=== PATIENT | female | born 1970 | race Two or more races ===

== ENCOUNTER 2020-05-11 10:28 | Outpatient (REF) | payer BC, SELFPAY | END 2020-05-11 10:29 | disposition home or self-care (01) | LOC: HO.LAB 10:28 | PROVIDERS: PCP Internal Medicine; Visit Provider Internal Medicine | DX: Z20.822 Contact with and (suspected) exposure to COVID-19 (principal) | CPT/HCPCS: 36415; C9803; U0003 ==

== ENCOUNTER 2020-05-17 14:38 | Outpatient (REF) | payer BC, SELFPAY ==
[2020-05-21 15:47] LABS: HPV mRNA E6/E7 rflx Not Detected (Not Detected)
== END 2020-05-17 14:39 | disposition home or self-care (01) ==
LOC: HO.LAB 14:38
PROVIDERS: PCP Internal Medicine; Referring Provider Internal Medicine; Visit Provider Advanced Practice Midwife
DX: Z12.4 Encounter for screening for malignant neoplasm of cervix (principal); N95.1 Menopausal and female climacteric states
CPT/HCPCS: 36415; 87624; 88141; 88142

== ENCOUNTER 2020-06-26 09:38 | Outpatient (REF) | payer BC, SELFPAY | END 2020-06-26 09:39 | disposition home or self-care (01) | LOC: HO.LAB 09:38 | PROVIDERS: PCP Internal Medicine; Visit Provider Internal Medicine | DX: Z20.822 Contact with and (suspected) exposure to COVID-19 (principal) | CPT/HCPCS: 36415; C9803; U0003; U0005 ==

== ENCOUNTER 2020-06-26 10:34 | Outpatient (REF) | payer BC, SELFPAY ==
--- NOTE | ~2020-06-26 | XR_ITS ---
EXAMINATION: XR ANKLE, RIGHT CLINICAL INFORMATION: Pain COMPARISON: Right lower leg x-ray December 2013 TECHNIQUE: AP, lateral, and mortise views of the right ankle. FINDINGS: Bone alignment is normal. No fracture or dislocation is seen. Ankle mortise is normal. There are calcaneal spurs. Soft tissues are otherwise unremarkable. XR/XR ankle RT min 3V IMPRESSION: Calcaneal spurs otherwise unremarkable exam.
== END 2020-06-26 10:35 | disposition home or self-care (01) ==
LOC: HO.XRAY 10:34
PROVIDERS: PCP Internal Medicine; Visit Provider Internal Medicine
DX: M25.579 Pain in unspecified ankle and joints of unspecified foot (principal)
CPT/HCPCS: 73610

== ENCOUNTER 2020-08-02 14:47 | Outpatient (REF) | payer BC, SELFPAY ==
--- NOTE | ~2020-08-02 | MM_ITS ---
EXAMINATION: MM SCREENING DIGITAL BREAST TOMOSYNTHESIS, BILATERAL CLINICAL INFORMATION: Screening. Asymptomatic. The lifetime risk of breast cancer based on the Tyrer-Cuzick Model is 7.7%. COMPARISON: Mammography: March 14, 2019 and studies dating back to August 23, 2010. TECHNIQUE: Digital breast tomosynthesis is performed in both the craniocaudal and mediolateral oblique views along with computer-aided detection (CAD). Synthesized 2D images are generated from the tomosynthesis. FINDINGS: The breasts are heterogeneously dense, which may obscure small masses (ACR BI-RADS breast composition Category c). There are no significant masses, abnormal calcifications, or other abnormalities. MM/MM tomosynthesis screening BI IMPRESSION: No mammographic evidence of malignancy. ASSESSMENT: BI-RADS 1: Negative RECOMMENDATION: Routine annual mammography screening. This patient's information was entered into a reminder system with a target due date for their next mammogram.
== END 2020-08-02 14:48 | disposition home or self-care (01) ==
LOC: HO.MAMMO 14:47
PROVIDERS: Visit Provider Advanced Practice Midwife
DX: Z12.31 Encounter for screening mammogram for malignant neoplasm of breast (principal)
CPT/HCPCS: 77063; 77067

== ENCOUNTER → 2020-10-16 14:31 | Outpatient (BNVA) | payer BC, SELFPAY | PROVIDERS: PCP Internal Medicine; Referring Provider Internal Medicine; Visit Provider Physician Assistant ==

== ENCOUNTER 2020-10-18 07:48 | Outpatient (REF) | payer BC, SELFPAY ==
[2020-10-18 09:21] LABS: MANUAL DIFF FLAG NO
[2020-10-18 09:26] LABS: Basophils Percent Auto 0.4 % (0-2); Eosinophils Percent Auto 0.9 % (0-4); Hematocrit 28.2 % (37-47); Hemoglobin 8.7 g/dl (12.0-16.0); Lymphocytes Absolute Auto 1.6 X10*3/uL (1.2-4.9); Mean Corpuscular HGB Conc 30.9 g/dl (31.0-35.0); Mean Corpuscular Hemoglobin 23.3 pg (27.0-33.0); Mean Corpuscular Volume 75.6 fL (80-98); Mean Platelet Volume 10.1 fL (9.4-12.3); Monocytes Absolute Auto 0.4 X10*3/uL (0.1-1.2); Monocytes Percent Auto 9.9 % (2-11); Neutrophils Absolute Auto 2.4 X10*3/uL (2.0-8.3); Neutrophils Percent Auto 52.8 % (45-73); Platelet Count 274 X10*3/uL (160-400); Red Blood Count 3.73 X10*6/uL (4.20-5.50); Red Cell Distribution Width 17.1 % (11.0-16.0); White Blood Count 4.5 X10*3/uL (4.8-10.8)
[2020-10-18 09:41] LABS: Estimated Average Glucose 105 mg/dL; Hemoglobin A1c % 5.3 %
[2020-10-18 09:57] LABS: Alanine Aminotransferase 31 U/L (0-31); Albumin Level 3.8 g/dL (3.5-5.0); Alkaline Phosphatase 70 U/L (39-117); Anion Gap 11 (12-20); Aspartate Amino Transferase 25 U/L (5-31); Bilirubin Total 0.2 mg/dL (0.0-1.0); Blood Urea Nitrogen 14 mg/dL (9-16); C Reactive Protein 0.08 mg/dL (< or = 0.50); Calcium 8.7 mg/dL (8.4-10.2); Carbon Dioxide 27 mmol/L (22-29); Chloride 108 mmol/L (96-108); Cholesterol 162 mg/dL; Estimated Glomerular Filt Rate > 60; Glucose Random 85 mg/dL (60-115); HDL Cholesterol 64 mg/dL; Iron 18 mcg/dL (30-160); LDL Cholesterol Calculated 92 mg/dl; Percent Iron Saturation 4 % (15-50); Potassium 4.6 mmol/L (3.3-5.1); Sodium 141 mmol/L (135-145); Total Iron Binding Capacity 429 mcg/dL (228-428); Total Protein 6.5 g/dL (6.5-8.0); Triglycerides 34 mg/dL; Unsaturated Iron Binding 411 ug/dL
[2020-10-18 10:00] LABS: Ferritin 2 ng/mL (10-250); TSH reflex Free T4 1.85 uIU/mL (0.32-4.0); Vitamin D 25-OH Total 82.8 ng/mL (>30)
[2020-10-18 10:16] LABS: Folate 13.9 ng/mL (> or = 4.0); Vitamin B12 1049 pg/mL (200-900)
[2020-10-19 14:11] LABS: Calcium (PTHI) 8.9 mg/dL (8.6-10.4); PTHI 52 pg/mL (14-64)
[2020-10-19 22:18] LABS: Insulin Level Total 3.3 uIU/mL
[2020-10-22 03:02] LABS: Zinc 79 mcg/dL (60-130)
[2020-10-24 01:51] LABS: Vitamin A 30 mcg/dL (38-98)
[2020-10-24 10:47] LABS: Vitamin B1 19 nmol/L (8-30)
== END 2020-10-18 07:49 | disposition home or self-care (01) ==
LOC: HO.LAB 07:48
PROVIDERS: Absent Provider Internal Medicine; PCP Internal Medicine; Visit Provider Physician Assistant
DX: Z20.822 Contact with and (suspected) exposure to COVID-19 (principal); E65 Localized adiposity; Z98.84 Bariatric surgery status
CPT/HCPCS: 36415; 80053; 80061; 82306; 82607; 82728; 82746; 83036; 83525; 83540; 83970; 84425; 84443; 84590; 84630; 85025; 86140; C9803; U0003; U0005

== ENCOUNTER 2020-12-24 10:36 | Outpatient (REF) | payer BC, SELFPAY ==
[2020-12-24 11:27] LABS: COVID-19 Test Negative (Negative)
== END 2020-12-24 10:37 | disposition home or self-care (01) ==
LOC: HO.LAB 10:36
PROVIDERS: PCP Internal Medicine; Visit Provider Internal Medicine
DX: Z20.822 Contact with and (suspected) exposure to COVID-19 (principal)
CPT/HCPCS: 36415; 87635; C9803

== ENCOUNTER 2021-01-31 09:48 | Outpatient (REF) | payer BC, SELFPAY | END 2021-01-31 09:49 | disposition home or self-care (01) | LOC: HO.LAB 09:48 | PROVIDERS: PCP Internal Medicine; Visit Provider Internal Medicine | DX: Z20.822 Contact with and (suspected) exposure to COVID-19 (principal) | CPT/HCPCS: C9803; U0003; U0005 ==

== ENCOUNTER 2021-04-30 14:47 | Outpatient (REF) | payer BC, SELFPAY ==
[2021-04-30 15:02] LABS: MANUAL DIFF FLAG NO
[2021-04-30 15:29] LABS: Appearance Urine CLEAR; Color Urine YELLOW; Glucose Urine UA NEG (NEG); Leukocyte Esterase Urine NEG (NEG); Nitrite Urine NEG (NEG); Urine Blood NEG (NEG); Urine Ketones NEG (NEG); Urine Protein NEG (NEG-TRACE)
[2021-04-30 15:30] LABS: Basophils Percent Auto 0.5 % (0-2); Eosinophils Absolute Auto 0.1 X10*3/uL (0.0-0.4); Eosinophils Percent Auto 1.1 % (0-4); Hematocrit 34.9 % (37.0-47.0); Hemoglobin 11.4 g/dl (12.0-16.0); Imm Gran Abs Auto 0.01 X10*3/uL (0.00-0.03); Imm Gran Pct Auto 0.2 % (0.0-0.4); Lymphocytes Absolute Auto 2.5 X10*3/uL (1.2-4.9); Mean Corpuscular HGB Conc 32.7 g/dl (31.0-35.0); Mean Corpuscular Hemoglobin 29.7 pg (27.0-33.0); Mean Corpuscular Volume 90.9 fL (80.0-98.0); Mean Platelet Volume 9.8 fL (9.4-12.3); Monocytes Absolute Auto 0.6 X10*3/uL (0.1-1.2); Monocytes Percent Auto 9.4 % (2-11); Neutrophils Absolute Auto 3.1 x10*3/uL (2.0-8.3); Neutrophils Percent Auto 49.8 % (45-73); Platelet Count 242 X10*3/uL (160-400); Red Blood Count 3.84 X10*6/uL (4.20-5.50); Red Cell Distribution Width 12.8 % (11.0-16.0); White Blood Count 6.3 X10*3/uL (4.8-10.8)
[2021-04-30 15:54] LABS: Alanine Aminotransferase 40 U/L (0-31); Albumin Level 3.8 g/dL (3.5-5.0); Alkaline Phosphatase 73 U/L (39-117); Anion Gap 9 (12-20); Aspartate Amino Transferase 30 U/L (5-31); Bilirubin Total 0.5 mg/dL (0.0-1.0); Blood Urea Nitrogen 11 mg/dL (9-16); Calcium 9.4 mg/dL (8.4-10.2); Carbon Dioxide 29 mmol/L (22-29); Chloride 107 mmol/L (96-108); Estimated Glomerular Filt Rate > 60; Glucose Random 88 mg/dL (60-115); Sodium 141 mmol/L (135-145); Total Protein 6.8 g/dL (6.5-8.0)
[2021-04-30 16:14] LABS: TSH reflex Free T4 3.23 uIU/mL (0.32-4.0)
[2021-05-01 17:57] LABS: Follicle Stimulating Hormone 11.4 mIU/mL
[2021-05-06 10:56] LABS: Vitamin A 31 mcg/dL (38-98)
== END 2021-04-30 14:48 | disposition home or self-care (01) ==
LOC: HO.LAB 14:47
PROVIDERS: PCP Internal Medicine; Visit Provider Internal Medicine
DX: Z00.00 Encounter for general adult medical examination without abnormal findings (principal); N95.1 Menopausal and female climacteric states; Z98.84 Bariatric surgery status
CPT/HCPCS: 36415; 80053; 81003; 83001; 83002; 84443; 84590; 85025

== ENCOUNTER 2021-08-05 08:22 | Outpatient (REF) | payer BC, SELFPAY ==
--- NOTE | ~2021-08-05 | MM_ITS ---
EXAMINATION: MM SCREENING DIGITAL BREAST TOMOSYNTHESIS, BILATERAL CLINICAL INFORMATION: Screening. Asymptomatic. The lifetime risk of breast cancer based on the Tyrer-Cuzick Model is 9%. COMPARISON: Mammography: 08/02/2020, 03/14/2019, 03/03/2018 TECHNIQUE: Digital breast tomosynthesis is performed in both the craniocaudal and mediolateral oblique views along with computer-aided detection (CAD). Synthesized 2D images are generated from the tomosynthesis. FINDINGS: The breasts are heterogeneously dense, which may obscure small masses (ACR BI-RADS breast composition Category c). There are no significant masses, abnormal calcifications, or other abnormalities. There are scattered shifting fibroglandular parenchymal densities overall similar to prior studies. Parenchymal pattern is similar to prior studies. The axilla and skin contours are unremarkable. MM/MM tomosynthesis screening BI IMPRESSION: No mammographic evidence of malignancy. ASSESSMENT: BI-RADS 1: Negative RECOMMENDATION: Routine annual mammography screening. This patient's information was entered into a reminder system with a target due date for their next mammogram.
== END 2021-08-05 08:23 | disposition home or self-care (01) ==
LOC: HO.MAMMO 08:22
PROVIDERS: Visit Provider Internal Medicine
DX: Z12.31 Encounter for screening mammogram for malignant neoplasm of breast (principal)
CPT/HCPCS: 77063; 77067

== ENCOUNTER → 2021-09-10 15:20 | Outpatient (BNVA) | payer BC, SELFPAY | PROVIDERS: PCP Internal Medicine; Visit Provider Advanced Practice Midwife | DX: Z01.419 Encounter for gynecological examination (general) (routine) without abnormal findings (principal) ==

== ENCOUNTER → 2021-09-26 13:56 | Outpatient (BNVA) | payer BC, SELFPAY | PROVIDERS: PCP Internal Medicine; Referring Provider Surgery; Visit Provider Dietitian, Registered | DX: E66.9 Obesity, unspecified (principal) | CPT/HCPCS: 97803 ==

== ENCOUNTER 2021-12-02 12:00 | Outpatient (REF) | payer BC, SELFPAY ==
[2021-12-02 12:18] LABS: MANUAL DIFF FLAG NO
[2021-12-02 12:32] LABS: Basophils Absolute Auto 0.1 X10*3/uL (0.0-0.2); Basophils Percent Auto 0.7 % (0-2); Eosinophils Absolute Auto 0.1 X10*3/uL (0.0-0.4); Eosinophils Percent Auto 0.9 % (0-4); Hemoglobin 9.4 g/dl (12.0-16.0); Imm Gran Abs Auto 0.01 X10*3/uL (0.00-0.03); Imm Gran Pct Auto 0.1 % (0.0-0.4); Lymphocytes Absolute Auto 2.7 X10*3/uL (1.2-4.9); Mean Corpuscular HGB Conc 31.3 g/dl (31.0-35.0); Mean Corpuscular Hemoglobin 23.9 pg (27.0-33.0); Mean Corpuscular Volume 76.3 fL (80.0-98.0); Monocytes Absolute Auto 0.5 X10*3/uL (0.1-1.2); Monocytes Percent Auto 7.7 % (2-11); Neutrophils Absolute Auto 3.6 x10*3/uL (2.0-8.3); Neutrophils Percent Auto 51.6 % (45-73); Platelet Count 266 X10*3/uL (160-400); Red Blood Count 3.93 X10*6/uL (4.20-5.50); Red Cell Distribution Width 15.2 % (11.0-16.0); White Blood Count 6.9 X10*3/uL (4.8-10.8)
[2021-12-02 12:55] LABS: Estimated Average Glucose 105 mg/dL; Hemoglobin A1c % 5.3 %
[2021-12-02 13:05] LABS: Alanine Aminotransferase 35 U/L (0-31); Albumin Level 3.9 g/dL (3.5-5.0); Alkaline Phosphatase 67 U/L (39-117); Anion Gap 12 (12-20); Aspartate Amino Transferase 30 U/L (5-31); Bilirubin Total 0.4 mg/dL (0.0-1.0); Blood Urea Nitrogen 12 mg/dL (9-16); C Reactive Protein 0.05 mg/dL (< or = 0.50); Calcium 8.8 mg/dL (8.4-10.2); Carbon Dioxide 25 mmol/L (22-29); Chloride 106 mmol/L (96-108); Cholesterol 167 mg/dL; Estimated Glomerular Filt Rate > 60; Glucose Random 86 mg/dL (60-115); HDL Cholesterol 62 mg/dL; Iron 31 mcg/dL (30-160); LDL Cholesterol Calculated 98 mg/dl; Percent Iron Saturation 7 % (15-50); Potassium 4.1 mmol/L (3.3-5.1); Sodium 139 mmol/L (135-145); Total Iron Binding Capacity 446 mcg/dL (228-428); Total Protein 6.9 g/dL (6.5-8.0); Triglycerides 36 mg/dL; Unsaturated Iron Binding 415 ug/dL
[2021-12-02 13:17] LABS: Free T4 (Free Thyroxine) 1.11 ng/dL (0.71-1.85); Thyroid Stimulating Hormone 4.07 uIU/mL (0.32-4.0)
[2021-12-02 13:26] LABS: Ferritin 7 ng/mL (10-250); Insulin 5 uU/mL (2-29); TSH reflex Free T4 4.57 uIU/mL (0.32-4.0); Vitamin D 25-OH Total 76.2 ng/mL (>30)
[2021-12-02 13:28] LABS: Folate 15.6 ng/mL (> or = 4.0); Vitamin B12 1535 pg/mL (200-900)
[2021-12-03 11:12] LABS: Calcium (PTHI) 8.9 mg/dL (8.6-10.4); PTHI 84 pg/mL (16-77)
[2021-12-04 05:15] LABS: Triiodothyronine T3 Free 2.8 pg/mL (2.3-4.2)
[2021-12-04 06:37] LABS: Thyroid Peroxidase Antibodies 76 IU/mL (<9)
[2021-12-06 14:36] LABS: Zinc 145 mcg/dL (60-130)
[2021-12-06 17:23] LABS: Vitamin A 31 mcg/dL (38-98)
[2021-12-09 11:42] LABS: Vitamin B1 23 nmol/L (8-30)
== END 2021-12-02 12:01 | disposition home or self-care (01) ==
LOC: HO.LAB 12:00
PROVIDERS: Absent Provider Physician Assistant; Visit Provider Nurse Practitioner Family
DX: E50.9 Vitamin A deficiency, unspecified (principal); E55.9 Vitamin D deficiency, unspecified; R63.5 Abnormal weight gain; L65.9 Nonscarring hair loss, unspecified; Z98.84 Bariatric surgery status
CPT/HCPCS: 36415; 80053; 80061; 82306; 82607; 82728; 82746; 83036; 83525; 83540; 83970; 84425; 84439; 84443; 84481; 84590; 84630; 85025; 86140; 86376

== ENCOUNTER → 2021-12-20 11:14 | Outpatient (BNV) | payer BC, SELFPAY | PROVIDERS: PCP Nurse Practitioner Family; Referring Provider Nurse Practitioner Family; Visit Provider Internal Medicine | DX: D50.9 Iron deficiency anemia, unspecified (principal) | CPT/HCPCS: 99204; 99213; 99214 ==

== ENCOUNTER 2022-01-22 11:27 | Outpatient (REF) | payer BC, SELFPAY | END 2022-01-22 11:28 | disposition home or self-care (01) | LOC: HO.MDS 11:27 | PROVIDERS: Visit Provider Internal Medicine | DX: D50.9 Iron deficiency anemia, unspecified (principal) | CPT/HCPCS: 96365; J1756 ==

== ENCOUNTER 2022-01-30 09:07 | Outpatient (REF) | payer BC, SELFPAY | END 2022-01-30 09:08 | disposition home or self-care (01) | LOC: HO.MDS 09:07 | PROVIDERS: Visit Provider Internal Medicine | DX: D50.9 Iron deficiency anemia, unspecified (principal) | CPT/HCPCS: 96365; J1756 ==

== ENCOUNTER 2022-02-06 09:01 | Outpatient (REF) | payer BC, SELFPAY | END 2022-02-06 09:02 | disposition home or self-care (01) | LOC: HO.MDS 09:01 | PROVIDERS: Visit Provider Internal Medicine | DX: D50.9 Iron deficiency anemia, unspecified (principal) | CPT/HCPCS: 96365; J1756 ==

== ENCOUNTER 2022-02-13 07:56 | Outpatient (REF) | payer BC, SELFPAY | END 2022-02-13 07:57 | disposition home or self-care (01) | LOC: HO.MDS 07:56 | PROVIDERS: Visit Provider Internal Medicine | DX: D50.9 Iron deficiency anemia, unspecified (principal) | CPT/HCPCS: 96365; J1756 ==

== ENCOUNTER 2022-02-17 16:15 | Outpatient (REF) | payer BC, SELFPAY ==
[2022-02-18 14:03] LABS: H Pylori Breath Test Negative (Negative)
== END 2022-02-17 16:16 | disposition home or self-care (01) ==
LOC: HO.LNP 16:15
PROVIDERS: Visit Provider Physician Assistant
DX: A04.8 Other specified bacterial intestinal infections (principal)
CPT/HCPCS: 83013

== ENCOUNTER 2022-02-20 07:58 | Outpatient (REF) | payer BC, SELFPAY | END 2022-02-20 07:59 | disposition home or self-care (01) | LOC: HO.MDS 07:58 | PROVIDERS: Visit Provider Internal Medicine | DX: D50.9 Iron deficiency anemia, unspecified (principal) | CPT/HCPCS: 96365; J1756 ==

== ENCOUNTER 2022-03-04 07:04 | Outpatient (REF) | payer BC, SELFPAY ==
[2022-03-04 07:27] LABS: Hematocrit 37.3 % (37.0-47.0); Hemoglobin 12.6 g/dl (12.0-16.0); Mean Corpuscular HGB Conc 33.8 g/dl (31.0-35.0); Mean Corpuscular Volume 85.7 fL (80.0-98.0); Mean Platelet Volume 9.8 fL (9.4-12.3); Platelet Count 206 X10*3/uL (160-400); Red Blood Count 4.35 X10*6/uL (4.20-5.50); Red Cell Distribution Width 18.3 % (11.0-16.0); White Blood Count 7.3 X10*3/uL (4.8-10.8)
[2022-03-04 08:07] LABS: Free T4 (Free Thyroxine) 1.24 ng/dL (0.71-1.85); TSH reflex Free T4 0.78 uIU/mL (0.32-4.0)
[2022-03-05 12:12] LABS: Transglutaminase IgA <1.0 U/mL
[2022-03-05 12:22] LABS: Thyroid Peroxidase Antibodies 90 IU/mL (<9)
[2022-03-08 13:06] LABS: Endomysial IgA Antibody Negative (Negative)
== END 2022-03-04 07:05 | disposition home or self-care (01) ==
LOC: HO.LAB 07:04
PROVIDERS: Physician Assistant; Absent Provider Internal Medicine Endocrinology, Diabetes & Metabolism; PCP Nurse Practitioner Family; Visit Provider Nurse Practitioner Family
DX: E03.9 Hypothyroidism, unspecified (principal); D64.9 Anemia, unspecified
CPT/HCPCS: 36415; 84439; 84443; 85027; 86231; 86364; 86376

== ENCOUNTER → 2022-05-30 08:04 | Outpatient (BNVA) | payer BC, SELFPAY | PROVIDERS: PCP Nurse Practitioner Family; Visit Provider Internal Medicine Endocrinology, Diabetes & Metabolism | DX: E03.9 Hypothyroidism, unspecified (principal) ==

== ENCOUNTER 2022-08-11 07:51 | Outpatient (REF) | payer BC, SELFPAY ==
--- NOTE | ~2022-08-11 | MM_ITS ---
EXAMINATION: MM SCREENING DIGITAL BREAST TOMOSYNTHESIS, BILATERAL CLINICAL INFORMATION: Screening. Asymptomatic. The lifetime risk of breast cancer based on the Tyrer-Cuzick Model is 10%. COMPARISON: Mammography: 08/05/2021, 08/02/2020, 03/14/2019, 03/03/2018 TECHNIQUE: Digital breast tomosynthesis is performed in both the craniocaudal and mediolateral oblique views along with computer-aided detection (CAD). Synthesized 2D images are generated from the tomosynthesis. FINDINGS: The breasts are heterogeneously dense, which may obscure small masses (ACR BI-RADS breast composition Category c). Parenchymal pattern is similar to prior studies. There is no developing density or architectural abnormality. There are scattered bilateral minor stable asymmetries. The axilla and skin contours are unremarkable. There are no significant masses, abnormal calcifications, or other abnormalities. No significant changes from prior exams. MM/MM tomosynthesis screening BI IMPRESSION: No mammographic evidence of malignancy. ASSESSMENT: BI-RADS 2: Benign RECOMMENDATION: Routine annual mammography screening. This patient's information was entered into a reminder system with a target due date for their next mammogram.
== END 2022-08-11 07:52 | disposition home or self-care (01) ==
LOC: HO.MAMMO 07:51
PROVIDERS: PCP Internal Medicine; Visit Provider Internal Medicine
DX: Z12.31 Encounter for screening mammogram for malignant neoplasm of breast (principal)
CPT/HCPCS: 77063; 77067

== ENCOUNTER 2022-08-20 09:26 | Outpatient (REF) | payer BC, SELFPAY ==
[2022-08-20 10:33] LABS: Hematocrit 37.3 % (37.0-47.0); Hemoglobin 12.6 g/dl (12.0-16.0); Mean Corpuscular HGB Conc 33.8 g/dl (31.0-35.0); Mean Corpuscular Hemoglobin 30.1 pg (27.0-33.0); Mean Platelet Volume 9.9 fL (9.4-12.3); Platelet Count 228 X10*3/uL (160-400); Red Blood Count 4.19 X10*6/uL (4.20-5.50); Red Cell Distribution Width 12.9 % (11.0-16.0); White Blood Count 7.1 X10*3/uL (4.8-10.8)
[2022-08-20 11:12] LABS: Anion Gap 9 (12-20); Blood Urea Nitrogen 20 mg/dL (9-16); Carbon Dioxide 29 mmol/L (22-29); Chloride 108 mmol/L (96-108); Estimated Glomerular Filt Rate > 60; Glucose Random 84 mg/dL (60-115); Potassium 4.4 mmol/L (3.3-5.1); Sodium 142 mmol/L (135-145)
[2022-08-20 11:44] LABS: Folate 5.9 ng/mL (> or = 4.0); TSH reflex Free T4 2.32 uIU/mL (0.32-4.0); Vitamin B12 877 pg/mL (200-900); Vitamin D 25-OH Total 88.8 ng/mL (>30)
== END 2022-08-20 09:27 | disposition home or self-care (01) ==
LOC: HO.LAB 09:26
PROVIDERS: PCP Nurse Practitioner Family; Visit Provider Nurse Practitioner Family
DX: R63.5 Abnormal weight gain (principal); M79.604 Pain in right leg; R22.0 Localized swelling, mass and lump, head; R12 Heartburn; E03.9 Hypothyroidism, unspecified; D64.9 Anemia, unspecified; J45.909 Unspecified asthma, uncomplicated; L65.9 Nonscarring hair loss, unspecified; Z98.84 Bariatric surgery status
CPT/HCPCS: 36415; 80048; 82306; 82607; 82746; 84443; 85027

== ENCOUNTER 2022-09-04 01:35 | Emergency (ER) | payer BC, SELFPAY ==
[2022-09-04 01:36] VITALS: BP 127/85; PULSE 78; RESP 18; TEMP 36.8; O2SAT 98; BMI 29.9
--- NOTE | 2022-09-04 03:19 | PC.NURSE ---
hand off to yoseph archuleta
[2022-09-04 05:41] VITALS: BP 124/66; PULSE 69; RESP 15; TEMP 36.7; O2SAT 98
== END 2022-09-04 06:19 | disposition left against medical advice (07) ==
PROVIDERS: Emergency Provider Emergency Medicine; PCP Nurse Practitioner Family
DX: S89.91XA Unspecified injury of right lower leg, initial encounter (principal); X50.1XXA Overexertion from prolonged static or awkward postures, initial encounter; Y93.9 Activity, unspecified; Y92.89 Other specified places as the place of occurrence of the external cause; Y99.0 Civilian activity done for income or pay
CPT/HCPCS: 99281; 99284

== ENCOUNTER → 2022-10-02 09:52 | Outpatient (BNVA) | payer BC, SELFPAY | PROVIDERS: PCP Internal Medicine; Visit Provider Orthopaedic Surgery ==

== ENCOUNTER 2022-10-22 11:42 | Day surgery (SDC) | payer BC, SELFPAY ==
--- NOTE | 2022-10-21 11:49 | HO.ANESPROP2 ---
Documented by User: Annette Demarco NP 10/21/22 11:51 HPI - Anesthesia Eval Consult details Narrative: 52yo F for Upper Endoscopy and Colonoscopy PMF Active Problems Active Problems: All Active Problems (Updated 10/17/22 @ 13:34 by Angela Winslow RN) Well woman exam with routine gynecological exam (Acute) Perimenopause (Acute) Ankle pain (Acute) Obese abdomen (Acute) Annual physical exam (Acute) Iron deficiency anemia (Acute) S/P gastric bypass (Acute) Encounter for annual routine gynecological examination (Acute) Weight gain (Acute) Hair loss (Acute) Anemia (Chronic) Elevated parathyroid hormone (Acute) Hypothyroidism (Acute) Heartburn (Acute) Allergic reaction to food (Acute) Swelling of face (Acute) Right leg pain (Acute) Strain of distal biceps femoris tendon (Acute) Tear of right hamstring (Acute) Asthma (Acute) Vitamin D deficiency (Acute) Vitamin A deficiency (Acute) Obesity (BMI 30-39.9) (Acute) Past Medical History Medical History Anemia Asthma Hypothyroid Obesity (BMI 30-39.9) PCOS (polycystic ovarian syndrome) Vitamin A deficiency Vitamin D deficiency Family History Family History Father CAD (coronary artery disease) Mother Thyroid cancer TIA (transient ischemic attack) Alcoholism Sister Thyroid cancer Maternal Aunt History of breast cancer Other Substance abuse Surgical History Surgical History Hx of gastric bypass Hx of tubal ligation LAP-BAND surgery status Social History Social History (Updated 10/02/22 @ 10:06 by Lore Redman CMA) Household Members: Spouse Housing: House Alcohol intake: never Patient Tobacco Use Status: Never used Tobacco Second Hand Smoke Exposure: Yes Use of substances other than those prescribed or required for medical reasons: No Are you DNR?: No Advance Directives: No Advance Directives Information Provided: Yes Patient : No (Tubal ligation) service: No Current occupational status: employed 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 Sexual orientation: Straight/Heterosexual Cognitive needs: No Hearing needs: No Vision needs: Yes Meds Allergies Allergy/AdvReac Type Severity Reaction Status Date / Time adhesive tape [ADHESIVE TAPE] Allergy Intermediate BLISTERS Verified 09/18/22 11:42 shellfish derived Allergy Intermediate HIVES Verified 09/18/22 11:42 [SHELLFISH DERIVED] silver Allergy Intermediate BLISTERS Verified 09/18/22 11:42 [From TEGADERM AG MESH] procaine [From Novocain] Allergy Unknown Unknown Verified 09/18/22 11:42 Home Medications Medication Instructions Recorded Confirmed Last Taken Type ascorbic acid (vitamin C) 500 mg 500 mg PO DAILY 10/16/20 10/17/22 Unknown History capsule calcium carbonate 500 mg calcium 500 mg PO DAILY 10/16/20 10/17/22 Unknown History (1,250 mg) chewable tablet (Calcium 500) cholecalciferol (vitamin D3) 50 50 mcg PO DAILY 10/16/20 10/17/22 Unknown History mcg (2,000 unit) capsule Exam Exam Date and Time: October 21, 2022 114 Pertinent Lab Results Pertinent Lab Results: Laboratory Tests 08/20/22 08/20/22 09:37 09:37 WBC 7.1 Hgb 12.6 Hct 37.3 Plt Count 228 Sodium 142 Potassium 4.4 Chloride 108 Carbon Dioxide 29 BUN 20 H Creatinine 0.84 Assessment and Plan Assessment Anesthesia Assessment: Chart Reviewed Documented by User: Emiliana Petersen MD 10/22/22 12:52 [facility] Past Medical History Medical History Anemia Asthma Hypothyroid Obesity (BMI 30-39.9) PCOS (polycystic ovarian syndrome) Vitamin A deficiency Vitamin D deficiency Family History Family History Father CAD (coronary artery disease) Mother Thyroid cancer TIA (transient ischemic attack) Alcoholism Sister Thyroid cancer Maternal Aunt History of breast cancer Other Substance abuse Family history of problems with anesthesia: No Surgical History Surgical History Hx of gastric bypass Hx of tubal ligation LAP-BAND surgery status History of Problems with Anesthesia: No Social History Social History (Updated 10/02/22 @ 10:06 by Lore Redman CMA) Household Members: Spouse Housing: House Alcohol intake: never Patient Tobacco Use Status: Never used Tobacco Second Hand Smoke Exposure: Yes Use of substances other than those prescribed or required for medical reasons: No Are you DNR?: No Advance Directives: No Advance Directives Information Provided: Yes Patient : No (Tubal ligation) service: No Current occupational status: employed 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 Sexual orientation: Straight/Heterosexual Cognitive needs: No Hearing needs: No Vision needs: Yes Meds Allergies Allergy/AdvReac Type Severity Reaction Status Date / Time adhesive tape [ADHESIVE TAPE] Allergy Intermediate BLISTERS Verified 09/18/22 11:42 shellfish derived Allergy Intermediate HIVES Verified 09/18/22 11:42 [SHELLFISH DERIVED] silver Allergy Intermediate BLISTERS Verified 09/18/22 11:42 [From TEGADERM AG MESH] procaine [From Novocain] Allergy Unknown Unknown Verified 09/18/22 11:42 Home Medications Medication Instructions Recorded Confirmed Last Taken Type ascorbic acid (vitamin C) 500 mg 500 mg PO DAILY 10/16/20 10/17/22 Unknown History capsule calcium carbonate 500 mg calcium 500 mg PO DAILY 10/16/20 10/17/22 Unknown History (1,250 mg) chewable tablet (Calcium 500) cholecalciferol (vitamin D3) 50 50 mcg PO DAILY 10/16/20 10/17/22 Unknown History mcg (2,000 unit) capsule Exam Airway Mallampati Class: II (top 3 front teeth caps) TM Dist: >3cm Neck ROM: Full Heart: rrr Lungs: cta Assessment and Plan Assessment Anesthesia Assessment: Anesthesia Plan Discussed Final Anesthetic Review Family History of Problems with Anesthesia: No History of Problems with Anesthesia: No NPO: Yes ASA Class: II Final Preanesthetic Review: No Changes in Pt Med Stat, Meds/Allgs Chart Reviewed and Consent Obtained/Reviewed Patient Risk: Intermediate Procedure Risk: Intermediate Anesthetic Plan Anesthetic Plan: MAC: Disposition: Standard PACU
[2022-10-22 12:21] VITALS: BMI 39.1
[2022-10-22 12:27] VITALS: BP 133/80; PULSE 58; RESP 16; TEMP 36.1; O2SAT 98
[2022-10-22 12:30] VITALS: BMI 39.1
--- NOTE | 2022-10-22 12:43 | P.HPSUR_ITS ---
Pre-Procedural Eval Section A Date of Service: 10/22/22 Section B Chief Complaint: anemia Relevant Family History (Specify if Yes): Yes Relevant Social History: None Present Medications: see Short Stay Collaborative assessment Medical History: Significant History (Anemia Asthma Hypothyroid Obesity (BMI 30- 39.9) PCOS (polycystic ovarian syndrome) Vitamin A deficiency Vitamin D deficiency) History of Previous Operations: Relevant previous surgery/procedure and date(s) (Hx of gastric bypass Hx of tubal ligation LAP-BAND surgery status) Allergies: Allergies Allergy/AdvReac Type Severity Reaction Status Date / Time adhesive tape [ADHESIVE TAPE] Allergy Intermediate BLISTERS Verified 09/18/22 11:42 shellfish derived Allergy Intermediate HIVES Verified 09/18/22 11:42 [SHELLFISH DERIVED] silver Allergy Intermediate BLISTERS Verified 09/18/22 11:42 [From TEGADERM AG MESH] procaine [From Novocain] Allergy Unknown Unknown Verified 09/18/22 11:42 Review of Systems Sugical H&P ROS: Negative: Constitution, Cardiovascular, Respiratory, Neurol ogical, Psychiatric, Hem-Onc, Allergic/Immunologic, Gastrointestinal, Genitourinary, Musculoskeletal, Integumentary, Endocrine and Eyes/Ears/Nose/Throat Exam Surgical H&P Exam: Normal: HEENT, Normal: Heart, Normal: Lungs, Normal: Extremities, Normal: Abdomen, Normal: Skin and Normal: Neurological Plan Diagnosis/Plan: Unchanged I have reviewed the history and physical and performed a pertinent physical examination on my patient. No changes have occurred unless specified. Time Spent With Patient Time: Total time managing care of this patient today ____ minutes.
[2022-10-22] MEDS: Lactated Ringers 1,000 ML 100 ML IVCONT (12:45)
--- NOTE | 2022-10-22 12:50 | W.PM.OPN ---
Operative Note Operative Note Date of Service: 10/22/22 Narrative: Operative Information Procedure Description: EGD, Colonoscopy Indication: anemia Anesthesia: MAC FLEXIBLE TRANSORAL UPPER GASTROINTESTINAL ENDOSCOPY AND COLONOSCOPY PROCEDURE NOTE UPPER ENDOSCOPY Consent: Indications for the procedure and potential complications of bleeding, perforation, reaction to medications and missed diagnosis were discussed with the patient and informed consent was obtained. Instrument: Olympus GIF H 190 J mid size upper endoscope Monitoring: Vital signs and clinical assessment, continuous EKG monitoring, Pulse oximetry, Carbon Dioxide monitoring and blood pressure monitoring were done throughout the procedure. Procedure: The patient was placed in the left lateral decubitis position and pre-procedure medications were administered and a bite block was placed. The endoscope was inserted into the mouth and advanced under direct vision to the third part of duodenum. A careful inspection was made as the upper endoscope was withdrawn including a retroflexed examination of the proximal stomach; Findings and interventions are described below. History of gastric bypass Findings: Larynx:normal Esophagus: GE junction at 36 cm, diaphragm hiatus at 36 cm, bogginess and erythema at GEJ, bx taken Stomach pouch: Patchy erythema around the anastomosis. Biopsies were obtained. Grade 2 flap valve on retroflexed examination of the cardia. Retained staple with suture noted and removed with cold forceps Jejunum: Normal , bx taken Intervention: Biopsies as noted above, removal of retained suture and staple COLONOSCOPY Instrument: Olympus variable stiffness pediatric scope 190L Colonoscopy Monitoring: Vital signs and clinical assessment, continuous EKG monitoring, Pulse oximetry, Carbon Dioxide monitoring and blood pressure monitoring were done throughout the procedure. Colon withdrawal time was 6 minutes. Procedure: The patient was placed in the left lateral decubitis position and pre-procedure medications were administered. After a digital rectal examination of the ano-rectum, the video colonoscope was inserted into the rectum and advanced through the colon to the cecum/TI. The colonoscope was slowly withdrawn in a retrograde panoramic fashion and the colon mucosa was carefully examined including a retroflexed view of the rectum. Findings and interventions are described below. Procedure Difficulty: moderate due to tortuous colon Findings: Terminal Ileum-normal Cecum:normal Ascending Colon: normal Transverse Colon -normal Descending Colon:normal Sigmoid Colon: normal Rectum: Retroflexion with medium sized internal hemorrhoids, grade II Anorectum - normal Colon preparation: Winslow Bowel Preparation Scale Right colon; 2 Transverse colon: 3 Left colon; 3 (0 = Unprepared colon segment with mucosa not seen due to solid stool that cannot be cleared. 1 = Portion of mucosa of the colon segment seen, but other areas of the colon segment not well seen due to staining, residual stool and/or opaque liquid. 2 = Minor amount of residual staining, small fragments of stool and/or opaque liquid, but mucosa of colon segment seen well. 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
[2022-10-22 13:35] VITALS: BP 109/63; PULSE 84; RESP 16; TEMP 36.4; O2SAT 96
[2022-10-22 13:53] VITALS: BP 130/80; PULSE 65; RESP 17; TEMP 36.8; O2SAT 99
== END 2022-10-22 14:39 | disposition home or self-care (01) ==
PROVIDERS: PCP Nurse Practitioner Family; Visit Provider Internal Medicine Gastroenterology
PROC: (CPT 45378; principal; 2022-10-22 13:20)
DX: D64.9 Anemia, unspecified (principal); K64.1 Second degree hemorrhoids; Q43.8 Other specified congenital malformations of intestine; Z98.84 Bariatric surgery status; K29.50 Unspecified chronic gastritis without bleeding; K20.80 Other esophagitis without bleeding; K44.9 Diaphragmatic hernia without obstruction or gangrene; Z18.9 Retained foreign body fragments, unspecified material; R12 Heartburn; E03.9 Hypothyroidism, unspecified; E50.9 Vitamin A deficiency, unspecified; E55.9 Vitamin D deficiency, unspecified; E66.9 Obesity, unspecified; Z68.36 Body mass index [BMI] 36.0-36.9, adult; J45.909 Unspecified asthma, uncomplicated; E28.2 Polycystic ovarian syndrome; Z79.899 Other long term (current) drug therapy; L23.1 Allergic contact dermatitis due to adhesives; Z88.8 Allergy status to other drugs, medicaments and biological substances; Z98.51 Tubal ligation status
CPT/HCPCS: 45378; 43239; 43247; 88305; 88342

== ENCOUNTER 2022-10-31 13:00 | Outpatient (RCR) | payer OTHER, BC, SELFPAY ==
--- NOTE | 2022-09-18 11:57 | MHC.PT.EP ---
[facility] [place] [facility] Office [place] Office [address] [phone] F: [phone] F: [phone] F: [phone] F: [phone] Physical Therapy Plan of Care Date of Evaluation: Date of Surgery: n/a Diagnosis: pain in R leg Assessment: Patient is a 52 year old female presenting to PT with complaints of pain in her R thigh. Pt reports onset of pain began 09/04/2022 due to restraining a client at work. She presents today with impairments in pain, knee ROM, hip strength, swelling, bruising. 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 Pt expresses intermediate manager goal of returning to [employer], and is motivated to work towards this in PT. Clinical presentation today is most consistent with signs and sx associated with possible hs injury with possible tear due to severe bruising and pt will benefit from skilled PT 2 week x 4 weeks to address the following problems and impairments noted upon evaluation: pain, knee ROM, hip strength, swelling, bruising. These problems limit the patient with the following functional activities: ambulating, stair negotiation, ADLs, sitting, standing. The prescribed treatment plan of care is medically necessary. Co-morbidities of none were identified and taken into considerations of plan of care. Pt was educated on HEP, role of PT, prognosis, POC. Advised pt to get referral to ortho due to severity of bruising and concern for possible hs tear to be sure the injury is managed properly. Frequency and Duration: The patient will be seen 2 x week x 4 weeks Short Term Goals: Pt will demonstrate improved bruising to distal hs in 2 weeks. Pt will demonstrate hip MMT strength at least 4/5 in 2 weeks for improved lumbopelvic stability. Pt will demonstrate knee MMT strength improved by 1/3 grade in 2 weeks. Pt will demonstrate ability to sit with equal weight distribution in 2 weeks and minimal pain. Senior Living Goals: Pt will demonstrate improved LEFI score by 9 points in 4 weeks for improved functional mobility. Pt will demonstrate ability to ambulate with normal mechanics in 4 weeks for improved ability to work and complete ADLs. Pt will demonstrate ability to negotiate stairs with min to no pain in 4 weeks for return to PLOF. Treatment Plan: Modalities to reduce pain, spasms and effusion. Manual therapy to restore motion and function. Therapeutic exercise to improve strength and flexibility. Neuromuscular re-education for posture and balance. Therapeutic activities to return to functional activities of daily living. Electronically signed by: Denice Doyle, PT, DPT, ATC Please sign and return to therapist. Thank you for your referral.
--- NOTE | 2022-10-31 14:02 | MHC.PT.DC ---
[facility] [place] Office [place] Office [place] Office [address] [phone] F: [phone] F: [phone] F: [phone] F: [phone] Physical Therapy Discharge Report Diagnosis: pain in R leg Date of Surgery: n/a Date of Evaluation: 09/18/22 Date of Discharge: 10/31/22 Treatments to Date: 5 Cancellations to Date: 2 No Shows to Date: 2 Discharge Status: Improved Function Independent with HEP Discharge Summary: 10/31/2022: Pt has made progress since start of care. Her strength, ROM, and bruising is improved however she is still having some difficulty descending stairs. She is independent and compliant with her HEP and understands importance of custodial continuation. At this time max benefits of PT have been provided and skilled PT is no longer indicated. We reviewed amount of time until full recovery as well as following up with the doctor if issues continue longer term. She is in agreement with d/c and plan. Electronically signed by: Denice Doyle, PT, DPT, ATC Please sign and return to therapist. Thank you for your referral.
== END 2022-10-31 14:02 | disposition home or self-care (01) ==
LOC: HO.PTCHIC 13:00
PROVIDERS: PCP Internal Medicine; Visit Provider Internal Medicine
DX: S86.811A Strain of other muscle(s) and tendon(s) at lower leg level, right leg, initial encounter (principal)
CPT/HCPCS: 97110; 97140; 97161

== ENCOUNTER → 2022-11-05 07:53 | Outpatient (BNVA) | payer BC, SELFPAY | PROVIDERS: Visit Provider Physician Assistant | DX: D64.9 Anemia, unspecified (principal); K21.9 Gastro-esophageal reflux disease without esophagitis; Z98.84 Bariatric surgery status; Z98.890 Other specified postprocedural states | CPT/HCPCS: 99212 ==

== ENCOUNTER 2023-01-21 11:56 | Outpatient (AMB) | payer BC, SELFPAY ==
--- NOTE | 2023-01-21 12:58 | MHC.OFFWIV ---
Intake Vital Signs 01/21/23 13:01 Height 25 in Weight 213 lb BMI 239.6 BP 122/74 Blood Pressure Location Rt brachial Position Sitting Pulse 65 Pulse Source Pulse Oximeter Temp 97.3 F Temp Source Temporal Artery Scan Pulse Oximetry (%) 98 Oxygen Delivery Method Room Air Intake Visit Reasons: EP ?Strep (masked) Intake Note: Pt is here requesting to get tested for strep as multiple people tested ositive and she now has a sore throat. Patient Tobacco Use Status: Never used Tobacco Allergies adhesive tape [ADHESIVE TAPE] Allergy (Intermediate, Verified 01/21/23 13:29) BLISTERS shellfish derived [SHELLFISH DERIVED] Allergy (Intermediate, Verified 01/21/23 13:29) HIVES silver [From TEGADERM AG MESH] Allergy (Intermediate, Verified 01/21/23 13:29) BLISTERS procaine [From Novocain] Allergy (Unknown, Verified 01/21/23 13:29) Unknown Medication List - Last Reconciled 01/21/23 by Ki Stout MD albuterol sulfate 90 mcg/actuation (ProAir HFA) 2 puffs inhalation Q6H PRN 30 days ascorbic acid (vitamin C) 500 mg PO DAILY azithromycin take 500 mg today (day 1), then 250 mg for 4 days (days 2-5) PO calcium carbonate (Calcium 500) 500 mg PO DAILY cholecalciferol (vitamin D3) 50 mcg PO DAILY epinephrine (EpiPen 2-Constantine) 0.3 mg (0.3 mL) IM Q4H PRN levothyroxine (Synthroid) 75 mcg PO DAILY loratadine 10 mg PO DAILY magnesium 250 mg PO BID omeprazole 20 mg PO DAILY 30 days tizanidine (Zanaflex) 4 mg PO BID PRN 10 days vitamin A 20,000 units PO DAILY 90 days zinc acetate (Galzin) 50 mg PO DAILY Do you need a note to return to daycare/school/sports/work: Yes HPI EP ?Strep (masked) HPI Details Patient presents for a sick visit. Reporting symptoms of sinus congestion, sore throat and difficulty swallowing. Low-grade fever. No family member is sick. No recent travel. Patient reports symptoms of malaise and fatigue. [facility] Medical History Anemia Asthma Hypothyroid Obesity (BMI 30-39.9) PCOS (polycystic ovarian syndrome) Vitamin A deficiency Vitamin D deficiency Surgical History History of esophagogastroduodenoscopy (EGD) Hx of colonoscopy Hx of gastric bypass Hx of tubal ligation LAP-BAND surgery status Family History Father CAD (coronary artery disease) Mother Thyroid cancer TIA (transient ischemic attack) Alcoholism Sister Thyroid cancer Maternal Aunt History of breast cancer Other Substance abuse Social History Household Members: Spouse Housing: House Alcohol intake: never Patient Tobacco Use Status: Never used Tobacco Second Hand Smoke Exposure: Yes service: No Current occupational status: employed 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 Sexual orientation: Straight/Heterosexual Cognitive needs: No Hearing needs: No Vision needs: Yes Female Reproductive History Menstrual Age of Menarche: 9 Physical Exam Vital Signs: Last Vital Signs Temp 97.3 F 01/21/23 13:01 Pulse 65 01/21/23 13:01 BP 122/74 01/21/23 13:01 Pulse Ox 98 01/21/23 13:01 Oxygen Delivery Method Room Air 01/21/23 13:01 BMI result Body Mass Index 239.6 Const General: cooperative and healthy appearing Nutritional Appearance: well nourished Orientation/consciousness: patient oriented x3 Limitations: no limitations HEENT Head: Yes normal to inspection Eyes General: appearance normal, both eyes and all related structures Neck Neck: Yes normal visual inspection Chest Chest palpation & inspection: normal palpation of entire chest wall Resp Effort & Inspection: normal respiratory effort Neuro General: patient oriented x3 Results AMB Rapid Strep AMB Rapid Strep Negative Last Edit by Luciana Mills CMA on 01/21/23 13:13 Results Reviewed Results Reviewed: Laboratory Last Values Strep Scn Rapid Clinic Negative 01/21/23 13:12 Assessment & Plan Assessment & Plan (1) Upper respiratory tract infection: Code(s): J06.9 - Acute upper respiratory infection, unspecified Qualifiers: URI type: acute pharyngitis Pharyngitis/tonsillitis etiology: unspecified etiology Qualified Code(s): J02.9 - Acute pharyngitis, unspecified Plan: Strep test was negative. Antibiotics ordered. Increase fluid intake. Tylenol for aches and pains. If symptoms worsen, follow-up here for a recheck. Orders: Orders SARS-CoV2/FLU/RSV Today R43.9 - Unspecified disturbances of smell and taste AMB Rapid Strep Screen Today Z13.9 - Encounter for screening, unspecified Medications: New azithromycin take 500 mg today (day 1), then 250 mg for 4 days (days 2-5) PO 6 tabs 0RF Coding Level of Care Code Est Pt Level 3 (31876) Diagnoses Acute pharyngitis, unspecified etiology J02.9 URI type: acute pharyngitis Pharyngitis/tonsillitis etiology: unspecified etiology
[2023-01-21 13:01] VITALS: BP 122/74; PULSE 65; TEMP 36.3; O2SAT 98; BMI 239.6
== END 2023-01-21 14:07 | disposition home or self-care (01) ==
PROVIDERS: PCP Nurse Practitioner Family; Visit Provider Internal Medicine
DX: J02.9 Acute pharyngitis, unspecified (principal)
CPT/HCPCS: 87880; 99213

== ENCOUNTER 2023-01-21 16:26 | Outpatient (REF) | payer BC, SELFPAY ==
[2023-01-21 18:01] LABS: Influenza A PCR NEGATIVE (Negative); Influenza B PCR NEGATIVE (Negative); Resp Syncy Virus RNA Qual PCR NEGATIVE (Negative); SARS COV2 PCR INHOUSE NEGATIVE (Negative)
== END 2023-01-21 16:27 | disposition home or self-care (01) ==
LOC: HO.LNP 16:26
PROVIDERS: Visit Provider Internal Medicine
DX: Z20.822 Contact with and (suspected) exposure to COVID-19 (principal); R43.9 Unspecified disturbances of smell and taste
CPT/HCPCS: 0241U

== ENCOUNTER 2023-01-23 06:27 | Outpatient (REF) | payer BC, SELFPAY ==
[2023-01-23 08:03] LABS: Estimated Average Glucose 108 mg/dL; Hemoglobin A1c % 5.4 % (<6.0)
[2023-01-23 08:33] LABS: Cholesterol 160 mg/dL (<200); HDL Cholesterol 67 mg/dL (>40); LDL Cholesterol Calculated 84 mg/dL (<100); Triglycerides 48 mg/dL (<150)
[2023-01-23 08:50] LABS: Insulin 6 uU/mL (2-29)
== END 2023-01-23 06:28 | disposition home or self-care (01) ==
LOC: HO.LAB 06:27
PROVIDERS: PCP Nurse Practitioner Family; Visit Provider Registered Nurse Emergency
DX: Z13.220 Encounter for screening for lipoid disorders (principal); Z13.1 Encounter for screening for diabetes mellitus; E66.09 Other obesity due to excess calories; E03.9 Hypothyroidism, unspecified
CPT/HCPCS: 36415; 80061; 83036; 83525

== ENCOUNTER 2023-02-19 13:33 | Outpatient (AMB) | payer BC, SELFPAY ==
[2023-02-19 13:35] VITALS: BP 110/72; PULSE 69; O2SAT 97; BMI 40.3
--- NOTE | 2023-02-19 13:35 | A.OFFPC_ITS ---
Vital Signs 02/19/23 13:35 Height 5 ft 1 in Weight 213 lb 0.8 oz BMI 40.3 BP 110/72 Blood Pressure Location Lt brachial Position Sitting Pulse 69 Pulse Source Pulse Oximeter Temp Source Skin Pulse Oximetry (%) 97 Oxygen Delivery Method Room Air Intake Visit Reasons: Annual Exam [place] Operator Required: No Allergies adhesive tape [ADHESIVE TAPE] Allergy (Intermediate, Verified 02/19/23 14:05) BLISTERS shellfish derived [SHELLFISH DERIVED] Allergy (Intermediate, Verified 02/19/23 14:05) HIVES silver [From TEGADERM AG MESH] Allergy (Intermediate, Verified 02/19/23 14:05) BLISTERS procaine [From Novocain] Allergy (Unknown, Verified 02/19/23 14:05) Unknown Medication List - Last Reconciled 02/19/23 by CHANTELLE Gonzalez albuterol sulfate 90 mcg/actuation (ProAir HFA) 2 puffs inhalation Q6H PRN 30 days ascorbic acid (vitamin C) 500 mg PO DAILY calcium carbonate (Calcium 500) 500 mg PO DAILY cholecalciferol (vitamin D3) 50 mcg PO DAILY epinephrine (EpiPen 2-Constantine) 0.3 mg (0.3 mL) IM Q4H PRN levothyroxine (Synthroid) 75 mcg PO DAILY loratadine 10 mg PO DAILY magnesium 250 mg PO BID omeprazole 20 mg PO DAILY 30 days phentermine 15 mg PO DAILY tizanidine (Zanaflex) 4 mg PO BID PRN 10 days vitamin A 20,000 units PO DAILY 90 days zinc acetate (Galzin) 50 mg PO DAILY Tobacco use date assessed: 02/19/23 Dental Screening Dental Screen Date: 02/19/23 Did you have a dental visit in the last 12 months?: No Did you have a dental problem in the last 6 months where you did not have access to dental care?: No HPI Annual Exam HPI Details Patient is a 52-year-old female presents today for physical exam. Patient of Dr. Florence. Medical history significant for obesity-on phentermine which is prescribed by weight management dietitian in [facility], asthma, hypothyroidism, anemia-followed by Dr. Wilkinson, history of gastric bypass, perimenopause, acid reflux. Patient has declined pneumonia vaccine. Pap smear normal 05/2020 with [facility]. Mammogram normal 08/2022. Colonoscopy negative 10/[address] Handley and repeat in 10 years. Up-to-date with eye exam. Denies shortness of breath or chest pain. [facility] Medical History Upper respiratory tract infection Hypothyroid Anemia Vitamin D deficiency Vitamin A deficiency Obesity (BMI 30-39.9) Asthma PCOS (polycystic ovarian syndrome) Surgical History History of esophagogastroduodenoscopy (EGD) Hx of colonoscopy Hx of gastric bypass Hx of tubal ligation LAP-BAND surgery status Family History Father CAD (coronary artery disease) Mother Thyroid cancer TIA (transient ischemic attack) Alcoholism Sister Thyroid cancer Maternal Aunt History of breast cancer Other Substance abuse Social History Household Members: Spouse Housing: House Alcohol intake: never Patient Tobacco Use Status: Never used Tobacco Second Hand Smoke Exposure: Yes service: No Current occupational status: employed 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 1. Little interest or pleasure in doing things: not at all 2. Feeling down, depressed, or hopeless: several days (sowmya-menopause ) 3. Trouble falling or staying asleep, or sleeping too much: not at all 4. Feeling tired or having little energy: not at all 5. Poor appetite or overeating: not at all 6. Feeling bad about yourself - or that you are a failure or have let yourself or your family down: not at all 7. Trouble concentrating on things, such as reading the newspaper or watching television: not at all 8. Moving or speaking so slowly that other people could have noticed. Or the opposite - being so fidgety or restless that you have been moving around a lot more than usual: not at all 9. Thoughts that you would be better off or of hurting yourself in some wa y: not at all Total score: 1 Depression Screening Interpretation: Negative Depression Screening Done: Yes 06559 - PHQ-9 Billing: Yes Source: Developed by Drs. Ramírez Zurita, Zaida Kapoor, Avila Sheikh and colleagues, with an educational luis from [employer]. Thrive Questionnaire Date Thrive assessed: 02/19/23 I am a: Patient What is your living situation today?: I have a steady place to live Within the past 12 months, did the food you bought not last and you didn't have the money to get more?: Never true Within the past 12 months, did you worry whether your food would run out before you got money to buy more?: Never true Do you have trouble paying for medicines?: No Do you have trouble getting transportation to medical appointments?: No Do you have trouble paying your heating and electricity bill?: No Do you have trouble taking care of your child, family member or friend?: No Do you have trouble with day-to-day activities such as bathing, preparing meals, shopping, managing finances, etc.?: No Are you currently unemployed and looking for a job?: No Are you interested in more education?: No Currently or been in a relationship where the following occur: no concerns reported AUDIT C Alcohol Use Questionnaire (AUDIT-C) 1. How often do you have a drink containing alcohol?: Never 3. How often do you have six or more drinks on one occasion?: Never Total Score: 0 Score Reviewed/Action Taken: No ELLE-7 AMB Questionnaire ELLE-7 Date ELLE - 7 assessed: 02/19/23 Feeling nervous, anxious, or on edge: 1 = Several days (sowmya-menopause ) Not being able to stop or control worryin = Not at all Worrying too much about different things: 0 = Not at all Trouble relaxin = Not at all Being so restless that it is hard to sit still: 0 = Not at all Becoming easily annoyed or irritable: 0 = Not at all Feeling afraid as if something awful might happen: 0 = Not at all Total ELLE-7 score (0-4 normal; 5-9 mild; 10-14 moderate; 15-21 severe): 1 Source: Developed by Zaida Durham Kurt Kroenke and colleagues, with an educational luis from [employer]. ELLE-7 Assessment Billing ELLE-7 Assessment Tool: ELLE-7 Assessment 18089 Review of Systems Const Denies body aches, Denies chills, Denies fever(s) and Denies headache(s) Eyes Denies change in vision ENT Denies dizziness, Denies otalgia, Denies headache(s), Denies nasal discharge, Denies sinus pain and Denies sore throat Card Denies chest pain, Denies edema, Denies lightheadedness and Denies dyspnea Resp Denies cough, Denies dyspnea and Denies wheezing GI Denies abdominal pain, Denies constipation, Denies diarrhea, Denies nausea and Denies vomiting Denies dysuria Musc Denies myalgias Skin/Breast Denies rash Neuro Denies dizziness and Denies headache(s) Aller/Immun Denies wheezing Physical exam (Primary Care) Vital Signs: Last Vital Signs Pulse 69 02/19/23 13:35 BP 110/72 02/19/23 13:35 Pulse Ox 97 02/19/23 13:35 Oxygen Delivery Method Room Air 02/19/23 13:35 BMI result Body Mass Index 40.3 Tobacco/Smoking Status: Tobacco use Status Tobacco use date assessed 02/19/23 02/19/23 13:36 Patient Tobacco Use Status Never used Tobacco 02/19/23 13:36 PHQ-9: PHQ-9 Score PHQ-9: Total score 1 02/19/23 14:08 Depression Screening Interpretation: Negative Thrive Assessment: Date of Thrive Assessment Date Thrive assessed 02/19/23 02/19/23 13:36 Currently or been in a relationship where the following occur: no concerns reported Const General: cooperative and no acute distress Orientation/consciousness: patient oriented x3 HENMT Head: Yes normocephalic and Yes atraumatic Ears: TM's normal bilaterally Face and sinus: Yes sinuses nontender Mouth: oropharynx normal and moist mucous membranes Throat: Yes posterior oropharynx normal Eyes General: appearance normal, both eyes and all related structures Pupils: Equal, round and reactive pupils present EOM: EOMs intact bilaterally Neck Neck: Yes normal visual inspection, Yes full ROM and Yes no lymphadenopathy Thyroid: Thyroid normal Resp Effort & Inspection: normal respiratory effort and able to speak in complete sentences Auscultation: clear to auscultation bilaterally, no crackles, no rales, no rhonchi and no wheezes Cardio Rate: regular rate Rhythm: regular rhythm Heart sounds: S1 normal heart sound present, S2 normal heart sound present and no murmurs GI Palpation (GI): Soft to palpation, not firm, nontender, no guarding, not rigid and no hepatosplenomegaly Auscultation: normal bowel sounds General: No CVA tenderness Back/Spine/Pelvis Back: No CVA tenderness Skin General skin exam: no rashes or lesions noted Neuro General: patient oriented x3 Cranial nerves: Yes Equal, round and reactive pupils present Gait exam (Neuro): Normal gait present Extrem General: Yes full ROM and No edema Assessment and Plan Assessment & Plan (1) Acid reflux: Code(s): K21.9 - Gastro-esophageal reflux disease without esophagitis Plan: Continue omeprazole Avoid GERD trigger foods Do not lay down 2-3 hours after evening meal (2) Annual physical exam: Code(s): Z00.00 - Encounter for general adult medical examination without abnormal findings Plan: Declined pneumonia vaccine (3) Iron deficiency anemia: Code(s): D50.9 - Iron deficiency anemia, unspecified Qualifiers: Iron deficiency anemia type: inadequate dietary iron intake Qualified Code(s): D50.8 - Other iron deficiency anemias Plan: Cbc ordered Continue to follow-up with Dr. Wilkinson (4) Hypothyroidism: Code(s): E03.9 - Hypothyroidism, unspecified Plan: Continue levothyroxine Thyroid blood work ordered (5) Asthma: Code(s): J45.909 - Unspecified asthma, uncomplicated Qualifiers: Asthma severity: mild Asthma persistence: intermittent Asthma complication type: uncomplicated Qualified Code(s): J45.20 - Mild intermittent asthma, uncomplicated Plan: Stable Continue albuterol inhaler p.r.n. (6) Morbid obesity with BMI of 40.0-44.9, adult: Code(s): E66.01 - Morbid (severe) obesity due to excess calories; Z68.41 - Body mass index [BMI] 40.0-44.9, adult Plan: On phentermine which is prescribed by weight management dietitian in [facility] Continue healthy food choices and exercise as tolerated Orders: Orders Vitamin D 25-OH Total Today J45.909 - Unspecified asthma, uncomplicated Vitamin B12 and Folate Today E03.9 - Hypothyroidism, unspecified Comprehensive [place]. Panel Fast Today E03.9 - Hypothyroidism, unspecified Complete Blood Count Auto Diff Today E03.9 - Hypothyroidism, unspecified TSH reflex Free T4 Today E03.9 - Hypothyroidism, unspecified Coding Level of Care Code Est Pt Prev Care 40-64y(52435) Diagnoses Acid reflux K21.9 Annual physical exam Z00.00 Iron deficiency anemia secondary to inadequate dietary iron intake D50.8 Iron deficiency anemia type: inadequate dietary iron intake Hypothyroidism E03.9 Mild intermittent asthma without complication J45.20 Asthma severity: mild Asthma persistence: intermittent Asthma complication type: uncomplicated Morbid obesity with BMI of 40.0-44.9, adult E66.01; Z68.41 Additional Codes ELLE-7 Assessment Billing - ELLE-7 Assessment Tool: ELLE-7 Assessment [id number] ([id number])
== END 2023-02-19 14:22 | disposition home or self-care (01) ==
PROVIDERS: Visit Provider Nurse Practitioner Family
DX: Z00.00 Encounter for general adult medical examination without abnormal findings (principal); K21.9 Gastro-esophageal reflux disease without esophagitis; E66.01 Morbid (severe) obesity due to excess calories; Z68.41 Body mass index [BMI] 40.0-44.9, adult; D50.8 Other iron deficiency anemias; E03.9 Hypothyroidism, unspecified; J45.20 Mild intermittent asthma, uncomplicated
CPT/HCPCS: 99396

== ENCOUNTER 2023-02-27 08:20 | Outpatient (REF) | payer BC, SELFPAY ==
[2023-02-27 08:31] LABS: MANUAL DIFF FLAG NO
[2023-02-27 09:07] LABS: Basophils Absolute Auto 0.1 X10*3/uL (0.0-0.2); Basophils Percent Auto 0.7 % (0-2); Eosinophils Absolute Auto 0.1 X10*3/uL (0.0-0.4); Eosinophils Percent Auto 0.8 % (0-4); Hematocrit 35.8 % (37.0-47.0); Hemoglobin 11.5 g/dl (12.0-16.0); Imm Gran Abs Auto 0.02 X10*3/uL (0.00-0.03); Imm Gran Pct Auto 0.3 % (0.0-0.4); Lymphocytes Absolute Auto 2.8 X10*3/uL (1.2-4.9); Lymphocytes Percent Auto 39.1 % (20-40); Mean Corpuscular HGB Conc 32.1 g/dl (31.0-35.0); Mean Corpuscular Hemoglobin 26.1 pg (27.0-33.0); Mean Corpuscular Volume 81.4 fL (80.0-98.0); Mean Platelet Volume 9.6 fL (9.4-12.3); Monocytes Absolute Auto 0.7 X10*3/uL (0.1-1.2); Monocytes Percent Auto 9.3 % (2-11); Neutrophils Absolute Auto 3.6 x10*3/uL (2.0-8.3); Neutrophils Percent Auto 49.8 % (45-73); Platelet Count 270 X10*3/uL (160-400); Red Cell Distribution Width 14.7 % (11.0-16.0); White Blood Count 7.2 X10*3/uL (4.8-10.8)
[2023-02-27 10:01] LABS: Alanine Aminotransferase 14 U/L (0-31); Albumin Level 3.7 g/dL (3.5-5.0); Alkaline Phosphatase 65 U/L (39-117); Anion Gap 12 (12-20); Aspartate Amino Transferase 18 U/L (5-31); Bilirubin Total 0.4 mg/dL (0.0-1.0); Blood Urea Nitrogen 12 mg/dL (9-16); Calcium 9.3 mg/dL (8.4-10.2); Carbon Dioxide 26 mmol/L (22-29); Chloride 109 mmol/L (96-108); Estimated Glomerular Filt Rate > 60; Glucose Fasting 96 mg/dL (60-99); Potassium 4.3 mmol/L (3.3-5.1); Sodium 143 mmol/L (135-145)
[2023-02-27 10:07] LABS: TSH reflex Free T4 2.79 uIU/mL (0.32-4.0); Vitamin D 25-OH Total 65.5 ng/mL (>30)
[2023-02-27 10:15] LABS: Vitamin B12 915 pg/mL (200-900)
== END 2023-02-27 08:21 | disposition home or self-care (01) ==
LOC: HO.LAB 08:20
PROVIDERS: PCP Nurse Practitioner Family; Visit Provider Nurse Practitioner Family
DX: E03.9 Hypothyroidism, unspecified (principal); J45.909 Unspecified asthma, uncomplicated; E55.9 Vitamin D deficiency, unspecified
CPT/HCPCS: 36415; 80053; 82306; 82607; 82746; 84443; 85025

== ENCOUNTER → 2023-08-28 13:00 | Outpatient (BNV) | payer BC, SELFPAY | PROVIDERS: PCP Internal Medicine; Visit Provider Radiology Diagnostic Radiology | DX: Z12.31 Encounter for screening mammogram for malignant neoplasm of breast (principal) | CPT/HCPCS: 77063; 77067 ==

== ENCOUNTER 2023-08-28 13:07 | Outpatient (REF) | payer BC, SELFPAY | END 2023-08-28 13:08 | disposition home or self-care (01) | LOC: HO.MAMMO 13:07 | PROVIDERS: PCP Internal Medicine; Visit Provider Nurse Practitioner Adult Health | DX: Z12.31 Encounter for screening mammogram for malignant neoplasm of breast (principal) | CPT/HCPCS: 77063; 77067 ==

== ENCOUNTER 2024-02-26 06:05 | Outpatient (REF) | payer BC, SELFPAY ==
[2024-02-26 06:44] LABS: MANUAL DIFF FLAG NO
[2024-02-26 07:53] LABS: Basophils Percent Auto 0.7 % (0-2); Eosinophils Absolute Auto 0.1 X10*3/uL (0.0-0.4); Eosinophils Percent Auto 1.2 % (0-4); Hematocrit 31.4 % (37.0-47.0); Hemoglobin 9.8 g/dl (12.0-16.0); Imm Gran Abs Auto 0.01 X10*3/uL (0.00-0.03); Imm Gran Pct Auto 0.2 % (0.0-0.4); Lymphocytes Absolute Auto 2.5 X10*3/uL (1.2-4.9); Lymphocytes Percent Auto 41.9 % (20-40); Mean Corpuscular HGB Conc 31.2 g/dl (31.0-35.0); Mean Corpuscular Volume 73.7 fL (80.0-98.0); Mean Platelet Volume 9.6 fL (9.4-12.3); Monocytes Absolute Auto 0.5 X10*3/uL (0.1-1.2); Monocytes Percent Auto 8.3 % (2-11); Neutrophils Absolute Auto 2.9 x10*3/uL (2.0-8.3); Neutrophils Percent Auto 47.7 % (45-73); Platelet Count 284 X10*3/uL (160-400); Red Blood Count 4.26 X10*6/uL (4.20-5.50); Red Cell Distribution Width 16.4 % (11.0-16.0)
[2024-02-26 07:57] LABS: Estimated Average Glucose 114 mg/dL; Hemoglobin A1C 95.8784 umol/L; Hemoglobin A1c % 5.6 % (<6.0); Total Hemoglobin (HGBA1C) 2554.5973 umol/L
[2024-02-26 08:29] LABS: Alanine Aminotransferase 17 U/L (0-31); Albumin Level 3.8 g/dL (3.5-5.0); Alkaline Phosphatase 70 U/L (39-117); Anion Gap 11 (12-20); Aspartate Amino Transferase 26 U/L (5-31); Bilirubin Total 0.3 mg/dL (0.0-1.0); Blood Urea Nitrogen 17 mg/dL (9-16); Calcium 9.6 mg/dL (8.4-10.2); Carbon Dioxide 29 mmol/L (22-29); Chloride 106 mmol/L (96-108); Cholesterol 167 mg/dL (<200); Estimated Glomerular Filt Rate > 60; Glucose Random 91 mg/dL (60-115); HDL Cholesterol 59 mg/dL (>40); LDL Cholesterol Calculated 98 mg/dL (<100); Potassium 3.9 mmol/L (3.3-5.1); Sodium 142 mmol/L (135-145); Triglycerides 53 mg/dL (<150)
[2024-02-26 08:33] LABS: Insulin 6 uU/mL (2-29); Thyroid Stimulating Hormone 4.38 uIU/mL (0.32-4.0); Vitamin D 25-OH Total 103.9 ng/mL (>30)
[2024-02-26 08:44] LABS: Vitamin B12 735 pg/mL (200-900)
== END 2024-02-26 06:06 | disposition home or self-care (01) ==
LOC: HO.LAB 06:05
PROVIDERS: PCP Internal Medicine; Visit Provider Physician Assistant
DX: Z90.3 Acquired absence of stomach [part of] (principal); D64.9 Anemia, unspecified; E78.5 Hyperlipidemia, unspecified; Z13.1 Encounter for screening for diabetes mellitus; E55.9 Vitamin D deficiency, unspecified; E03.9 Hypothyroidism, unspecified
CPT/HCPCS: 36415; 80053; 80061; 82306; 82607; 83036; 83525; 84443; 85025

== ENCOUNTER 2024-03-04 10:40 | Outpatient (AMB) | payer BC, SELFPAY ==
--- NOTE | 2024-03-04 11:11 | MHC.OFFWIV ---
Intake Vital Signs 03/04/24 11:12 Weight 215 lb BP 122/80 Blood Pressure Location Lt brachial Position Sitting Pulse 66 Pulse Source Pulse Oximeter Temp 98.1 F Temp Source Oral Pulse Oximetry (%) 99 Oxygen Delivery Method Room Air Intake Visit Reasons: EP-sore throat, chest pain, sob Intake Note: Patient here for chest pain, SOB which started Thursday. She states she was recently around her niece that has pneumonia and whooping cough Patient Tobacco Use Status: Never used Tobacco Allergies adhesive tape [ADHESIVE TAPE] Allergy (Intermediate, Verified 03/04/24 11:13) BLISTERS shellfish derived [SHELLFISH DERIVED] Allergy (Intermediate, Verified 03/04/24 11:13) HIVES silver [From TEGADERM AG MESH] Allergy (Intermediate, Verified 03/04/24 11:13) BLISTERS procaine [From Novocain] Allergy (Unknown, Verified 03/04/24 11:13) Unknown Do you need a note to return to daycare/school/sports/work: No HPI HPI Comments History of Present Illness Details This is a 53-year-old female who presented to the walk-in clinic complaining of URI symptoms including nasal/sinus congestion, rhinorrhea, sore throat, and a dry cough. Patient does report some chest pressure and shortness of breath that occurs only with the cough. She denies any sputum production or purulence. She reports subjective fevers with chills and myalgias/arthralgias; however, she has not had a measured fever. She also reports bilateral otalgia. She reports positive sick contact with her niece who was diagnosed with pneumonia and whooping cough. [facility] Medical History Upper respiratory tract infection Hypothyroid Anemia Vitamin D deficiency Vitamin A deficiency Obesity (BMI 30-39.9) Asthma PCOS (polycystic ovarian syndrome) Surgical History History of esophagogastroduodenoscopy (EGD) Hx of colonoscopy Hx of gastric bypass Hx of tubal ligation LAP-BAND surgery status Family History Father CAD (coronary artery disease) Mother Thyroid cancer TIA (transient ischemic attack) Alcoholism Sister Thyroid cancer Maternal Aunt History of breast cancer Other Substance abuse Social History Household Members: Spouse Housing: House Alcohol intake: never Patient Tobacco Use Status: Never used Tobacco Second Hand Smoke Exposure: Yes service: No Current occupational status: employed 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 Sexual orientation: Straight/Heterosexual Cognitive needs: No Hearing needs: No Vision needs: Yes Female Reproductive History Menstrual Age of Menarche: 9 Review of Systems Const All systems reviewed & are unremarkable except as noted in HPI and below Reports no additional complaints Eyes Reports no additional complaints ENT Reports no additional complaints Card Reports no additional complaints Resp Reports no additional complaints GI Reports no additional complaints Reports no additional complaints Musc Reports no additional complaints Skin/Breast Reports system reviewed and no additional complaints, except as documented Neuro Reports no additional complaints Psych Reports no additional complaints Endo Reports no additional complaints Tobi/Lymph Reports no additional complaints Aller/Immun Reports no additional complaints Physical Exam Vital Signs: Last Vital Signs Temp 98.1 F 03/04/24 11:12 Pulse 66 03/04/24 11:12 BP 122/80 03/04/24 11:12 Pulse Ox 99 03/04/24 11:12 Oxygen Delivery Method Room Air 03/04/24 11:12 Const Other: Vital signs reviewed. Constitutional: Non-toxic appearing. No acute distress. Well-developed and well-nourished. HEENT: Normocephalic and atraumatic. There is some fluid behind bilateral tympanic membranes but tympanic membranes without erythema, edema, or bulging bilaterally. External auditory canals without erythema or edema bilaterally. Moist mucous membranes. Mild posterior pharyngeal erythema without exudates or edema. Skin: Warm and dry. No rashes or lesions noted. Neck: Full and painless range of motion. No cervical lymphadenopathy. Cardio: Regular rate and rhythm. No murmurs, gallops, or rubs. No lower extremity edema. No JVD. Pulmonary: No respiratory distress. No accessory muscle usage. Clear to auscultation bilaterally without wheezing, crackles, or rhonchi. Gastrointestinal: Soft, nontender, and nondistended in all 4 quadrants. Normoactive bowel sounds in all 4 quadrants. Musculoskeletal: Normal range of motion in joints throughout the body. No deformity or other signs of injury. Neuro: Alert and oriented x4. Cranial nerves 2-12 grossly intact. No focal deficits appreciated. Psych: Normal mood and affect. Assessment & Plan Assessment & Plan (1) Acute upper respiratory infection, unspecified: Code(s): J06.9 - Acute upper respiratory infection, unspecified Plan: This is a 53-year-old female who presented to the walk-in clinic complaining of URI symptoms including nasal/sinus congestion, rhinorrhea, sore throat, and a dry cough. Patient has positive sick contact with her niece who was diagnosed with pneumonia and whooping cough. Patient underwent a chest x-ray at the walk-in clinic, which showed mild haziness and blunting of the left lower lobe concerning for pneumonia. Recommended symptomatic management including rest, increased fluids, advil/tylenol for pain/fever, and over the counter throat lozenges/decongestants. Patient given a prescription for p.o. azithromycin 500 mg today followed by 250 mg daily x4 days. Patient advised to follow up here or go to the emergency room for worsening/persistent symptoms. Patient verbalized understanding and is agreeable with the plan. Orders: Orders SARS-CoV2/FLU/RSV Today J06.9 - Acute upper respiratory infection, unspecified XR chest 2V Today R05.9 - Cough, unspecified Medications: New azithromycin For 250 mg dose pack: take 500 mg today (day 1), then 250 mg for 4 days (days 2-5) PO 6 tabs 0RF Coding Level of Care Code Est Pt Level 3 (98895) Diagnoses Acute upper respiratory infection, unspecified J06.9
[2024-03-04 11:12] VITALS: BP 122/80; PULSE 66; TEMP 36.7; O2SAT 99
== END 2024-03-04 13:25 | disposition home or self-care (01) ==
PROVIDERS: PCP Internal Medicine; Visit Provider Physician Assistant Medical
DX: J06.9 Acute upper respiratory infection, unspecified (principal)

== ENCOUNTER 2024-03-04 10:40 | Outpatient (REF) | payer BC, SELFPAY ==
[2024-03-04 14:39] LABS: Influenza A PCR NEGATIVE (Negative); Influenza B PCR NEGATIVE (Negative); Resp Syncy Virus RNA Qual PCR NEGATIVE (Negative); SARS COV2 PCR INHOUSE NEGATIVE (Negative)
== END 2024-03-04 10:41 | disposition home or self-care (01) ==
LOC: HO.HMGCX 10:40
PROVIDERS: PCP Internal Medicine; Visit Provider Physician Assistant Medical
DX: R05.9 Cough, unspecified (principal); J06.9 Acute upper respiratory infection, unspecified
CPT/HCPCS: 0241U; 71046

== ENCOUNTER 2024-03-29 06:02 | Outpatient (REF) | payer BC, SELFPAY ==
[2024-03-29 07:49] LABS: Iron 24 mcg/dL (30-160); Percent Iron Saturation 6 % (15-50); Total Iron Binding Capacity 385 mcg/dL (228-428); Unsaturated Iron Binding 361 ug/dL
[2024-03-29 08:09] LABS: Ferritin 7 ng/mL (10-250); Free T4 (Free Thyroxine) 1.33 ng/dL (0.71-1.85); Thyroid Stimulating Hormone 3.76 uIU/mL (0.32-4.0)
[2024-03-31 02:48] LABS: Triiodothyronine T3 Free 2.7 pg/mL (2.3-4.2)
== END 2024-03-29 06:03 | disposition home or self-care (01) ==
LOC: HO.LAB 06:02
PROVIDERS: PCP Physician Assistant; Visit Provider Physician Assistant
DX: E03.9 Hypothyroidism, unspecified (principal); D64.9 Anemia, unspecified
CPT/HCPCS: 36415; 82728; 83540; 84439; 84443; 84481

== ENCOUNTER 2024-05-10 06:03 | Outpatient (REF) | payer BC, SELFPAY ==
--- OUTSIDE RECORDS SUMMARY | 2024-05-10 06:06 | XMS_ITS ---
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 SECA done. Previous weight was 209. Today the patient weight is 216. Pt states she is doing well. MEDICATIONS Medication SIG (Take, Route, Frequency, Duration) Notes Start Date End Date Status Vitamin C 500 MG as directed Orally Active Probiotic 250 MG as directed Orally Active Calcium 500 MG 1 tablet with meals Orally Twice a day Active Vitamin A 2400 MCG (8000 UT) as directed Orally Active Contrave 8-90 MG 2 tablets Orally twi ce a day for 30 days 04/21/2024 Active Magnesium 200 MG 2 tablets with a filiberto l Orally Once a day Active Zinc 100 MG 1 tablet Orally Once a day Active VITAL SIGNS Heart Rate 68 /min 04/21/2024 Blood pressure systolic 138 mm Hg 04/21/20 24 Blood pressure diastolic 82 mm Hg 024 Weight 216.4 lbs 04/21/2024 BMI 39.9 kg/m2 04/21/2024 Height 61.75 in 04/21/2024 Oximetry 99 % 04/21/2024 Encounters Encounter Location Date Provider Diagnosis [id number] [id number] 04/21/2024 Marissa Bear Morbid obesity E66.0 1 ; BMI 40.0-44.9, adult Z68.41 ; Anemia, unspecified type D64.9 ; Hypothyroidism, unspecified type E03.9 ; S/P gastric sleeve procedure Z90.3 and Weight loss counseling, encounter for Z71.3 ASSESSMENTS Encounter Date Diagnosis Assessment Notes Treatment Notes Treatment Clinical Notes Section Notes 04/21/2024 Morbid obesity (ICD-10 - E66.01) #Morbid obesity. 04/21/24: 216.4 pounds, BMI 40.1. Unfortunately she has continued to gain weight. Her insurance does not cover Zepbound or Wegovy. She has tried phentermine in the past however did not tolerate it secondary to palpitations. Discussed weight management options in detail. Unfortunately compounded semaglutide is cost restrictive for her at this time. Will start Contrave. Reviewed risk benefits adverse effects of medication patient discussed proper use and tapering schedule given to her with handwritten instructions. Discussed importance of dietary modifications including increased protein intake of 80 to 100 g a day. Continue to work on hydration and regular exercise including resistance training. 03/24/24: 214.1 pounds, BMI 39.6. She is most interested in Zepbound. Reviewed risk benefits adverse effects of medication in detail with patient. Reviewed proper use and demonstrated pen autoinjector. Will submit to pharmacy discussed PA process. If Zepbound is denied would consider Wegovy. She has previously tried phentermine however had side effects of palpitations and did not tolerate. She is reluctant to take Contrave. She is struggling to manage her weight without medication at this time. Discussed importance of protein intake, hydration and regular exercise. Follow-up in 1 month sooner with any concerns. 02/25/24: 209 pounds, BMI 38.7. She is interested in considering weight management medications. She has tried phentermine in the past however had palpitations as a side effect and did not tolerate. She is reluctant to take Contrave. She is most interested in Zepbound or compounded tirzepatide. Reviewed with patient it is unclear as of today if compounded tirzepatide will continue to be available. She would like to hold off on starting medication today. She plans to contact her insurance company in regards to coverage for Wegovy or Zepbound. Will get updated labs and follow-up in 1 month. Discussed importance of protein intake, hydration and consistent exercise. Follow-up sooner with any concerns. #Anemia. History of iron deficiency anemia. Labs reviewed. Advised to restart her iron supplement. Recheck labs in 6-8 weeks. If no improvement, consider referral as she has previously done iron infusions in the past. #Hypothyroidism. She did not tolerate levothyroxine. TSH in range on repeat labs. Will monitor. #S/p Gastric sleeve procedure. She has had some weight regain since. She did recently have a panniculectomy. Start Contrave as above. The patient will continue exercise regimen with an emphasis on improving/increasing steps to at least 6,000-10,000 steps per day. Increasing cardio and strength training exercises as tolerated to improve weight loss and work on building muscle mass. Patient is committed to smarter eating with calorie counting and mindful eating. Limiting processed foods and carbohydrates and increasing leafy greens and lean proteins as well as fruits into their diet. Patient was counseled on the importance of eating local, organic food when possible. Patient has been counseled regarding effects of GLP/GIP-1 agonists and other FDA approved weight loss medications with regards to a multifactorial approach of weight loss as mentioned above and that the medication alone will not be sufficient to meet patients goals. We discussed holistic medication approach with emphasis on lifestyle modification. Discussed obesity as it increases risk of diabetes, cardiovascular disease, and/or organ damage. We spent a lot of time discussing the relationship between food, exercise, sleep, mental health, and obesity. We discussed the importance of having SECAs done every visit and having accountability done during these visits. That the scale is done to monitor not only weight loss but the body composition during medication management and healthy lifestyle changes. We discussed that if the patient is unable at times to financially afford this scale that we would rather waive the fee and have the scale done than have the patient not have the scale obtained. Will follow up with the patient in 4 weeks time to monitor weight loss. Total time was 30 min, greater than 50 % of time was spent on care coordination Case discussed with collaborating physician Rik Mayorga who reviewed the assessment and plan. Chart, medications, labs, vital signs reviewed. Dictation was accomplished with the use of [employer] voice recognition software, prone to medical misidentifications and grammatical errors. This is unintentional and the practitioner does try to identify and correct these, but some could still be present. Please do not hesitate to contact practitioner for clarification. All questions answered to patients satisfaction. Patient verbalized understanding of diagnosis and treatments explained. To call sooner prior to next visit it any questions/concerns arise. 04/21/2024 BMI 40.0-44.9, adult (ICD-10 - Z68.41) #Morbid obesity. 04/21/24: 216.4 pounds, BMI 40.1. Unfortunately she has continued to gain weight. Her insurance does not cover Zepbound or Wegovy. She has tried phentermine in the past however did not tolerate it secondary to palpitations. Discussed weight management options in detail. Unfortunately compounded semaglutide is cost restrictive for her at this time. Will start Contrave. Reviewed risk benefits adverse effects of medication patient discussed proper use and tapering schedule given to her with handwritten instructions. Discussed importance of dietary modifications including increased protein intake of 80 to 100 g a day. Continue to work on hydration and regular exercise including resistance training. 03/24/24: 214.1 pounds, BMI 39.6. She is most interested in Zepbound. Reviewed risk benefits adverse effects of medication in detail with patient. Reviewed proper use and demonstrated pen autoinjector. Will submit to pharmacy discussed PA process. If Zepbound is denied would consider Wegovy. She has previously tried phentermine however had side effects of palpitations and did not tolerate. She is reluctant to take Contrave. She is struggling to manage her weight without medication at this time. Discussed importance of protein intake, hydration and regular exercise. Follow-up in 1 month sooner with any concerns. 02/25/24: 209 pounds, BMI 38.7. She is interested in considering weight management medications. She has tried phentermine in the past however had palpitations as a side effect and did not tolerate. She is reluctant to take Contrave. She is most interested in Zepbound or compounded tirzepatide. Reviewed with patient it is unclear as of today if compounded tirzepatide will continue to be available. She would like to hold off on starting medication today. She plans to contact her insurance company in regards to coverage for Wegovy or Zepbound. Will get updated labs and follow-up in 1 month. Discussed importance of protein intake, hydration and consistent exercise. Follow-up sooner with any concerns. #Anemia. History of iron deficiency anemia. Labs reviewed. Advised to restart her iron supplement. Recheck labs in 6-8 weeks. If no improvement, consider referral as she has previously done iron infusions in the past. #Hypothyroidism. She did not tolerate levothyroxine. TSH in range on repeat labs. Will monitor. #S/p Gastric sleeve procedure. She has had some weight regain since. She did recently have a panniculectomy. Start Contrave as above. The patient will continue exercise regimen with an emphasis on improving/increasing steps to at least 6,000-10,000 steps per day. Increasing cardio and strength training exercises as tolerated to improve weight loss and work on building muscle mass. Patient is committed to smarter eating with calorie counting and mindful eating. Limiting processed foods and carbohydrates and increasing leafy greens and lean proteins as well as fruits into their diet. Patient was counseled on the importance of eating local, organic food when possible. Patient has been counseled regarding effects of GLP/GIP-1 agonists and other FDA approved weight loss medications with regards to a multifactorial approach of weight loss as mentioned above and that the medication alone will not be sufficient to meet patients goals. We discussed holistic medication approach with emphasis on lifestyle modification. Discussed obesity as it increases risk of diabetes, cardiovascular disease, and/or organ damage. We spent a lot of time discussing the relationship between food, exercise, sleep, mental health, and obesity. We discussed the importance of having SECAs done every visit and having accountability done during these visits. That the scale is done to monitor not only weight loss but the body composition during medication management and healthy lifestyle changes. We discussed that if the patient is unable at times to financially afford this scale that we would rather waive the fee and have the scale done than have the patient not have the scale obtained. Will follow up with the patient in 4 weeks time to monitor weight loss. Total time was 30 min, greater than 50 % of time was spent on care coordination Case discussed with collaborating physician Rik Mayorga who reviewed the assessment and plan. Chart, medications, labs, vital signs reviewed. Dictation was accomplished with the use of [employer] voice recognition software, prone to medical misidentifications and grammatical errors. This is unintentional and the practitioner does try to identify and correct these, but some could still be present. Please do not hesitate to contact practitioner for clarification. All questions answered to patients satisfaction. Patient verbalized understanding of diagnosis and treatments explained. To call sooner prior to next visit it any questions/concerns arise. 04/21/2024 Anemia, unspecified type (ICD-10 - D64.9) #Morbid obesity. 04/21/24: 216.4 pounds, BMI 40.1. Unfortunately she has continued to gain weight. Her insurance does not cover Zepbound or Wegovy. She has tried phentermine in the past however did not tolerate it secondary to palpitations. Discussed weight management options in detail. Unfortunately compounded semaglutide is cost restrictive for her at this time. Will start Contrave. Reviewed risk benefits adverse effects of medication patient discussed proper use and tapering schedule given to her with handwritten instructions. Discussed importance of dietary modifications including increased protein intake of 80 to 100 g a day. Continue to work on hydration and regular exercise including resistance training. 03/24/24: 214.1 pounds, BMI 39.6. She is most interested in Zepbound. Reviewed risk benefits adverse effects of medication in detail with patient. Reviewed proper use and demonstrated pen autoinjector. Will submit to pharmacy discussed PA process. If Zepbound is denied would consider Wegovy. She has previously tried phentermine however had side effects of palpitations and did not tolerate. She is reluctant to take Contrave. She is struggling to manage her weight without medication at this time. Discussed importance of protein intake, hydration and regular exercise. Follow-up in 1 month sooner with any concerns. 02/25/24: 209 pounds, BMI 38.7. She is interested in considering weight management medications. She has tried phentermine in the past however had palpitations as a side effect and did not tolerate. She is reluctant to take Contrave. She is most interested in Zepbound or compounded tirzepatide. Reviewed with patient it is unclear as of today if compounded tirzepatide will continue to be available. She would like to hold off on starting medication today. She plans to contact her insurance company in regards to coverage for Wegovy or Zepbound. Will get updated labs and follow-up in 1 month. Discussed importance of protein intake, hydration and consistent exercise. Follow-up sooner with any concerns. #Anemia. History of iron deficiency anemia. Labs reviewed. Advised to restart her iron supplement. Recheck labs in 6-8 weeks. If no improvement, consider referral as she has previously done iron infusions in the past. #Hypothyroidism. She did not tolerate levothyroxine. TSH in range on repeat labs. Will monitor. #S/p Gastric sleeve procedure. She has had some weight regain since. She did recently have a panniculectomy. Start Contrave as above. The patient will continue exercise regimen with an emphasis on improving/increasing steps to at least 6,000-10,000 steps per day. Increasing cardio and strength training exercises as tolerated to improve weight loss and work on building muscle mass. Patient is committed to smarter eating with calorie counting and mindful eating. Limiting processed foods and carbohydrates and increasing leafy greens and lean proteins as well as fruits into their diet. Patient was counseled on the importance of eating local, organic food when possible. Patient has been counseled regarding effects of GLP/GIP-1 agonists and other FDA approved weight loss medications with regards to a multifactorial approach of weight loss as mentioned above and that the medication alone will not be sufficient to meet patients goals. We discussed holistic medication approach with emphasis on lifestyle modification. Discussed obesity as it increases risk of diabetes, cardiovascular disease, and/or organ damage. We spent a lot of time discussing the relationship between food, exercise, sleep, mental health, and obesity. We discussed the importance of having SECAs done every visit and having accountability done during these visits. That the scale is done to monitor not only weight loss but the body composition during medication management and healthy lifestyle changes. We discussed that if the patient is unable at times to financially afford this scale that we would rather waive the fee and have the scale done than have the patient not have the scale obtained. Will follow up with the patient in 4 weeks time to monitor weight loss. Total time was 30 min, greater than 50 % of time was spent on care coordination Case discussed with collaborating physician Rik Mayorga who reviewed the assessment and plan. Chart, medications, labs, vital signs reviewed. Dictation was accomplished with the use of [employer] voice recognition software, prone to medical misidentifications and grammatical errors. This is unintentional and the practitioner does try to identify and correct these, but some could still be present. Please do not hesitate to contact practitioner for clarification. All questions answered to patients satisfaction. Patient verbalized understanding of diagnosis and treatments explained. To call sooner prior to next visit it any questions/concerns arise. 04/21/2024 Hypothyroidism , unspecified type (ICD-10 - E03.9) #Morbid obesity. 04/21/24: 216.4 pounds, BMI 40.1. Unfortunately she has continued to gain weight. Her insurance does not cover Zepbound or Wegovy. She has tried phentermine in the past however did not tolerate it secondary to palpitations. Discussed weight management options in detail. Unfortunately compounded semaglutide is cost restrictive for her at this time. Will start Contrave. Reviewed risk benefits adverse effects of medication patient discussed proper use and tapering schedule given to her with handwritten instructions. Discussed importance of dietary modifications including increased protein intake of 80 to 100 g a day. Continue to work on hydration and regular exercise including resistance training. 03/24/24: 214.1 pounds, BMI 39.6. She is most interested in Zepbound. Reviewed risk benefits adverse effects of medication in detail with patient. Reviewed proper use and demonstrated pen autoinjector. Will submit to pharmacy discussed PA process. If Zepbound is denied would consider Wegovy. She has previously tried phentermine however had side effects of palpitations and did not tolerate. She is reluctant to take Contrave. She is struggling to manage her weight without medication at this time. Discussed importance of protein intake, hydration and regular exercise. Follow-up in 1 month sooner with any concerns. 02/25/24: 209 pounds, BMI 38.7. She is interested in considering weight management medications. She has tried phentermine in the past however had palpitations as a side effect and did not tolerate. She is reluctant to take Contrave. She is most interested in Zepbound or compounded tirzepatide. Reviewed with patient it is unclear as of today if compounded tirzepatide will continue to be available. She would like to hold off on starting medication today. She plans to contact her insurance company in regards to coverage for Wegovy or Zepbound. Will get updated labs and follow-up in 1 month. Discussed importance of protein intake, hydration and consistent exercise. Follow-up sooner with any concerns. #Anemia. History of iron deficiency anemia. Labs reviewed. Advised to restart her iron supplement. Recheck labs in 6-8 weeks. If no improvement, consider referral as she has previously done iron infusions in the past. #Hypothyroidism. She did not tolerate levothyroxine. TSH in range on repeat labs. Will monitor. #S/p Gastric sleeve procedure. She has had some weight regain since. She did recently have a panniculectomy. Start Contrave as above. The patient will continue exercise regimen with an emphasis on improving/increasing steps to at least 6,000-10,000 steps per day. Increasing cardio and strength training exercises as tolerated to improve weight loss and work on building muscle mass. Patient is committed to smarter eating with calorie counting and mindful eating. Limiting processed foods and carbohydrates and increasing leafy greens and lean proteins as well as fruits into their diet. Patient was counseled on the importance of eating local, organic food when possible. Patient has been counseled regarding effects of GLP/GIP-1 agonists and other FDA approved weight loss medications with regards to a multifactorial approach of weight loss as mentioned above and that the medication alone will not be sufficient to meet patients goals. We discussed holistic medication approach with emphasis on lifestyle modification. Discussed obesity as it increases risk of diabetes, cardiovascular disease, and/or organ damage. We spent a lot of time discussing the relationship between food, exercise, sleep, mental health, and obesity. We discussed the importance of having SECAs done every visit and having accountability done during these visits. That the scale is done to monitor not only weight loss but the body composition during medication management and healthy lifestyle changes. We discussed that if the patient is unable at times to financially afford this scale that we would rather waive the fee and have the scale done than have the patient not have the scale obtained. Will follow up with the patient in 4 weeks time to monitor weight loss. Total time was 30 min, greater than 50 % of time was spent on care coordination Case discussed with collaborating physician Rik Mayorga who reviewed the assessment and plan. Chart, medications, labs, vital signs reviewed. Dictation was accomplished with the use of [employer] voice recognition software, prone to medical misidentifications and grammatical errors. This is unintentional and the practitioner does try to identify and correct these, but some could still be present. Please do not hesitate to contact practitioner for clarification. All questions answered to patients satisfaction. Patient verbalized understanding of diagnosis and treatments explained. To call sooner prior to next visit it any questions/concerns arise. 04/21/2024 S/P gastric sleeve procedure (ICD-10 - Z90.3) #Morbid obesity. 04/21/24: 216.4 pounds, BMI 40.1. Unfortunately she has continued to gain weight. Her insurance does not cover Zepbound or Wegovy. She has tried phentermine in the past however did not tolerate it secondary to palpitations. Discussed weight management options in detail. Unfortunately compounded semaglutide is cost restrictive for her at this time. Will start Contrave. Reviewed risk benefits adverse effects of medication patient discussed proper use and tapering schedule given to her with handwritten instructions. Discussed importance of dietary modifications including increased protein intake of 80 to 100 g a day. Continue to work on hydration and regular exercise including resistance training. 03/24/24: 214.1 pounds, BMI 39.6. She is most interested in Zepbound. Reviewed risk benefits adverse effects of medication in detail with patient. Reviewed proper use and demonstrated pen autoinjector. Will submit to pharmacy discussed PA process. If Zepbound is denied would consider Wegovy. She has previously tried phentermine however had side effects of palpitations and did not tolerate. She is reluctant to take Contrave. She is struggling to manage her weight without medication at this time. Discussed importance of protein intake, hydration and regular exercise. Follow-up in 1 month sooner with any concerns. 02/25/24: 209 pounds, BMI 38.7. She is interested in considering weight management medications. She has tried phentermine in the past however had palpitations as a side effect and did not tolerate. She is reluctant to take Contrave. She is most interested in Zepbound or compounded tirzepatide. Reviewed with patient it is unclear as of today if compounded tirzepatide will continue to be available. She would like to hold off on starting medication today. She plans to contact her insurance company in regards to coverage for Wegovy or Zepbound. Will get updated labs and follow-up in 1 month. Discussed importance of protein intake, hydration and consistent exercise. Follow-up sooner with any concerns. #Anemia. History of iron deficiency anemia. Labs reviewed. Advised to restart her iron supplement. Recheck labs in 6-8 weeks. If no improvement, consider referral as she has previously done iron infusions in the past. #Hypothyroidism. She did not tolerate levothyroxine. TSH in range on repeat labs. Will monitor. #S/p Gastric sleeve procedure. She has had some weight regain since. She did recently have a panniculectomy. Start Contrave as above. The patient will continue exercise regimen with an emphasis on improving/increasing steps to at least 6,000-10,000 steps per day. Increasing cardio and strength training exercises as tolerated to improve weight loss and work on building muscle mass. Patient is committed to smarter eating with calorie counting and mindful eating. Limiting processed foods and carbohydrates and increasing leafy greens and lean proteins as well as fruits into their diet. Patient was counseled on the importance of eating local, organic food when possible. Patient has been counseled regarding effects of GLP/GIP-1 agonists and other FDA approved weight loss medications with regards to a multifactorial approach of weight loss as mentioned above and that the medication alone will not be sufficient to meet patients goals. We discussed holistic medication approach with emphasis on lifestyle modification. Discussed obesity as it increases risk of diabetes, cardiovascular disease, and/or organ damage. We spent a lot of time discussing the relationship between food, exercise, sleep, mental health, and obesity. We discussed the importance of having SECAs done every visit and having accountability done during these visits. That the scale is done to monitor not only weight loss but the body composition during medication management and healthy lifestyle changes. We discussed that if the patient is unable at times to financially afford this scale that we would rather waive the fee and have the scale done than have the patient not have the scale obtained. Will follow up with the patient in 4 weeks time to monitor weight loss. Total time was 30 min, greater than 50 % of time was spent on care coordination Case discussed with collaborating physician Rik Mayorga who reviewed the assessment and plan. Chart, medications, labs, vital signs reviewed. Dictation was accomplished with the use of [employer] voice recognition software, prone to medical misidentifications and grammatical errors. This is unintentional and the practitioner does try to identify and correct these, but some could still be present. Please do not hesitate to contact practitioner for clarification. All questions answered to patients satisfaction. Patient verbalized understanding of diagnosis and treatments explained. To call sooner prior to next visit it any questions/concerns arise. 04/21/2024 Weight loss counseling, encounter for (ICD-10 - Z71.3) #Morbid obesity. 04/21/24: 216.4 pounds, BMI 40.1. Unfortunately she has continued to gain weight. Her insurance does not cover Zepbound or Wegovy. She has tried phentermine in the past however did not tolerate it secondary to palpitations. Discussed weight management options in detail. Unfortunately compounded semaglutide is cost restrictive for her at this time. Will start Contrave. Reviewed risk benefits adverse effects of medication patient discussed proper use and tapering schedule given to her with handwritten instructions. Discussed importance of dietary modifications including increased protein intake of 80 to 100 g a day. Continue to work on hydration and regular exercise including resistance training. 03/24/24: 214.1 pounds, BMI 39.6. She is most interested in Zepbound. Reviewed risk benefits adverse effects of medication in detail with patient. Reviewed proper use and demonstrated pen autoinjector. Will submit to pharmacy discussed PA process. If Zepbound is denied would consider Wegovy. She has previously tried phentermine however had side effects of palpitations and did not tolerate. She is reluctant to take Contrave. She is struggling to manage her weight without medication at this time. Discussed importance of protein intake, hydration and regular exercise. Follow-up in 1 month sooner with any concerns. 02/25/24: 209 pounds, BMI 38.7. She is interested in considering weight management medications. She has tried phentermine in the past however had palpitations as a side effect and did not tolerate. She is reluctant to take Contrave. She is most interested in Zepbound or compounded tirzepatide. Reviewed with patient it is unclear as of today if compounded tirzepatide will continue to be available. She would like to hold off on starting medication today. She plans to contact her insurance company in regards to coverage for Wegovy or Zepbound. Will get updated labs and follow-up in 1 month. Discussed importance of protein intake, hydration and consistent exercise. Follow-up sooner with any concerns. #Anemia. History of iron deficiency anemia. Labs reviewed. Advised to restart her iron supplement. Recheck labs in 6-8 weeks. If no improvement, consider referral as she has previously done iron infusions in the past. #Hypothyroidism. She did not tolerate levothyroxine. TSH in range on repeat labs. Will monitor. #S/p Gastric sleeve procedure. She has had some weight regain since. She did recently have a panniculectomy. Start Contrave as above. The patient will continue exercise regimen with an emphasis on improving/increasing steps to at least 6,000-10,000 steps per day. Increasing cardio and strength training exercises as tolerated to improve weight loss and work on building muscle mass. Patient is committed to smarter eating with calorie counting and mindful eating. Limiting processed foods and carbohydrates and increasing leafy greens and lean proteins as well as fruits into their diet. Patient was counseled on the importance of eating local, organic food when possible. Patient has been counseled regarding effects of GLP/GIP-1 agonists and other FDA approved weight loss medications with regards to a multifactorial approach of weight loss as mentioned above and that the medication alone will not be sufficient to meet patients goals. We discussed holistic medication approach with emphasis on lifestyle modification. Discussed obesity as it increases risk of diabetes, cardiovascular disease, and/or organ damage. We spent a lot of time discussing the relationship between food, exercise, sleep, mental health, and obesity. We discussed the importance of having SECAs done every visit and having accountability done during these visits. That the scale is done to monitor not only weight loss but the body composition during medication management and healthy lifestyle changes. We discussed that if the patient is unable at times to financially afford this scale that we would rather waive the fee and have the scale done than have the patient not have the scale obtained. Will follow up with the patient in 4 weeks time to monitor weight loss. Total time was 30 min, greater than 50 % of time was spent on care coordination Case discussed with collaborating physician Rik Mayorga who reviewed the assessment and plan. Chart, medications, labs, vital signs reviewed. Dictation was accomplished with the use of [employer] voice recognition software, prone to medical misidentifications and grammatical errors. This is unintentional and the practitioner does try to identify and correct these, but some could still be present. Please do not hesitate to contact practitioner for clarification. All questions answered to patients satisfaction. Patient verbalized understanding of diagnosis and treatments explained. To call sooner prior to next visit it any questions/concerns arise. PLAN OF TREATMENT Medication Medication Name Sig Start Date Stop Date Notes Contrave 8-90 MG 2 tablets Orally twice a day for 30 days 04/21/2024 Pending Test Test Name Order Date FERRITIN 04/21/2024 IRON & TIBC 04/21/2024 TSH 04/21/2024 CBC with Differential 04/21/2024 Next Appt Details Follow Up: 4 Weeks, Reason: contrave Provider Name:Marissa Bear, 0 05/11/2024 10:15:00 AM, [address] [place] [address], [address], [phone], Provider Name:Marissa Bear, 0 05/18/2024 08:15:00 AM, [address] [place] [address], [address], [phone], Provider Name:Marissa Bear, 0 06/15/2024 08:15:00 AM, [address] [place] [address], [address], [phone], Progress Notes * PENG ZulemaDOB: [birth year] (53 yo F)Acc No.[id number]:04/21/2024 Patient:??Zulema KHOURY Provider:??Marissa Bear PA-C :1970?Age:53 Y?Sex:Fe male Date:04/21/2024 Address:[address] [place], [place] [id number] Subjective: * Chief Complaints: * ?1. Patient is here for weight management follow up. SECA done. Previous weight was 209. Today the patient weight is 216. Pt states she is doing well.. * HPI: ?Constitutional:? Zulema is a 53-year-old female here today for weight management follow-up. She does have a past medical history significant for morbid obesity, status post gastric sleeve 7 years ago. She has a history of hypothyroidism however did not tolerate the levothyroxine. Unfortunately her insurance will not cover wegovy or zepbound. ?She has previously tried phentermine however failed this due to palpitations. She is willing to consider contrave at this time. Compounded semaglutide is cost restrictive for her. She did just recently start hormone replacement therapy with her gardener and has noticed improvement of her menopausal symptoms. ?Highest weight: 283 ?Lowest weight: 155 (post gastric surgery) ?Current weight: 216.4, BMI 40.1 ?Weight last visit: 214.1, 39.6 ?Walking 6 k steps/day ?Has been inconsistent with protein intake. ?Has been eating much. ?No regular exercise recently ?Consistent water intake. ?Updated SECA reviewed today. Weight Is up 2 pounds. Fat mass is up 1 pound muscle mass is up 1 pound. ?Updated labs done in the last 2 months reviewed with patient. She did bring copies to the visit today. She does have iron deficiency anemia. A1c was 5.6. TSH was in normal range. Liver function tests were normal. Vitamin D level was elevated. She has cut back on her vitamin D supplement. B12 level was normal. She has not yet restarted her iron supplements. * ROS:?All Other Systems:?Review of Systems (ROS)??All others negative except those mentioned in HPI.? * Medical History:??Seasonal a llergies, Weight change, Hemorrhoids, Thyroid disease, Anemia. * Surgical History:??gastric b ypass [place] Feb 2016, tubal ligation , panniculectomy 2023. * Family History:??Father: dec eased.??Mother: .??1 sister(s) . 1 son(s) , 1 daughter(s) . .?? mother mhx stroke sister mhx thyroid and asthma December 2022 5 grandchildren. * Social History:?2 PPD 8 years quit 1990. * Medications:??Taking Magnesi um 200 MG Tablet 2 tablets with a meal Orally Once a day , Taking Zinc 100 MG Tablet 1 tablet Orally Once a day , Taking Probiotic 250 MG Capsule as directed Orally , Taking Calcium 500 MG Tablet 1 tablet with meals Orally Twice a day , Taking Vitamin C 500 MG Capsule as directed Orally , Taking Vitamin A 2400 MCG (8000 UT) Tablet as directed Orally , Discontinued Zepbound 2.5 MG/0.5ML Solution Auto-injector 0.5 mL Subcutaneous once weekly , Medication List reviewed and reconciled with the patient * Allergies:??Shellfish-derive d Products. Objective: * Vitals:??HR:68/min, BP:138/8 2mm Hg, Wt:216.4lbs, BMI:39.9Index, Ht: 61.75 in, Oxygen sat %:99%. * Physical Examination:?General: Well appearing, well nourished, age appropriate in no acute distress. Speaking in full, clear sentences. ?SKIN: Warm, dry intact. No rashes/lesions. ?HEENT: Normocephalic atraumatic. EOM intact. No nystagmus noted. PERRLA. ?LUNGS: Clear to auscultation bilaterally, no wheezes, rales or rhonchi ?CARDIAC: Regular rate and rhythm, no murmurs, rubs or gallops. ?Extremities: Warm and well perfused. No edema noted. ?Neuro: CN II-XI grossly intact. Speaking in full sentences. Hearing intact. Assessment: * Assessment: 1.??Morbid obesity - E66.01 (Primary)??2.??BMI 40.0-44.9, adult - Z68.41??3.??Anemia, unspecified type - D64.9??4.??Hypothyroidism, unspecified type - E03.9??5.??S/P gastric sleeve procedure - Z90.3??6.??Weight loss counseling, encounter for - Z71.3?? #Morbid obesity. 04/21/24: 216.4 pounds, BMI 40.1. Unfortunately she has continued to gain weight. Her insurance does not cover Zepbound or Wegovy. She has tried phentermine in the past however did not tolerate it secondary to palpitations. Discussed weight management options in detail. Unfortunately compounded semaglutide is cost restrictive for her at this time. Will start Contrave. Reviewed risk benefits adverse effects of medication patient discussed proper use and tapering schedule given to her with handwritten instructions. Discussed importance of dietary modifications including increased protein intake of 80 to 100 g a day. Continue to work on hydration and regular exercise including resistance training. 03/24/24: 214.1 pounds, BMI 39.6. She is most interested in Zepbound. Reviewed risk benefits adverse effects of medication in detail with patient. Reviewed proper use and demonstrated pen autoinjector. Will submit to pharmacy discussed PA process. If Zepbound is denied would consider Wegovy. She has previously tried phentermine however had side effects of palpitations and did not tolerate. She is reluctant to take Contrave. She is struggling to manage her weight without medication at this time. Discussed importance of protein intake, hydration and regular exercise. Follow-up in 1 month sooner with any concerns. 02/25/24: 209 pounds, BMI 38.7. She is interested in considering weight management medications. She has tried phentermine in the past however had palpitations as a side effect and did not tolerate. She is reluctant to take Contrave. She is most interested in Zepbound or compounded tirzepatide. Reviewed with patient it is unclear as of today if compounded tirzepatide will continue to be available. She would like to hold off on starting medication today. She plans to contact her insurance company in regards to coverage for Wegovy or Zepbound. Will get updated labs and follow- up in 1 month. Discussed importance of protein intake, hydration and consistent exercise. Follow-up sooner with any concerns. #Anemia. History of iron deficiency anemia. Labs reviewed. Advised to restart her iron supplement. Recheck labs in 6-8 weeks. If no improvement, consider referral as she has previously done iron infusions in the past. #Hypothyroidism. She did not tolerate levothyroxine. TSH in range on repeat labs. Will monitor. #S/p Gastric sleeve procedure. She has had some weight regain since. She did recently have a panniculectomy. Start Contrave as above. The patient will continue exercise regimen with an emphasis on improving/increasing steps to at least 6,000-10,000 steps per day. Increasing cardio and strength training exercises as tolerated to improve weight loss and work on building muscle mass. Patient is committed to smarter eating with calorie counting and mindful eating. Limiting processed foods and carbohydrates and increasing leafy greens and lean proteins as well as fruits into their diet. Patient was counseled on the importance of eating local, organic food when possible. Patient has been counseled regarding effects of GLP/GIP-1 agonists and other FDA approved weight loss medications with regards to a multifactorial approach of weight loss as mentioned above and that the medication alone will not be sufficient to meet patients goals. We discussed holistic medication approach with emphasis on lifestyle modification. Discussed obesity as it increases risk of diabetes, cardiovascular disease, and/or organ damage. We spent a lot of time discussing the relationship between food, exercise, sleep, mental health, and obesity. We discussed the importance of having SECAs done every visit and having accountability done during these visits. That the scale is done to monitor not only weight loss but the body composition during medication management and healthy lifestyle changes. We discussed that if the patient is unable at times to financially afford this scale that we would rather waive the fee and have the scale done than have the patient not have the scale obtained. Will follow up with the patient in 4 weeks time to monitor weight loss. Total time was 30 min, greater than 50 % of time was spent on care coordination Case discussed with collaborating physician Rki Mayorga who reviewed the assessment and plan. Chart, medications, labs, vital signs reviewed. Dictation was accomplished with the use of [employer] voice recognition software, prone to medical misidentifications and grammatical errors. This is unintentional and the practitioner does try to identify and correct these, but some could still be present. Please do not hesitate to contact practitioner for clarification. All questions answered to patients satisfaction. Patient verbalized understanding of diagnosis and treatments explained. To call sooner prior to next visit it any questions/concerns arise. Plan: * Treatment: 2.??Anemia, unspecified type ?LAB: FERRITIN ?LAB: IRON & TIBC ?LAB: TSH ?LAB: CBC with Differential * Procedure Codes:??G0447 FCE- FCE BEHAVRL CNSL OBESITY 15 MIN, Modifiers: 59 * Follow Up:??4 Weeks (Reason: contrave) * Images: Billing Information: * Visit Code:?? 47284 Office Visit, Est Pt., Level 4. * Procedure Codes:?? G0447 FCE-FCE BEHAVRL CNSL OBESITY 15 MIN. Modifiers: 59 * Sign off status: Completed true * Provider:??Marissa Bear PA-C Date:??04/03 History and Physical Notes * HPI (History of Present Illness) Category Sub-Category Detail Notes Category Not es Constitutional Zulema is a 53-year-old female here today for weight management follow-up. She does have a past medical history significant for morbid obesity, status post gastric sleeve 7 years ago. She has a history of hypothyroidism however did not tolerate the levothyroxine. Unfortunately her insurance will not cover wegovy or zepbound. She has previously tried phentermine however failed this due to palpitations. She is willing to consider contrave at this time. Compounded semaglutide is cost restrictive for her. She did just recently start hormone replacement therapy with her gardener and has noticed improvement of her menopausal symptoms. Highest weight: 283 Lowest weight: 155 (post gastric surgery) Current weight: 216.4, BMI 40.1 Weight last visit: 214.1, 39.6 Walking 6 k steps/day Has been inconsistent with protein intake. Has been eating much. No regular exercise recently Consistent water intake. Updated SECA reviewed today. Weight Is up 2 pounds. Fat mass is up 1 pound muscle mass is up 1 pound. Updated labs done in the last 2 months reviewed with patient. She did bring copies to the visit today. She does have iron deficiency anemia. A1c was 5.6. TSH was in normal range. Liver function tests were normal. Vitamin D level was elevated. She has cut back on her vitamin D supplement. B12 level was normal. She has not yet restarted her iron supplements. Physical Examination Category Sub-Category Detail Notes Section Note s General: Well appearing, well nourished, age appropriate in no acute distress. Speaking in full, clear sentences. SKIN: Warm, dry intact. No rashes/lesions. HEENT: Normocephalic atraumatic. EOM intact. No nystagmus noted. PERRLA. LUNGS: Clear to auscultation bilaterally, no wheezes, rales or rhonchi CARDIAC: Regular rate and rhythm, no murmurs, rubs or gallops. Extremities: Warm and well perfused. No edema noted. Neuro: CN II-XI grossly intact. Speaking in full sentences. Hearing intact.
--- OUTSIDE RECORDS SUMMARY | 2024-05-10 06:06 | XMS_ITS ---
Author Organization [facility] Address [address] [place] [address] Care Team Providers Care Levi Maker Name Role Phone MOISÉS WALDROP Unavailable Marissa Bear Unavailable [phone] ALLERGIES Allergen (clinical drug ingredient) Drug/Non Drug Allergy documented on EMR Reaction Allergy Type Onset Date Status Shellfish (FN) Shellfish-derived Products Unknown Drug Allergy Active REASON FOR VISIT PT IS HERE FOR WT MGT F/U, NO NEW CONCERNS MEDICATIONS Medication SIG (Take, Route, Frequency, Duration) Notes Start Date End Date Status Probiotic 250 MG as directed Orally Active Vitamin C 500 MG as directed Orally Active Calcium 500 MG 1 tablet with meals Orally Twice a day Active Vitamin A 2400 MCG (8000 UT) as directed Orally Active Zepbound 2.5 MG/0.5ML 0.5 mL Subcutaneou s once weekly for 30 days 03/24/2024 Active Zinc 100 MG 1 tablet Orally Once a day Active Magnesium 200 MG 2 tablets with a filiberto l Orally Once a day Active PROBLEMS Problem Type ICD Code Onset Dates Problem Status W/U Status Risk SNOMED Code Notes Problem BMI 39.0-39.9,ad ult (Z68.39) Active confirmed [id number] VITAL SIGNS Heart Rate 81 /min 03/24/2024 Blood pressure systolic 148 mm Hg 03/24/20 24 Blood pressure diastolic 92 mm Hg 024 Weight 214 lbs 03/24/2024 BMI 37.9 kg/m2 03/24/2024 Height 63 in 03/24/2024 Oximetry 98 % 03/24/2024 Encounters Encounter Location Date Provider Diagnosis [address] [facility] [address] [place] [address] 03/24/2024 Marissa Bear Morbid obesity E66.0 1 ; BMI 39.0-39.9,adult Z68.39 ; Anemia, unspecified type D64.9 ; Hypothyroidism, unspecified type E03.9 ; S/P gastric sleeve procedure Z90.3 and Weight loss counseling, encounter for Z71.3 ASSESSMENTS Encounter Date Diagnosis Assessment Notes Treatment Notes Treatment Clinical Notes Section Notes 03/24/2024 Morbid obesity (ICD-10 - E66.01) #Morbid obesity. 03/24/24: 214.1 pounds, BMI 39.6. She is [...] any concerns. #Anemia. History of iron deficiency anemia previously on iron infusions. Will get updated iron studies. F/u pending results. #Hypothyroidism. She did not tolerate levothyroxine. recheck labs. #S/p Gastric sleeve procedure. He has had some weight regain since. She did recently have a panniculectomy. Will get updated labs follow-up pending results. The patient will continue exercise regimen with [...] Dictation was accomplished with the use of [employer] voice recognition software, prone to medical misidentifications and grammatical errors. This is unintentional and the practitioner does try to identify and correct these, but some could still be present. Please do not hesitate to contact practitioner for clarification. All questions answered to patients satisfaction. Patient verbalized understanding of diagnosis and treatments explained. To call sooner prior to next visit it any questions/concerns arise. 03/24/2024 BMI 39.0-39.9,adul t (ICD-10 - Z68.39) #Morbid obesity. 03/24/24: 214.1 pounds, BMI 39.6. She is [...] any concerns. #Anemia. History of iron deficiency anemia previously on iron infusions. Will get updated iron studies. F/u pending results. #Hypothyroidism. She did not tolerate levothyroxine. recheck labs. #S/p Gastric sleeve procedure. He has had some weight regain since. She did recently have a panniculectomy. Will get updated labs follow-up pending results. The patient will continue exercise regimen with [...] Dictation was accomplished with the use of [employer] voice recognition software, prone to medical misidentifications and grammatical errors. This is unintentional and the practitioner does try to identify and correct these, but some could still be present. Please do not hesitate to contact practitioner for clarification. All questions answered to patients satisfaction. Patient verbalized understanding of diagnosis and treatments explained. To call sooner prior to next visit it any questions/concerns arise. 03/24/2024 Anemia, unspecified type (ICD-10 - D64.9) #Morbid obesity. 03/24/24: 214.1 pounds, BMI 39.6. She is [...] any concerns. #Anemia. History of iron deficiency anemia previously on iron infusions. Will get updated iron studies. F/u pending results. #Hypothyroidism. She did not tolerate levothyroxine. recheck labs. #S/p Gastric sleeve procedure. He has had some weight regain since. She did recently have a panniculectomy. Will get updated labs follow-up pending results. The patient will continue exercise regimen with [...] Dictation was accomplished with the use of [employer] voice recognition software, prone to medical misidentifications and grammatical errors. This is unintentional and the practitioner does try to identify and correct these, but some could still be present. Please do not hesitate to contact practitioner for clarification. All questions answered to patients satisfaction. Patient verbalized understanding of diagnosis and treatments explained. To call sooner prior to next visit it any questions/concerns arise. 03/24/2024 Hypothyroidism , unspecified type (ICD-10 - E03.9) #Morbid obesity. 03/24/24: 214.1 pounds, BMI 39.6. She is [...] any concerns. #Anemia. History of iron deficiency anemia previously on iron infusions. Will get updated iron studies. F/u pending results. #Hypothyroidism. She did not tolerate levothyroxine. recheck labs. #S/p Gastric sleeve procedure. He has had some weight regain since. She did recently have a panniculectomy. Will get updated labs follow-up pending results. The patient will continue exercise regimen with [...] Dictation was accomplished with the use of [employer] voice recognition software, prone to medical misidentifications and grammatical errors. This is unintentional and the practitioner does try to identify and correct these, but some could still be present. Please do not hesitate to contact practitioner for clarification. All questions answered to patients satisfaction. Patient verbalized understanding of diagnosis and treatments explained. To call sooner prior to next visit it any questions/concerns arise. 03/24/2024 S/P gastric sleeve procedure (ICD-10 - Z90.3) #Morbid obesity. 03/24/24: 214.1 pounds, BMI 39.6. She is [...] any concerns. #Anemia. History of iron deficiency anemia previously on iron infusions. Will get updated iron studies. F/u pending results. #Hypothyroidism. She did not tolerate levothyroxine. recheck labs. #S/p Gastric sleeve procedure. He has had some weight regain since. She did recently have a panniculectomy. Will get updated labs follow-up pending results. The patient will continue exercise regimen with [...] Dictation was accomplished with the use of [employer] voice recognition software, prone to medical misidentifications and grammatical errors. This is unintentional and the practitioner does try to identify and correct these, but some could still be present. Please do not hesitate to contact practitioner for clarification. All questions answered to patients satisfaction. Patient verbalized understanding of diagnosis and treatments explained. To call sooner prior to next visit it any questions/concerns arise. 03/24/2024 Weight loss counseling, encounter for (ICD-10 - Z71.3) #Morbid obesity. 03/24/24: 214.1 pounds, BMI 39.6. She is [...] any concerns. #Anemia. History of iron deficiency anemia previously on iron infusions. Will get updated iron studies. F/u pending results. #Hypothyroidism. She did not tolerate levothyroxine. recheck labs. #S/p Gastric sleeve procedure. He has had some weight regain since. She did recently have a panniculectomy. Will get updated labs follow-up pending results. The patient will continue exercise regimen with [...] Dictation was accomplished with the use of Dragon voice recognition software, prone to medical misidentifications [...] Name Sig Start Date Stop Date Notes Zepbound 2.5 MG/0.5ML 0.5 mL Subcutaneou s once weekly for 30 days 03/24/2024 Next Appt Details Follow Up: 4 Weeks, Reason: zepbound Provider Name:Marissa Randynevineloy, 0 05/11/2024 10:15:00 AM, [address] [place] [address], [address], [id number], Provider Name:Marissa Bear, 0 05/18/2024 08:15:00 AM, [address] [place] [address], [phone], Provider Name:Marissa Bear, 0 06/15/2024 08:15:00 AM, [address] [place] [address], [address], [id number], Progress Notes * KHOURYZulemaDOB: 1 (53 yo F)Acc No.[id number]:03/24/2024 Patient:??PENG Zulema Provider:??Marissa Bear PA-C :1970?Age:53 Y?Sex:Fe male Date:03/24/2024 Address:[address] [place] [address] Carl diane [id number] Subjective: * Chief Complaints: * ?1. PT IS HERE FOR WT M GT F/U, NO NEW CONCERNS. * HPI: ?Constitutional:? Zulema is a 53-year-old female here today for weight management follow-up. She does have a past medical history significant for morbid obesity, status post gastric sleeve 7 years ago. She has a history of hypothyroidism however did not tolerate the levothyroxine. She is most interested in Zepbound. Unsure if her insurance covers it. Updated labs done, We has to do further labs prior to next follow up. ?She has previously tried phentermine however failed this due to palpitations. She is reluctant to take contrave. ?Highest weight: 283 ?Lowest weight: 155 (post gastric surgery) ?Current weight: 214.1, 39.6 (+5) ?Weight last visit: 209, 38.7 ?Walking 6 k steps/day ?Has been inconsistent with protein intake. ?Has been eating much. ?No regular exercise recently ?Consistent water intake. ?Updated SECA reviewed today. Weight and fat mass are up 5 pounds since last visit. Muscle mass is stable. * ROS:?All Other Systems:?Review of Systems (ROS)??All others negative except those mentioned in HPI.? * Medical History:??Seasonal a llergies, Weight change, Hemorrhoids, Thyroid disease, Anemia. * Surgical History:??gastric b ypass [place] Feb 2016, tubal ligation , panniculectomy 2023. [...] UT) Tablet as directed Orally , Discontinued Loratadine 10 MG Tablet 1 tablet Orally Once a day , Medication List reviewed and reconciled with the patient * Allergies:??Shellfish-derive d Products. Objective: * Vitals:??HR:81/min, BP:148/9 2mm Hg, Wt:214lbs, BMI:37.9Index, Ht: 63 in, Oxygen sat %:98%. * Physical Examination:?General: Well appearing, well nourished, [...] * Assessment: 1.??Morbid obesity - E66.01 (Primary)??2.??BMI 39.0-39.9,adult - Z68.39??3.??Anemia, unspecified type - D64.9??4.??Hypothyroidism, unspecified type - E03.9??5.??S/P gastric sleeve procedure - Z90.3??6.??Weight loss counseling, encounter for - Z71.3?? #Morbid obesity. 03/24/24: 214.1 pounds, BMI 39.6. She is [...] any concerns. #Anemia. History of iron deficiency anemia previously on iron infusions. Will get updated iron studies. F/u pending results. #Hypothyroidism. She did not tolerate levothyroxine. recheck labs. #S/p Gastric sleeve procedure. He has had some weight regain since. She did recently have a panniculectomy. Will get updated labs follow-up pending results. The patient will continue exercise regimen with [...] Dictation was accomplished with the use of [employer] voice recognition software, prone to medical misidentifications [...] it any questions/concerns arise. Plan: * Treatment: * Procedure Codes:??G0447 FCE- FCE BEHAVRL CNSL OBESITY 15 MIN, Modifiers: 59 * Follow Up:??4 Weeks (Reason: zepbound) * Images: Billing Information: * Visit Code:?? 87807 Office Visit, Est Pt., Level 4. * Procedure Codes:?? G0447 FCE-FCE BEHAVRL CNSL OBESITY 15 MIN. Modifiers: 59 * Sign off status: Completed true * Provider:??Marissa Bear PA-C Date:??03/05 History and Physical Notes * HPI (History of Present Illness) Category Sub-Category Detail Notes Category Not es Constitutional Zulema is a 53-year-old female here today for weight management follow-up. She does have a past medical history significant for morbid obesity, status post gastric sleeve 7 years ago. She has a history of hypothyroidism however did not tolerate the levothyroxine. She is most interested in Zepbound. Unsure if her insurance covers it. Updated labs done, We has to do further labs prior to next follow up. She has previously tried phentermine however failed this due to palpitations. She is reluctant to take contrave. Highest weight: 283 Lowest weight: 155 (post gastric surgery) Current weight: 214.1, 39.6 (+5) Weight last visit: 209, 38.7 Walking 6 k steps/day Has been inconsistent with protein intake. Has been eating much. No regular exercise recently Consistent water intake. Updated SECA reviewed today. Weight and fat mass are up 5 pounds since last visit. Muscle mass is stable. Physical Examination Category Sub-Category Detail Notes Section [...]
--- OUTSIDE RECORDS SUMMARY | 2024-05-10 06:06 | XMS_ITS | Patient Health Record ---
Author Organization [facility] Address [address] [place] [address] Care Team Providers Care Glass Worker Name Role Phone MOISÉS WALDROP Unavailable [phone] ANAYELI MAYORGA Unavailable [phone] EricMarissa lyons Unavailable [phone] ALLERGIES Allergen (clinical drug ingredient) Drug/Non Drug Allergy documented on EMR Reaction Allergy Type Onset Date Status Shellfish (FN) Shellfish-derived Products Unknown Drug Allergy Active RESULTS Component Value Reference Range Notes ESTROGEN, TOTAL, SERUM Reviewed date:06/18/2023 09:16:17 AM Interpretation: Performing Lab:EZ, [facility],[address] [facility] Kristina Esquivel MD,PhD,OFE Notes/Report: FASTING: NO FASTING:NO ESTROGENS, TOTAL, IA 79 Reference Ranges for Total Estrogen: Follicular Phase: 51-601 Luteal Phase: 87-1194 Postmenopausal: < or = 214 T3, FREE Reviewed date:06/10/2023 03:36:05 PM Interpretation: Performing Lab:NL2, [facility] Staci Varela Notes/Report: FASTING:NO FASTING: NO T3, FREE 3.0 2.3-4.2 pg/mL TSH Reviewed date:06/10/2023 03:36:05 PM Interpretation: Performing Lab:NL2, [facility] [id number] [place] [address] Notes/Report: FASTING:NO FASTING: NO TSH 3.88 Reference Range > or = 20 Years 0.40-4.50 Ranges First trimester 0.26-2.66 Second trimester 0.55-2.73 Third trimester 0.43-2.91 T4, FREE Reviewed date:06/10/2023 03:36:05 PM Interpretation: Performing Lab:[facility] [address] Notes/Report: FASTING:NO FASTING: NO T4, FREE 1.1 0.8-1.8 ng/dL PROLACTIN Reviewed date:06/10/2023 03:36:05 PM Interpretation: Performing Lab:[facility] [address] Notes/Report: FASTING:NO FASTING: NO PROLACTIN 12.6 Reference Range Females Non- 3.0-30.0 10.0-209.0 Postmenopausal 2.0-20.0 PROGESTERONE Reviewed date:06/10/2023 03:36:05 PM Interpretation: Performing Lab:DA[facility] [address] Notes/Report: FASTING:NO FASTING: NO PROGESTERONE <0.5 Reference Ranges Female Follicular Phase < 1.0 Luteal Phase 2.6-21.5 Post menopausal < 0.5 1st Trimester 4.1-34.0 2nd Trimester 24.0-76.0 3rd Trimester 52.0-302.0 URINALYSIS, COMPLETE Reviewed date:06/11/2023 10:17:09 AM Interpretation: Performing Lab:[employer] [place] [employer] [facility] [address] Notes/Report: FASTING:NO FASTING: NO COLOR YELLOW YELLOW APPEARANCE CLOUDY CLEAR SPECIFIC GRAVITY 1.021 1.001-1.035 PH 6.0 5.0-8.0 GLUCOSE NEGATIVE NEGATIVE BILIRUBIN NEGATIVE NEGATIVE KETONES NEGATIVE NEGATIVE OCCULT BLOOD NEGATIVE NEGATIVE PROTEIN NEGATIVE NEGATIVE NITRITE NEGATIVE NEGATIVE LEUKOCYTE ESTERASE TRACE NEGATIVE WBC 0-5 < OR = 5 /HPF RBC 0-2 < OR = 2 /HPF SQUAMOUS EPITHELIAL CELLS 0-5 < OR = 5 /HPF BACTERIA FEW NONE SEEN /HPF HYALINE CAST NONE SEEN NONE SEEN /LPF NOTE This urine was analyzed for the presence of WBC, RBC, bacteria, casts, and other formed elements. Only those elements seen were reported. CBC (INCLUDES DIFF/PLT) Reviewed date:06/10/2023 04:00:41 PM Interpretation: Performing Lab:[employer] [place] [employer] [facility] Staci Varela Notes/Report: FASTING:NO FASTING: NO WHITE BLOOD CELL COUNT 7.0 3.8-10.8 Thousand/ uL RED BLOOD CELL COUNT 3.97 3.80-5.10 Million/uL HEMOGLOBIN 10.4 11.7-15.5 g/dL HEMATOCRIT 32.6 35.0-45.0 % MCV 82.1 80.0-100.0 fL MCH 26.2 27.0-33.0 pg MCHC 31.9 32.0-36.0 g/dL RDW 14.7 11.0-15.0 % PLATELET COUNT 284 140-400 Thousand/uL MPV 10.3 7.5-12.5 fL ABSOLUTE NEUTROPHILS [phone] cells/uL ABSOLUTE LYMPHOCYTES 2569 850-3900 cells/uL ABSOLUTE MONOCYTES 665 200-950 cells/uL ABSOLUTE EOSINOPHILS 112 15-500 cells/uL ABSOLUTE BASOPHILS 28 0-200 cells/uL NEUTROPHILS 51.8 LYMPHOCYTES 36.7 MONOCYTES 9.5 EOSINOPHILS 1.6 BASOPHILS 0.4 COMPREHENSIVE METABOLIC PANE L Reviewed date:06/10/2023 03:36:05 PM Interpretation: Performing Lab:2, [facility] Staci Varela Notes/Report: FASTING:NO FASTING: NO GLUCOSE 90 65-139 mg/dL Non-fasting reference interval UREA NITROGEN (BUN) 15 7-25 mg/dL CREATININE 0.61 0.50-1.03 mg/dL EGFR 108 > OR = 60 mL/min/1.73m2 BUN/CREATININE RATIO SEE NOTE: 6-22 (calc) Not Reported: BUN and Creatinine are within reference range. SODIUM 139 135-146 mmol/L POTASSIUM 4.2 3.5-5.3 mmol/L CHLORIDE 107 98-110 mmol/L CARBON DIOXIDE 24 20-32 mmol/L CALCIUM 9.1 8.6-10.4 mg/dL PROTEIN, TOTAL 6.5 6.1-8.1 g/dL ALBUMIN 3.8 3.6-5.1 g/dL GLOBULIN 2.7 1.9-3.7 g/dL (calc) ALBUMIN/GLOBULIN RATIO 1.4 1.0-2.5 (calc) BILIRUBIN, TOTAL 0.2 0.2-1.2 mg/dL ALKALINE PHOSPHATASE 72 37-153 U/L AST 18 10-35 U/L ALT 13 6-29 U/L FSH AND LH Reviewed date:06/10/2023 03:36:05 PM Interpretation: Performing Lab:NL2, [facility] Staci Varela Notes/Report: FASTING:NO FASTING: NO FSH 16.5 Reference Range Follicular Phase 2.5-10.2 Mid-cycle Peak 3.1-17.7 Luteal Phase 1.5- 9.1 Postmenopausal 23.0-116.3 LH 4.6 Reference Range Follicular Phase 1.9-12.5 Mid-Cycle Peak 8.7-76.3 Luteal Phase 0.5-16.9 Postmenopausal 10.0-54.7 REASON FOR REFERRAL No Information MEDICATIONS Medication SIG (Take, Route, Frequency, Duration) Notes Start Date End Date Status Magnesium 200 MG 2 tablets with a filiberto l Orally Once a day Active Zinc 100 MG 1 tablet Orally Once a day Active Vitamin C 500 MG as directed Orally Active Probiotic 250 MG as directed Orally Active Calcium 500 MG 1 tablet with meals Orally Twice a day Active Vitamin A 2400 MCG (8000 UT) as directed Orally Active Contrave 8-90 MG 2 tablets Orally twi ce a day for 30 days 04/21/2024 Active PROBLEMS Problem Type ICD Code Onset Dates Problem Status W/U Status Risk SNOMED Code Notes Problem Morbid obesity (E66.01) Active confirmed 029293377 Problem Hypothyroidism, unspecified type (E03.9) Active confirmed Hypothyroidism (37628623) Problem Anemia, unspecified type (D64.9) Active confirmed 421348961 Problem BMI 40.0-44.9, adult (Z68.41) Active confirmed 119314954 Problem Obesity (BMI 30-39.9) (E66.9) Active confirmed Obesity (046454504) Problem BMI 37.0-37.9, adult (Z68.37) Active confirmed Obese class I I (458779939519837) Problem BMI 39.0-39.9,adult (Z68.39) Active confirmed 185536705 Problem BMI 38.0-38.9,adult (Z68.38) Active confirmed Obese class II (903997233147189) Problem Screening for cardiovascular condition (Z13.6) Active confirmed Screening for cardiovascular system disease (689260412) Problem Thyroid disorder screen (Z13.29) Active confirmed Thyroid diso rder screening (743985112) Problem Amenorrhea (N91.2) Active confirmed Amenorrhea (95921683) Problem H/O gastric sleeve (Z90.3) Active confirmed Gastric sleev e (physical object) (606745826) Problem Elevated lipids (E78.5) Active confirmed Elevated fastin g lipid profile (569408489412) Problem S/P gastric sleeve procedure (Z90.3) Active confirmed 490188217575334 Problem Anemia (D64.9) Active confirmed Anemia (374782843) Problem Hypothyroid (E03.9) Active confirmed Hypothyroid (94635760) Problem Vitamin D2 deficiency (E55.9) Active confirmed Vitamin D deficiency (81763676) VITAL SIGNS Heart Rate 68 /min 04/21/2024 Oximetry 99 % 04/21/2024 Blood pressure diastolic 82 mm Hg 04/21/2024 Height 61.75 in 04/21/2024 Blood pressure systolic 138 mm Hg 04/21/2024 Weight 216.4 lbs 04/21/2024 BMI 39.9 kg/m2 04/21/2024 Encounters Encounter Location Date Provider Diagnosis [facility] [address] [place] [address] 05/21/2023 ANAYELI MAYORGA [facility] [address] [place] [address] 06/09/2023 ANAYELI MAYORGA Hypothyroidism, unspecified type E03.9 ; Amenorrhea N91.2 ; Morbid obesity E66.01 and BMI 40.0-44.9, adult Z68.41 [facility] [address] [address] 07/07/2023 Marissa Svrcek BMI 40.0-44.9, adult Z68.41 ; Morbid obesity E66.01 ; Anemia, unspecified type D64.9 ; Hypothyroidism, unspecified type E03.9 ; Elevated blood pressure reading R03.0 ; History of sleep apnea Z86.69 and S/P gastric sleeve procedure Z90.3 [address] 02/25/2024 Marissa Svrcek Morbid obesity E66.01 ; BMI 38.0-38.9,adult Z68.38 ; Anemia, unspecified type D64.9 ; Hypothyroidism, unspecified type E03.9 ; S/P gastric sleeve procedure Z90.3 and Weight loss counseling, encounter for Z71.3 [address] 03/17/2024 Marissa Svrcek Hypothyroidism, unspecified type E03.9 ; Anemia, unspecified type D64.9 ; S/P gastric sleeve procedure Z90.3 and Morbid obesity E66.01 [address] 03/24/2024 Marissa Svrcek Morbid obesity E66.01 ; BMI 39.0-39.9,adult Z68.39 ; Anemia, unspecified type D64.9 ; Hypothyroidism, unspecified type E03.9 ; S/P gastric sleeve procedure Z90.3 and Weight loss counseling, encounter for Z71.3 [address] 04/21/2024 Marissa Svrcek Morbid obesity E66.01 ; BMI 40.0-44.9, adult Z68.41 ; Anemia, unspecified type D64.9 ; Hypothyroidism, unspecified type E03.9 ; S/P gastric sleeve procedure Z90.3 and Weight loss counseling, encounter for Z71.3 [address] 06/09/2023 MOISÉS [employer] [address] 03/24/2024 Marissa Svrcek ASSESSMENTS Encounter Date Diagnosis Assessment Notes Treatment Notes Treatment Clinical Notes Section Notes 06/09/2023 Hypothyroidism , unspecified type (ICD-10 - E03.9) Patient is here for weight management followup. We focused on significance of healthy lifestyle changes. We talked about need to track steps, work on portion control, read food labels, get adequate sleep, give adequate rest of the body, meditate, frequent nutritious meals including vegetables and healthy choices of meat and elimination of refined carbohydrates. We also talked about mindfulness and mindful eating. Particular focus was on elimination of refined carbohydrates portion control and above steps. Total time spent was 45 minutes with greater than 50% spent on counseling and coordinating care 07/07/2023 Morbid obesity (ICD-10 - E66.01) #Morbid obesity. 216.27 pounds, BMI 40.9. Reviewed comprehensive labs with patient as well as ceca scale. Weight is down 2 pounds since her last visit however this is predominantly fat-free mass that is decreased. Good total body water content. Discussed obesity medications in detail with patient. She had previously discussed compounded semaglutide with Dr. Mayorga on an every other week basis starting at 0.25 mg. She is interested in this but however would like to discuss further with her before starting. She has failed phentermine in the past. Discussed typical PA process at week 11. She will continue to work on increasing her exercise with a goal of 8000 steps a day. Continue to work towards increased protein intake of 80 g a day. Continue 80 ounces of water daily. Discussed importance of good quality sleep and stress management. She will call and let us know if she would like to move forward with compounded semaglutide. If she decides to will schedule nurse visit for 0.25 mg every other week for the first month and then follow-up with me. #Anemia. History of iron deficiency anemia previously on iron infusions. Reviewed labs which show mild anemia advised to follow-up with specialist. #Hypothyroidism. She did not tolerate levothyroxine. TSH is normal however on the higher end of normal. Advised to follow-up with PCP to discuss further options. #Elevated blood pressure. BP elevated in the office today advised to monitor at home and follow-up with PCP. #History of JESSICA. Advised to discuss with PCP he may benefit from repeat sleep study and treatment with CPAP if needed. The patient will continue exercise regimen with [...] Dictation was accomplished with the use of [employer] voice recognition software, prone to medical misidentifications and grammatical errors. This is unintentional and the practitioner does try to identify and correct these, but some could still be present. Please do not hesitate to contact practitioner for clarification. All questions answered to patients satisfaction. Patient verbalized understanding of diagnosis and treatments explained. To call sooner prior to next visit it any questions/concerns arise. 07/07/2023 BMI 40.0-44.9, adult (ICD-10 - Z68.41) #Morbid obesity. 216.27 pounds, BMI 40.9. Reviewed comprehensive labs with patient as well as ceca scale. Weight is down 2 pounds since her last visit however this is predominantly fat-free mass that is decreased. Good total body water content. Discussed obesity medications in detail with patient. She had previously discussed compounded semaglutide with Dr. Mayorga on an every other week basis starting at 0.25 mg. She is interested in this but however would like to discuss further with her before starting. She has failed phentermine in the past. Discussed typical PA process at week 11. She will continue to work on increasing her exercise with a goal of 8000 steps a day. Continue to work towards increased protein intake of 80 g a day. Continue 80 ounces of water daily. Discussed importance of good quality sleep and stress management. She will call and let us know if she would like to move forward with compounded semaglutide. If she decides to will schedule nurse visit for 0.25 mg every other week for the first month and then follow-up with me. #Anemia. History of iron deficiency anemia previously on iron infusions. Reviewed labs which show mild anemia advised to follow-up with specialist. #Hypothyroidism. She did not tolerate levothyroxine. TSH is normal however on the higher end of normal. Advised to follow-up with PCP to discuss further options. #Elevated blood pressure. BP elevated in the office today advised to monitor at home and follow-up with PCP. #History of JESSICA. Advised to discuss with PCP he may benefit from repeat sleep study and treatment with CPAP if needed. The patient will continue exercise regimen with [...] Dictation was accomplished with the use of [employer] voice recognition software, prone to medical misidentifications and grammatical errors. This is unintentional and the practitioner does try to identify and correct these, but some could still be present. Please do not hesitate to contact practitioner for clarification. All questions answered to patients satisfaction. Patient verbalized understanding of diagnosis and treatments explained. To call sooner prior to next visit it any questions/concerns arise. 02/25/2024 Morbid obesity (ICD-10 - E66.01) #Morbid obesity. 209 pounds, BMI 38.7. She is interested [...] previously on iron infusions. Will get updated labs. F/u pending results. #Hypothyroidism. She did not tolerate levothyroxine. Recheck labs. Follow up with PCP. #S/p Gastric sleeve procedure. He has had [...] Dictation was accomplished with the use of [employer] voice recognition software, prone to medical misidentifications and grammatical errors. This is unintentional and the practitioner does try to identify and correct these, but some could still be present. Please do not hesitate to contact practitioner for clarification. All questions answered to patients satisfaction. Patient verbalized understanding of diagnosis and treatments explained. To call sooner prior to next visit it any questions/concerns arise. 02/25/2024 BMI 38.0-38.9,adul t (ICD-10 - Z68.38) #Morbid obesity. 209 pounds, BMI 38.7. She is interested [...] previously on iron infusions. Will get updated labs. F/u pending results. #Hypothyroidism. She did not tolerate levothyroxine. Recheck labs. Follow up with PCP. #S/p Gastric sleeve procedure. He has had [...] to next visit it any questions/concerns arise. 03/17/2024 Hypothyroidism , unspecified type (ICD-10 - E03.9) #Hypothyroidism. TSH mildly elevated. Previously on levothyroxine however reports she felt terrible on it and has since been off for several months. She was previously seen by endocrinology. Will plan to repeat labs again in 4 weeks follow-up pending results. Consider new Endo consult if TSH continues to increase. #Anemia. History of iron deficiency anemia not currently on iron supplement. Will check iron studies and follow-up pending results. She reports she has previously needed iron infusions in the past. #Obesity. She is following with us for weight management as well. Status post gastric sleeve procedure. Case discussed with collaborating physician Subhash Mayorga who reviewed the assessment and plan. Chart, medications, labs, vital signs reviewed. Dictation was accomplished with the use of [employer] voice recognition software, prone to medical misidentifications [...] next visit it any questions/concerns arise. 03/24/2024 Morbid obesity (ICD-10 - E66.01) #Morbid [...] Dictation was accomplished with the use of [employer] voice recognition software, prone to medical misidentifications [...] Dictation was accomplished with the use of [employer] voice recognition software, prone to medical misidentifications [...] next visit it any questions/concerns arise. 04/21/2024 Morbid obesity (ICD-10 - E66.01) #Morbid [...] Dictation was accomplished with the use of [employer] voice recognition software, prone to medical misidentifications [...] Dictation was accomplished with the use of [employer] voice recognition software, prone to medical misidentifications [...] Dictation was accomplished with the use of [employer] voice recognition software, prone to medical misidentifications [...] Dictation was accomplished with the use of [employer] voice recognition software, prone to medical misidentifications and grammatical errors. This is unintentional and the practitioner does try to identify and correct these, but some could still be present. Please do not hesitate to contact practitioner for clarification. All questions answered to patients satisfaction. Patient verbalized understanding of diagnosis and treatments explained. To call sooner prior to next visit it any questions/concerns arise. 03/17/2024 Anemia, unspecified type (ICD-10 - D64.9) #Hypothyroidism. TSH mildly elevated. Previously on levothyroxine however reports she felt terrible on it and has since been off for several months. She was previously seen by endocrinology. Will plan to repeat labs again in 4 weeks follow-up pending results. Consider new Endo consult if TSH continues to increase. #Anemia. History of iron deficiency anemia not currently on iron supplement. Will check iron studies and follow-up pending results. She reports she has previously needed iron infusions in the past. #Obesity. She is following with us for weight management as well. Status post gastric sleeve procedure. Case discussed with collaborating physician Subhash Mayorga who reviewed the assessment and plan. Chart, medications, labs, vital signs reviewed. Dictation was accomplished with the use of [employer] voice recognition software, prone to medical misidentifications and grammatical errors. This is unintentional and the practitioner does try to identify and correct these, but some could still be present. Please do not hesitate to contact practitioner for clarification. All questions answered to patients satisfaction. Patient verbalized understanding of diagnosis and treatments explained. To call sooner prior to next visit it any questions/concerns arise. 02/25/2024 Anemia, unspecified type (ICD-10 - D64.9) #Morbid obesity. 209 pounds, BMI 38.7. She is interested [...] previously on iron infusions. Will get updated labs. F/u pending results. #Hypothyroidism. She did not tolerate levothyroxine. Recheck labs. Follow up with PCP. #S/p Gastric sleeve procedure. He has had [...] Dictation was accomplished with the use of [employer] voice recognition software, prone to medical misidentifications and grammatical errors. This is unintentional and the practitioner does try to identify and correct these, but some could still be present. Please do not hesitate to contact practitioner for clarification. All questions answered to patients satisfaction. Patient verbalized understanding of diagnosis and treatments explained. To call sooner prior to next visit it any questions/concerns arise. 07/07/2023 Anemia, unspecified type (ICD-10 - D64.9) #Morbid obesity. 216.27 pounds, BMI 40.9. Reviewed comprehensive labs with patient as well as ceca scale. Weight is down 2 pounds since her last visit however this is predominantly fat-free mass that is decreased. Good total body water content. Discussed obesity medications in detail with patient. She had previously discussed compounded semaglutide with Dr. Mayorga on an every other week basis starting at 0.25 mg. She is interested in this but however would like to discuss further with her before starting. She has failed phentermine in the past. Discussed typical PA process at week 11. She will continue to work on increasing her exercise with a goal of 8000 steps a day. Continue to work towards increased protein intake of 80 g a day. Continue 80 ounces of water daily. Discussed importance of good quality sleep and stress management. She will call and let us know if she would like to move forward with compounded semaglutide. If she decides to will schedule nurse visit for 0.25 mg every other week for the first month and then follow-up with me. #Anemia. History of iron deficiency anemia previously on iron infusions. Reviewed labs which show mild anemia advised to follow-up with specialist. #Hypothyroidism. She did not tolerate levothyroxine. TSH is normal however on the higher end of normal. Advised to follow-up with PCP to discuss further options. #Elevated blood pressure. BP elevated in the office today advised to monitor at home and follow-up with PCP. #History of JESSICA. Advised to discuss with PCP he may benefit from repeat sleep study and treatment with CPAP if needed. The patient will continue exercise regimen with [...] Dictation was accomplished with the use of [employer] voice recognition software, prone to medical misidentifications and grammatical errors. This is unintentional and the practitioner does try to identify and correct these, but some could still be present. Please do not hesitate to contact practitioner for clarification. All questions answered to patients satisfaction. Patient verbalized understanding of diagnosis and treatments explained. To call sooner prior to next visit it any questions/concerns arise. 06/09/2023 Amenorrhea (ICD-10 - N91.2) Patient is here for weight management followup. We focused on significance of healthy lifestyle changes. We talked about need to track steps, work on portion control, read food labels, get adequate sleep, give adequate rest of the body, meditate, frequent nutritious meals including vegetables and healthy choices of meat and elimination of refined carbohydrates. We also talked about mindfulness and mindful eating. Particular focus was on elimination of refined carbohydrates portion control and above steps. Total time spent was 45 minutes with greater than 50% spent on counseling and coordinating care 06/09/2023 Morbid obesity (ICD-10 - E66.01) Patient is here for weight management followup. We focused on significance of healthy lifestyle changes. We talked about need to track steps, work on portion control, read food labels, get adequate sleep, give adequate rest of the body, meditate, frequent nutritious meals including vegetables and healthy choices of meat and elimination of refined carbohydrates. We also talked about mindfulness and mindful eating. Particular focus was on elimination of refined carbohydrates portion control and above steps. Total time spent was 45 minutes with greater than 50% spent on counseling and coordinating care 02/25/2024 Hypothyroidism , unspecified type (ICD-10 - E03.9) #Morbid obesity. 209 pounds, BMI 38.7. She is interested [...] previously on iron infusions. Will get updated labs. F/u pending results. #Hypothyroidism. She did not tolerate levothyroxine. Recheck labs. Follow up with PCP. #S/p Gastric sleeve procedure. He has had [...] Dictation was accomplished with the use of [employer] voice recognition software, prone to medical misidentifications and grammatical errors. This is unintentional and the practitioner does try to identify and correct these, but some could still be present. Please do not hesitate to contact practitioner for clarification. All questions answered to patients satisfaction. Patient verbalized understanding of diagnosis and treatments explained. To call sooner prior to next visit it any questions/concerns arise. 07/07/2023 Hypothyroidism , unspecified type (ICD-10 - E03.9) #Morbid obesity. 216.27 pounds, BMI 40.9. Reviewed comprehensive labs with patient as well as ceca scale. Weight is down 2 pounds since her last visit however this is predominantly fat-free mass that is decreased. Good total body water content. Discussed obesity medications in detail with patient. She had previously discussed compounded semaglutide with Dr. Mayorga on an every other week basis starting at 0.25 mg. She is interested in this but however would like to discuss further with her before starting. She has failed phentermine in the past. Discussed typical PA process at week 11. She will continue to work on increasing her exercise with a goal of 8000 steps a day. Continue to work towards increased protein intake of 80 g a day. Continue 80 ounces of water daily. Discussed importance of good quality sleep and stress management. She will call and let us know if she would like to move forward with compounded semaglutide. If she decides to will schedule nurse visit for 0.25 mg every other week for the first month and then follow-up with me. #Anemia. History of iron deficiency anemia previously on iron infusions. Reviewed labs which show mild anemia advised to follow-up with specialist. #Hypothyroidism. She did not tolerate levothyroxine. TSH is normal however on the higher end of normal. Advised to follow-up with PCP to discuss further options. #Elevated blood pressure. BP elevated in the office today advised to monitor at home and follow-up with PCP. #History of JESSICA. Advised to discuss with PCP he may benefit from repeat sleep study and treatment with CPAP if needed. The patient will continue exercise regimen with [...] Dictation was accomplished with the use of [employer] voice recognition software, prone to medical misidentifications and grammatical errors. This is unintentional and the practitioner does try to identify and correct these, but some could still be present. Please do not hesitate to contact practitioner for clarification. All questions answered to patients satisfaction. Patient verbalized understanding of diagnosis and treatments explained. To call sooner prior to next visit it any questions/concerns arise. 03/17/2024 S/P gastric sleeve procedure (ICD-10 - Z90.3) #Hypothyroidism. TSH mildly elevated. Previously on levothyroxine however reports she felt terrible on it and has since been off for several months. She was previously seen by endocrinology. Will plan to repeat labs again in 4 weeks follow-up pending results. Consider new Endo consult if TSH continues to increase. #Anemia. History of iron deficiency anemia not currently on iron supplement. Will check iron studies and follow-up pending results. She reports she has previously needed iron infusions in the past. #Obesity. She is following with us for weight management as well. Status post gastric sleeve procedure. Case discussed with collaborating physician Subhsah Mayorga who reviewed the assessment and plan. Chart, medications, labs, vital signs reviewed. Dictation was accomplished with the use of [employer] voice recognition software, prone to medical misidentifications [...] Dictation was accomplished with the use of [employer] voice recognition software, prone to medical misidentifications [...] Dictation was accomplished with the use of [employer] voice recognition software, prone to medical misidentifications [...] in 1 month sooner with any concerns. 10/24/24: 209 pounds, BMI 38.7. She is interested [...] Dictation was accomplished with the use of [employer] voice recognition software, prone to medical misidentifications [...] Dictation was accomplished with the use of [employer] voice recognition software, prone to medical misidentifications and grammatical errors. This is unintentional and the practitioner does try to identify and correct these, but some could still be present. Please do not hesitate to contact practitioner for clarification. All questions answered to patients satisfaction. Patient verbalized understanding of diagnosis and treatments explained. To call sooner prior to next visit it any questions/concerns arise. 03/17/2024 Morbid obesity (ICD-10 - E66.01) #Hypothyroidism. TSH mildly elevated. Previously on levothyroxine however reports she felt terrible on it and has since been off for several months. She was previously seen by endocrinology. Will plan to repeat labs again in 4 weeks follow-up pending results. Consider new Endo consult if TSH continues to increase. #Anemia. History of iron deficiency anemia not currently on iron supplement. Will check iron studies and follow-up pending results. She reports she has previously needed iron infusions in the past. #Obesity. She is following with us for weight management as well. Status post gastric sleeve procedure. Case discussed with collaborating physician Subhash Mayorga who reviewed the assessment and plan. Chart, medications, labs, vital signs reviewed. Dictation was accomplished with the use of [employer] voice recognition software, prone to medical misidentifications and grammatical errors. This is unintentional and the practitioner does try to identify and correct these, but some could still be present. Please do not hesitate to contact practitioner for clarification. All questions answered to patients satisfaction. Patient verbalized understanding of diagnosis and treatments explained. To call sooner prior to next visit it any questions/concerns arise. 02/25/2024 S/P gastric sleeve procedure (ICD-10 - Z90.3) #Morbid obesity. 209 pounds, BMI 38.7. She is interested [...] previously on iron infusions. Will get updated labs. F/u pending results. #Hypothyroidism. She did not tolerate levothyroxine. Recheck labs. Follow up with PCP. #S/p Gastric sleeve procedure. He has had [...] Dictation was accomplished with the use of [employer] voice recognition software, prone to medical misidentifications and grammatical errors. This is unintentional and the practitioner does try to identify and correct these, but some could still be present. Please do not hesitate to contact practitioner for clarification. All questions answered to patients satisfaction. Patient verbalized understanding of diagnosis and treatments explained. To call sooner prior to next visit it any questions/concerns arise. 07/07/2023 Elevated blood pressure reading (ICD-10 - R03.0) #Morbid obesity. 216.27 pounds, BMI 40.9. Reviewed comprehensive labs with patient as well as ceca scale. Weight is down 2 pounds since her last visit however this is predominantly fat-free mass that is decreased. Good total body water content. Discussed obesity medications in detail with patient. She had previously discussed compounded semaglutide with Dr. Mayorga on an every other week basis starting at 0.25 mg. She is interested in this but however would like to discuss further with her before starting. She has failed phentermine in the past. Discussed typical PA process at week 11. She will continue to work on increasing her exercise with a goal of 8000 steps a day. Continue to work towards increased protein intake of 80 g a day. Continue 80 ounces of water daily. Discussed importance of good quality sleep and stress management. She will call and let us know if she would like to move forward with compounded semaglutide. If she decides to will schedule nurse visit for 0.25 mg every other week for the first month and then follow-up with me. #Anemia. History of iron deficiency anemia previously on iron infusions. Reviewed labs which show mild anemia advised to follow-up with specialist. #Hypothyroidism. She did not tolerate levothyroxine. TSH is normal however on the higher end of normal. Advised to follow-up with PCP to discuss further options. #Elevated blood pressure. BP elevated in the office today advised to monitor at home and follow-up with PCP. #History of JESSICA. Advised to discuss with PCP he may benefit from repeat sleep study and treatment with CPAP if needed. The patient will continue exercise regimen with [...] Dictation was accomplished with the use of [employer] voice recognition software, prone to medical misidentifications and grammatical errors. This is unintentional and the practitioner does try to identify and correct these, but some could still be present. Please do not hesitate to contact practitioner for clarification. All questions answered to patients satisfaction. Patient verbalized understanding of diagnosis and treatments explained. To call sooner prior to next visit it any questions/concerns arise. 06/09/2023 BMI 40.0-44.9, adult (ICD-10 - Z68.41) Patient is here for weight management followup. We focused on significance of healthy lifestyle changes. We talked about need to track steps, work on portion control, read food labels, get adequate sleep, give adequate rest of the body, meditate, frequent nutritious meals including vegetables and healthy choices of meat and elimination of refined carbohydrates. We also talked about mindfulness and mindful eating. Particular focus was on elimination of refined carbohydrates portion control and above steps. Total time spent was 45 minutes with greater than 50% spent on counseling and coordinating care 07/07/2023 History of sleep apnea (ICD-10 - Z86.69) #Morbid obesity. 216.27 pounds, BMI 40.9. Reviewed comprehensive labs with patient as well as ceca scale. Weight is down 2 pounds since her last visit however this is predominantly fat-free mass that is decreased. Good total body water content. Discussed obesity medications in detail with patient. She had previously discussed compounded semaglutide with Dr. Mayorga on an every other week basis starting at 0.25 mg. She is interested in this but however would like to discuss further with her before starting. She has failed phentermine in the past. Discussed typical PA process at week 11. She will continue to work on increasing her exercise with a goal of 8000 steps a day. Continue to work towards increased protein intake of 80 g a day. Continue 80 ounces of water daily. Discussed importance of good quality sleep and stress management. She will call and let us know if she would like to move forward with compounded semaglutide. If she decides to will schedule nurse visit for 0.25 mg every other week for the first month and then follow-up with me. #Anemia. History of iron deficiency anemia previously on iron infusions. Reviewed labs which show mild anemia advised to follow-up with specialist. #Hypothyroidism. She did not tolerate levothyroxine. TSH is normal however on the higher end of normal. Advised to follow-up with PCP to discuss further options. #Elevated blood pressure. BP elevated in the office today advised to monitor at home and follow-up with PCP. #History of JESSICA. Advised to discuss with PCP he may benefit from repeat sleep study and treatment with CPAP if needed. The patient will continue exercise regimen with [...] Dictation was accomplished with the use of [employer] voice recognition software, prone to medical misidentifications and grammatical errors. This is unintentional and the practitioner does try to identify and correct these, but some could still be present. Please do not hesitate to contact practitioner for clarification. All questions answered to patients satisfaction. Patient verbalized understanding of diagnosis and treatments explained. To call sooner prior to next visit it any questions/concerns arise. 02/25/2024 Weight loss counseling, encounter for (ICD-10 - Z71.3) #Morbid obesity. 209 pounds, BMI 38.7. She is interested [...] previously on iron infusions. Will get updated labs. F/u pending results. #Hypothyroidism. She did not tolerate levothyroxine. Recheck labs. Follow up with PCP. #S/p Gastric sleeve procedure. He has had [...] Dictation was accomplished with the use of [employer] voice recognition software, prone to medical misidentifications [...] Dictation was accomplished with the use of [employer] voice recognition software, prone to medical misidentifications [...] Dictation was accomplished with the use of [employer] voice recognition software, prone to medical misidentifications and grammatical errors. This is unintentional and the practitioner does try to identify and correct these, but some could still be present. Please do not hesitate to contact practitioner for clarification. All questions answered to patients satisfaction. Patient verbalized understanding of diagnosis and treatments explained. To call sooner prior to next visit it any questions/concerns arise. 07/07/2023 S/P gastric sleeve procedure (ICD-10 - Z90.3) #Morbid obesity. 216.27 pounds, BMI 40.9. Reviewed comprehensive labs with patient as well as ceca scale. Weight is down 2 pounds since her last visit however this is predominantly fat-free mass that is decreased. Good total body water content. Discussed obesity medications in detail with patient. She had previously discussed compounded semaglutide with Dr. Mayorga on an every other week basis starting at 0.25 mg. She is interested in this but however would like to discuss further with her before starting. She has failed phentermine in the past. Discussed typical PA process at week 11. She will continue to work on increasing her exercise with a goal of 8000 steps a day. Continue to work towards increased protein intake of 80 g a day. Continue 80 ounces of water daily. Discussed importance of good quality sleep and stress management. She will call and let us know if she would like to move forward with compounded semaglutide. If she decides to will schedule nurse visit for 0.25 mg every other week for the first month and then follow-up with me. #Anemia. History of iron deficiency anemia previously on iron infusions. Reviewed labs which show mild anemia advised to follow-up with specialist. #Hypothyroidism. She did not tolerate levothyroxine. TSH is normal however on the higher end of normal. Advised to follow-up with PCP to discuss further options. #Elevated blood pressure. BP elevated in the office today advised to monitor at home and follow-up with PCP. #History of JESSICA. Advised to discuss with PCP he may benefit from repeat sleep study and treatment with CPAP if needed. The patient will continue exercise regimen with [...] Dictation was accomplished with the use of [employer] voice recognition software, prone to medical misidentifications [...] it any questions/concerns arise. PLAN OF TREATMENT Pending Test Test Name Order Date Hemoglobin A1c 02/25/2024 FERRITIN 03/17/2024 FERRITIN 04/21/2024 INSULIN 02/25/2024 IRON & TIBC 03/17/2024 IRON & TIBC 04/21/2024 TSH 04/21/2024 TSH 02/25/2024 VITAMIN B12 02/25/2024 CBC with Differential 04/21/2024 LIPID PANEL, STANDARD 02/25/2024 LIPID PANEL, STANDARD 12/31/2022 COMPREHENSIVE METABOLIC PANEL 02/25/2024 CBC (INCLUDES DIFF/PLT) 02/25/2024 HEMOGLOBIN A1c 12/31/2022 INSULIN 12/31/2022 VITAMIN D,25-OH,TOTAL,IA 02/25/2024 TSH+T3+Free T4+T3 Free 03/17/2024 Next Appt Details Provider Name:Marissa Bear, 0 05/11/2024 10:15:00 AM, [address], [address], Provider Name:Marissa Bear, 0 05/18/2024 08:15:00 AM, [address], [address], Provider Name:Marissa Bear, 0 06/15/2024 08:15:00 AM, 299 [facility], [address], [address], Insurance Providers Payer Name Payer Address Payer Phone Subscriber Number Group Number Insured Name Patient Relationship to Insured Coverage Start Date Coverage End Date [facility] [address] [place] [address] [phone] [id number] [facility] Zulema Lyman Self - patient is the insured 4 MEDICAL (GENERAL) HISTORY Medical History History ICD Code seasonal allergies weight change hemorrhoids thyroid disease anemia Surgical History Surgery Date(Month/Year) gastric bypass [place] Feb 2016 tubal ligation panniculectomy 2023
--- OUTSIDE RECORDS SUMMARY | 2024-05-10 06:06 | XMS_ITS ---
Author Organization [facility] Address [address] [place] [address] Care Team Providers Care Form Designer Name Role Phone CLAUDE CHANTELLEMOISÉS Unavailable Marissa Bear Unavailable [phone] REASON FOR VISIT [facility] PA Encounters Encounter Location Date Provider Diagnosis [address] [address] 03/24/2024 Marissa Padillacek PLAN OF TREATMENT Next Appt Details Provider Name:Marissa Bear, 0 05/11/2024 10:15:00 AM, [address], [address], [address], Provider Name:Marissa Bear, 0 05/18/2024 08:15:00 AM, [address], [address], [address], Provider Name:Marissa Reyesk, 0 06/15/2024 08:15:00 AM, [address], [address], [address], Progress Notes * Zulema KHOURYDOB: [birth year] (53 yo F)Acc No.[id number]:03/24/2024 Patient:??PENG Zulema :1970?Age:53 Y?Sex:Fe male Address:[address] [place] [address], [place] [address] * true * Date:??
[2024-05-10 06:19] LABS: MANUAL DIFF FLAG NO
[2024-05-10 07:22] LABS: Basophils Absolute Auto 0.1 X10*3/uL (0.0-0.2); Basophils Percent Auto 0.7 % (0-2); Eosinophils Percent Auto 0.6 % (0-4); Hematocrit 30.1 % (37.0-47.0); Hemoglobin 9.1 g/dl (12.0-16.0); Imm Gran Abs Auto 0.03 X10*3/uL (0.00-0.03); Imm Gran Pct Auto 0.4 % (0.0-0.4); Lymphocytes Absolute Auto 2.4 X10*3/uL (1.2-4.9); Lymphocytes Percent Auto 33.8 % (20-40); Mean Corpuscular HGB Conc 30.2 g/dl (31.0-35.0); Mean Corpuscular Volume 72.9 fL (80.0-98.0); Mean Platelet Volume 9.9 fL (9.4-12.3); Monocytes Absolute Auto 0.6 X10*3/uL (0.1-1.2); Neutrophils Percent Auto 55.5 % (45-73); Platelet Count 311 X10*3/uL (160-400); Red Blood Count 4.13 X10*6/uL (4.20-5.50); Red Cell Distribution Width 17.3 % (11.0-16.0); White Blood Count 7.1 X10*3/uL (4.8-10.8)
[2024-05-10 08:21] LABS: Iron 17 mcg/dL (30-160); Percent Iron Saturation 5 % (15-50); Total Iron Binding Capacity 374 mcg/dL (228-428); Unsaturated Iron Binding 357 ug/dL
[2024-05-10 08:37] LABS: Ferritin 8 ng/mL (10-250); Thyroid Stimulating Hormone 1.79 uIU/mL (0.32-4.0)
== END 2024-05-10 06:04 | disposition home or self-care (01) ==
LOC: HO.LAB 06:03
PROVIDERS: Visit Provider Physician Assistant
DX: D64.9 Anemia, unspecified (principal); Z13.29 Encounter for screening for other suspected endocrine disorder
CPT/HCPCS: 36415; 82728; 83540; 84443; 85025

== ENCOUNTER 2024-08-24 07:30 | Outpatient (RCR) | payer BC, SELFPAY ==
[2024-07-20 07:26] VITALS: BP 144/85; PULSE 54; RESP 14; TEMP 36.6; O2SAT 98
[2024-07-20] MEDS: Iron Sucrose Complex 200 MG/10 ML VIAL IVPUSH (08:01)
[2024-07-27 08:08] VITALS: BP 123/48; PULSE 60; RESP 20; TEMP 36.3; O2SAT 99
[2024-07-27] MEDS: Iron Sucrose Complex 200 MG 440 MG IV (08:17)
[2024-08-03 07:19] VITALS: BP 172/67; PULSE 54; RESP 16; TEMP 36.3; O2SAT 100
[2024-08-03] MEDS: Iron Sucrose Complex 200 MG 440 MG IV (07:26)
[2024-08-10 07:17] VITALS: BP 149/84; PULSE 58; RESP 16; TEMP 36.7; O2SAT 99
[2024-08-10] MEDS: Iron Sucrose Complex 200 MG 440 MG IV (07:22)
[2024-08-17 07:34] VITALS: BP 140/88; PULSE 65; RESP 16; TEMP 36.4; O2SAT 98
[2024-08-17] MEDS: Iron Sucrose Complex 200 MG 440 MG IV (07:38)
[2024-08-24 07:32] VITALS: BP 138/90; PULSE 62; RESP 16; TEMP 36.6; O2SAT 97
[2024-08-24] MEDS: Iron Sucrose Complex 200 MG 440 MG IV (07:44)
== END 2024-08-24 08:08 | disposition home or self-care (01) ==
LOC: HO.INF 07:30
PROVIDERS: Visit Provider Internal Medicine
DX: D50.9 Iron deficiency anemia, unspecified (principal)
CPT/HCPCS: 96365; 96374; J1756

== ENCOUNTER 2024-09-02 12:56 | Outpatient (REF) | payer BC, SELFPAY ==
--- OUTSIDE RECORDS SUMMARY | 2024-09-02 13:17 | XMS_ITS | Patient Health Record ---
Author Organization [facility] Address [address] [place] [address] Care Team Providers Care Sheet Rock Taper Name Role Phone Derek Florence MDneth Primary Care Provider Rosanne Britt Unavailable [phone] Allergies Allergen (clinical drug ingredient) Drug/Non Drug Allergy documented on EMR Reaction Allergy Type Onset Date Status Adhesive Unknown Allergy Active Reason For Referral No Information Medications Medication SIG (Take, Route, Frequency, Duration) Notes Start Date End Date Status Vitamin A 3 MG (44461 UT) TAKE 1 CAPSULE BY MOUTH EVERY DAY Oral for 90 Active Levothyroxine Sodium 25 MCG 1 tablet in the morning on an empty stomach Orally Once a day for 30 day(s) Active Loratadine 10 MG TAKE 1 TABLET BY CONY TH EVERY DAY Oral for 90 Active Loratadine 10 MG 1 tablet Orally Once a day for 30 day(s) Active Vitamin A Active Social History Tobacco Use: Social History Observation Description Date Details (start date - stop date) Former Smoker NA - NA Tobacco Use/Smoking Question Answer Notes Are you a: former smoker Additional Findings: Tobacco Non-User Current no n-smoker Alcohol Screen Question Answer Notes Did you have a drink containing alcohol in the p ast year? No Points 0 Interpretation Negative Tobacco use other than smoking: Question Answer Notes Are you an other tobacco user? No Problems Problem Type SNOMED Code ICD Code Onset Dates Problem Status W/U Status Risk Notes Problem [id number] Hallux valgus (acquired), left foot (M20.12) Active confirmed Plan Of Treatment Pending Test Test Name Order Date X ray : Foot, left 3V 12/06/2021 Insurance Providers Payer Name Payer Address Payer Phone Subscriber Number Group Number Insured Name Patient Relationship to Insured Coverage Start Date Coverage End Date [facility] [address] [place] [address] [phone] [id number] Toy Lyman Spouse - patient is the spouse of the insured Medical (General) History Medical History History ICD Code Anemia asthma Chicken pox Surgical History Surgery Date(Month/Year) bariatric 03/03/2015 tubal ligation 1999
--- OUTSIDE RECORDS SUMMARY | 2024-09-02 13:17 | XMS_ITS ---
Author Organization [facility] Address [address] [place] [address] Care Team Providers Care Sliding Joint Maker Name Role Phone MOISÉS WALDROP Unavailable Marissa Bear Unavailable [phone] MEDICATIONS Medication SIG (Take, Route, Frequency, Duration) Notes Start Date End Date Status Progesterone 200 MG TAKE 1 CAPSULE BY [facility] AT BEDTIME ON DAYS 1 THROUGH 12 OF EACH MONTH Oral for 28 Days Active Vitamin C 500 MG as directed Orally Active Estradiol 0.0375 MG/24HR Transdermal for 28 Days Active Probiotic 250 MG as directed Orally Active Calcium 500 MG 1 tablet with meals Orally Twice a day Active Zepbound 2.5 MG/0.5ML inject 2.5 Subcuta neous once a week for 30 days 05/11/2024 Not-Taki ng Magnesium 200 MG 2 tablets with a filiberto l Orally Once a day Active Zinc 100 MG 1 tablet Orally Once a day Active Contrave 8-90 MG 2 tablets Orally twi ce a day for 30 days Active Vitamin A 2400 MCG (8000 UT) one tablet Orally twice a day for 30 days Active Vitamin A 2400 MCG (8000 UT) TAKE 1 CAPSULE BY MOUTH TWICE A DAY DIRECTED for 90 days Active Encounters Encounter Location Date Provider Diagnosis [address] [place] [id number] 08/01/2024 Marissa Svrnevink Morbid obesity E66.0 1 ; BMI 39.0-39.9,adult Z68.39 ; Anemia, unspecified type D64.9 ; Hypothyroidism, unspecified type E03.9 ; S/P gastric sleeve procedure Z90.3 and Weight loss counseling, encounter for Z71.3 ASSESSMENTS Encounter Date Diagnosis Assessment Notes Treatment Notes Treatment Clinical Notes Section Notes 08/01/2024 Morbid obesity (ICD-10 - E66.01) #Morbid obesity. 07/04/24: 214.3 pounds, BMI 39.7. She is currently on Contrave 1 pill a day. Her appetite is sufficiently suppressed with just 1 pill and will continue at this current dose. Continue to work on protein intake and regular exercise including resistance training. Follow-up with me in 1 month sooner with any concerns. Unfortunately her insurance does not cover GLP-1 medication. #Anemia. History of iron deficiency anemia. awaiting transfusion- she will call to reschedule today. #Hypothyroidism. She did not tolerate levothyroxine. TSH has been in range. #S/p Gastric sleeve procedure. She has had some weight regain since. S/p panniculectomy. The patient will continue exercise regimen with [...] Dictation was accomplished with the use of [employer] voice recognition software, prone to medical misidentifications and grammatical errors. This is unintentional and the practitioner does try to identify and correct these, but some could still be present. Please do not hesitate to contact practitioner for clarification. All questions answered to patients satisfaction. Patient verbalized understanding of diagnosis and treatments explained. To call sooner prior to next visit it any questions/concerns arise. 08/01/2024 BMI 39.0-39.9,adul t (ICD-10 - Z68.39) #Morbid obesity. 07/04/24: 214.3 pounds, BMI 39.7. She is currently on Contrave 1 pill a day. Her appetite is sufficiently suppressed with just 1 pill and will continue at this current dose. Continue to work on protein intake and regular exercise including resistance training. Follow-up with me in 1 month sooner with any concerns. Unfortunately her insurance does not cover GLP-1 medication. #Anemia. History of iron deficiency anemia. awaiting transfusion- she will call to reschedule today. #Hypothyroidism. She did not tolerate levothyroxine. TSH has been in range. #S/p Gastric sleeve procedure. She has had some weight regain since. S/p panniculectomy. The patient will continue exercise regimen with [...] Dictation was accomplished with the use of [employer] voice recognition software, prone to medical misidentifications and grammatical errors. This is unintentional and the practitioner does try to identify and correct these, but some could still be present. Please do not hesitate to contact practitioner for clarification. All questions answered to patients satisfaction. Patient verbalized understanding of diagnosis and treatments explained. To call sooner prior to next visit it any questions/concerns arise. 08/01/2024 Anemia, unspecified type (ICD-10 - D64.9) #Morbid obesity. 07/04/24: 214.3 pounds, BMI 39.7. She is currently on Contrave 1 pill a day. Her appetite is sufficiently suppressed with just 1 pill and will continue at this current dose. Continue to work on protein intake and regular exercise including resistance training. Follow-up with me in 1 month sooner with any concerns. Unfortunately her insurance does not cover GLP-1 medication. #Anemia. History of iron deficiency anemia. awaiting transfusion- she will call to reschedule today. #Hypothyroidism. She did not tolerate levothyroxine. TSH has been in range. #S/p Gastric sleeve procedure. She has had some weight regain since. S/p panniculectomy. The patient will continue exercise regimen with [...] Dictation was accomplished with the use of [employer] voice recognition software, prone to medical misidentifications and grammatical errors. This is unintentional and the practitioner does try to identify and correct these, but some could still be present. Please do not hesitate to contact practitioner for clarification. All questions answered to patients satisfaction. Patient verbalized understanding of diagnosis and treatments explained. To call sooner prior to next visit it any questions/concerns arise. 08/01/2024 Hypothyroidism , unspecified type (ICD-10 - E03.9) #Morbid obesity. 07/04/24: 214.3 pounds, BMI 39.7. She is currently on Contrave 1 pill a day. Her appetite is sufficiently suppressed with just 1 pill and will continue at this current dose. Continue to work on protein intake and regular exercise including resistance training. Follow-up with me in 1 month sooner with any concerns. Unfortunately her insurance does not cover GLP-1 medication. #Anemia. History of iron deficiency anemia. awaiting transfusion- she will call to reschedule today. #Hypothyroidism. She did not tolerate levothyroxine. TSH has been in range. #S/p Gastric sleeve procedure. She has had some weight regain since. S/p panniculectomy. The patient will continue exercise regimen with [...] Dictation was accomplished with the use of [employer] voice recognition software, prone to medical misidentifications and grammatical errors. This is unintentional and the practitioner does try to identify and correct these, but some could still be present. Please do not hesitate to contact practitioner for clarification. All questions answered to patients satisfaction. Patient verbalized understanding of diagnosis and treatments explained. To call sooner prior to next visit it any questions/concerns arise. 08/01/2024 S/P gastric sleeve procedure (ICD-10 - Z90.3) #Morbid obesity. 07/04/24: 214.3 pounds, BMI 39.7. She is currently on Contrave 1 pill a day. Her appetite is sufficiently suppressed with just 1 pill and will continue at this current dose. Continue to work on protein intake and regular exercise including resistance training. Follow-up with me in 1 month sooner with any concerns. Unfortunately her insurance does not cover GLP-1 medication. #Anemia. History of iron deficiency anemia. awaiting transfusion- she will call to reschedule today. #Hypothyroidism. She did not tolerate levothyroxine. TSH has been in range. #S/p Gastric sleeve procedure. She has had some weight regain since. S/p panniculectomy. The patient will continue exercise regimen with [...] Dictation was accomplished with the use of [employer] voice recognition software, prone to medical misidentifications and grammatical errors. This is unintentional and the practitioner does try to identify and correct these, but some could still be present. Please do not hesitate to contact practitioner for clarification. All questions answered to patients satisfaction. Patient verbalized understanding of diagnosis and treatments explained. To call sooner prior to next visit it any questions/concerns arise. 08/01/2024 Weight loss counseling, encounter for (ICD-10 - Z71.3) #Morbid obesity. 07/04/24: 214.3 pounds, BMI 39.7. She is currently on Contrave 1 pill a day. Her appetite is sufficiently suppressed with just 1 pill and will continue at this current dose. Continue to work on protein intake and regular exercise including resistance training. Follow-up with me in 1 month sooner with any concerns. Unfortunately her insurance does not cover GLP-1 medication. #Anemia. History of iron deficiency anemia. awaiting transfusion- she will call to reschedule today. #Hypothyroidism. She did not tolerate levothyroxine. TSH has been in range. #S/p Gastric sleeve procedure. She has had some weight regain since. S/p panniculectomy. The patient will continue exercise regimen with [...] Dictation was accomplished with the use of [employer] voice recognition software, prone to medical misidentifications [...] Orally twice a day for 30 days Next Appt Details Provider Name:Marissa Padillanevineloy, 0 09/13/2024 10:00:00 AM, [address] [place] [address], [phone], Provider Name:Marissa Bear, 0 11/21/2024 09:30:00 AM, [facility], [address], [phone], Progress Notes * Zulema KHOURYDOB: [birth year] (53 yo F)Acc No.[id number]:08/01/2024 Patient:??Zulema KHOURY Provider:??Marissa Bear PA-C :1970?Age:53 Y?Sex:Fe male Date:08/01/2024 Address:[address] [place] [address] [id number] Subjective: * Chief Complaints: * ? * HPI: ?Constitutional:? Zulema is a 53-year-old [...] failed this due to palpitations. She is currently on Contrave, one pill a day. Her appetite was being suppressed too much and she was instructed to stay at one pill a day at her last visit. She did just recently start hormone replacement therapy with her racking technician and has noticed improvement of her menopausal symptoms. She also has a history of anemia and was scheduled for a transfusion however that had to be rescheduled. She will follow- up on that today. Exercise has been down as she sprained her ankle recently and is slowly recovering.She is consistently getting about 60 g of protein a day. She finds it harder to get more than that. ?Highest weight: 283 ?Lowest weight: 155 (post gastric surgery) ?Current weight: 214.3, BMI 39.7 ?Weight last visit: 217.4, BMI 40.3 ?Walking 6 k steps/day ?Updated SECA reviewed today. Weight Is down 3 pounds. Fat mass is down 2.5 pound muscle mass is down1 pound. * ROS:?All Other Systems:?Review of Systems (ROS)??All others negative except those mentioned in HPI.? * Medical History:?? * Medications:??Taking Contrav e 8-90 MG Tablet Extended Release 12 Hour 2 tablets Orally twice a day , Taking Magnesium 200 MG Tablet 2 tablets with a meal Orally Once a day , Taking Zinc 100 MG Tablet 1 tablet Orally Once a day , Taking Probiotic 250 MG Capsule as directed Orally , Taking Calcium 500 MG Tablet 1 tablet with meals Orally Twice a day , Taking Vitamin C 500 MG Capsule as directed Orally , Taking Estradiol 0.0375 MG/24HR Patch Weekly Transdermal , Taking Progesterone 200 MG Capsule TAKE 1 CAPSULE BY MOUTH AT BEDTIME ON DAYS 1 THROUGH 12 OF EACH MONTH Oral , Taking Vitamin A 2400 MCG (8000 UT) Capsule TAKE 1 CAPSULE BY MOUTH TWICE A DAY DIRECTED , Taking Vitamin A 2400 MCG (8000 UT) Tablet one tablet Orally twice a day , Not-Taking Zepbound 2.5 MG/0.5ML Solution Auto-injector inject 2.5 Subcutaneous once a week Objective: * Physical Examination:?General: Well appearing, well nourished, [...] counseling, encounter for - Z71.3?? #Morbid obesity. 07/04/24: 214.3 pounds, BMI 39.7. She is currently on Contrave 1 pill a day. Her appetite is sufficiently suppressed with just 1 pill and will continue at this current dose. Continue to work on protein intake and regular exercise including resistance training. Follow-up with me in 1 month sooner with any concerns. Unfortunately her insurance does not cover GLP-1 medication. #Anemia. History of iron deficiency anemia. awaiting transfusion- she will call to reschedule today. #Hypothyroidism. She did not tolerate levothyroxine. TSH has been in range. #S/p Gastric sleeve procedure. She has had some weight regain since. S/p panniculectomy. The patient will continue exercise regimen with [...] Dictation was accomplished with the use of [employer] voice recognition software, prone to medical misidentifications [...] any questions/concerns arise. Plan: * Treatment: * Images: Billing Information: * Visit Code:?? * Procedure Codes:?? * Sign off status: Pending * Provider:??Marissa Bear PA-C Date:??07/04 History and Physical Notes * HPI (History [...] failed this due to palpitations. She is currently on Contrave, one pill a day. Her appetite was being suppressed too much and she was instructed to stay at one pill a day at her last visit. She did just recently start hormone replacement therapy with her racking technician and has noticed improvement of her menopausal symptoms. She also has a history of anemia and was scheduled for a transfusion however that had to be rescheduled. She will follow-up on that today. Exercise has been down as she sprained her ankle recently and is slowly recovering.She is consistently getting about 60 g of protein a day. She finds it harder to get more than that. Highest weight: 283 Lowest weight: 155 (post gastric surgery) Current weight: 214.3, BMI 39.7 Weight last visit: 217.4, BMI 40.3 Walking 6 k steps/day Updated SECA reviewed today. Weight Is down 3 pounds. Fat mass is down 2.5 pound muscle mass is down1 pound. Physical Examination Category Sub-Category Detail Notes Section [...]
--- OUTSIDE RECORDS SUMMARY | 2024-09-02 13:18 | XMS_ITS | Patient Health Record ---
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 Name Role Phone MOISÉS WALDROP Unavailable ANAYELI MAYORGA Unavailable [phone] Marissa Bear Unavailable [phone] ALLERGIES Allergen (clinical drug ingredient) Drug/Non Drug Allergy documented on EMR Reaction Allergy Type Onset Date Status Shellfish (FN) Shellfish-derived Products Unknown Drug Allergy Active RESULTS Component Value Reference Range Notes THYROID STIMULATING HORMONE Reviewed date:07/18/2024 12:57:31 PM Interpretation: Performing Lab: Notes/Report: TSH 2.92 0.40-4.00 mcIU/mL REASON FOR REFERRAL Reason Sleep Medicine Servi destiny; Sleep consult., snoring; r/o sleep apnea Diagnosis 1 Snoring (R06.83) Diagnosis 2 Sleep apnea in adult (G47.30) Referral Organization [facility] 119 Referring Provider First Name Marissa Referring Provider Last Name Svrcek Referring Provider Speciality Internal M edicine Referred Provider Specialty Sleep Medici ne General Notes [address] [facility].20 8, (p) [phone], (f) [phone] Clinical Notes Suly Gibson 11:08:08 AM > referral manually faxed with attachments Referral Priority Routine MEDICATIONS Medication SIG (Take, Route, Frequency, Duration) Notes Start Date End Date Status Zepbound 2.5 MG/0.5ML inject 2.5 Subcuta neous once a week for 30 days 05/11/2024 Not-Taki ng Magnesium 200 MG 2 tablets with a filiberto l Orally Once a day Active Vitamin A 2400 MCG (8000 UT) one tablet Orally twice a day for 30 days Active Progesterone 200 MG TAKE 1 CAPSULE BY [facility] AT BEDTIME ON DAYS 1 THROUGH 12 OF EACH MONTH Oral for 28 Days Active Vitamin A 2400 MCG (8000 UT) TAKE 1 CAPSULE BY MOUTH TWICE A DAY DIRECTED for 90 days Active Contrave 8-90 MG 2 tablets Orally twi ce a day for 30 days Active Estradiol 0.0375 MG/24HR Transdermal for 28 Days Active Calcium 500 MG 1 tablet with meals Orally Twice a day Active Vitamin C 500 MG as directed Orally Active Zinc 100 MG 1 tablet Orally Once a day Active Probiotic 250 MG as directed Orally Active PROBLEMS Problem Type ICD Code Onset Dates Problem Status W/U Status Risk SNOMED Code Notes Problem Snoring (R06.83) Active confirmed 46340 001 Problem Morbid obesity (E66.01) Active confirmed 260359099 Problem Hypothyroidism, unspecified type (E03.9) Active confirmed Hypothyroidism (20728791) Problem Anemia, unspecified type (D64.9) Active confirmed 866280281 Problem Vitamin A deficiency (E50.9) Active confirmed 58261467 Problem BMI 40.0-44.9, adult (Z68.41) Active confirmed 197203322 Problem Obesity (BMI 30-39.9) (E66.9) Active confirmed Obesity (240777711) Problem BMI 37.0-37.9, adult (Z68.37) Active confirmed Obese class I I (080218005131937) Problem Sleep apnea in adult (G47.30) Active confirmed Sleep apnea (97549602) Problem BMI 39.0-39.9,adult (Z68.39) Active confirmed 553992621 Problem BMI 38.0-38.9,adult (Z68.38) Active confirmed Obese class II (960281817246588) Problem Screening for cardiovascular condition (Z13.6) Active confirmed Screening for cardiovascular system disease (733416648) Problem Thyroid disorder screen (Z13.29) Active confirmed Thyroid diso rder screening (130385121) Problem Amenorrhea (N91.2) Active confirmed Amenorrhea (45363722) Problem H/O gastric sleeve (Z90.3) Active confirmed Gastric sleev e (physical object) (514404943) Problem Elevated lipids (E78.5) Active confirmed Elevated fastin g lipid profile (158763847660) Problem S/P gastric sleeve procedure (Z90.3) Active confirmed 854508238220105 Problem Anemia (D64.9) Active confirmed Anemia (372552366) Problem Hypothyroid (E03.9) Active confirmed Hypothyroid (65006929) Problem Vitamin D2 deficiency (E55.9) Active confirmed Vitamin D deficiency (46571902) VITAL SIGNS Heart Rate 67 /min 08/11/2024 Oximetry 98 % 08/11/2024 Blood pressure diastolic 78 mm Hg 08/11/2024 Height 61.75 in 08/11/2024 Blood pressure systolic 124 mm Hg 08/11/2024 Weight 213 lbs 08/11/2024 BMI 39.27 kg/m2 08/11/2024 Encounters Encounter Location Date Provider Diagnosis [address] [place] [id number] 05/18/2024 Marissa Svrcek [address] [address] 06/22/2024 Marissa Svrcek [address] [address] 08/01/2024 Marissa Svrcek Morbid obesity E66.0 1 ; BMI 39.0-39.9,adult Z68.39 ; Anemia, unspecified type D64.9 ; Hypothyroidism, unspecified type E03.9 ; S/P gastric sleeve procedure Z90.3 and Weight loss counseling, encounter for Z71.3 [address] [address] 02/25/2024 Marissa Svrcek Morbid obesity E66.0 1 ; BMI 38.0-38.9,adult Z68.38 ; Anemia, unspecified type D64.9 ; Hypothyroidism, unspecified type E03.9 ; S/P gastric sleeve procedure Z90.3 and Weight loss counseling, encounter for Z71.3 [address] [address] 03/17/2024 Marissa Svrcek Hypothyroidism, unspecified type E03.9 ; Anemia, unspecified type D64.9 ; S/P gastric sleeve procedure Z90.3 and Morbid obesity E66.01 [address] [address] 03/24/2024 Marissa Svrcek Morbid obesity E66.0 1 ; BMI 39.0-39.9,adult Z68.39 ; Anemia, unspecified type D64.9 ; Hypothyroidism, unspecified type E03.9 ; S/P gastric sleeve procedure Z90.3 and Weight loss counseling, encounter for Z71.3 Suite [facility] [address] 04/21/2024 Marissa Svrcek Morbid obesity E66.0 1 ; BMI 40.0-44.9, adult Z68.41 ; Anemia, unspecified type D64.9 ; Hypothyroidism, unspecified type E03.9 ; S/P gastric sleeve procedure Z90.3 and Weight loss counseling, encounter for Z71.3 [facility] [address] 05/11/2024 ANAYELI MAYORGA Hypothyroidism, unspecified type E03.9 ; Morbid obesity E66.01 ; Anemia, unspecified type D64.9 ; S/P gastric sleeve procedure Z90.3 and BMI 40.0-44.9, adult Z68.41 [address] 07/04/2024 Marissa Svrcek Morbid obesity E66.0 1 ; BMI 39.0-39.9,adult Z68.39 ; Anemia, unspecified type D64.9 ; Hypothyroidism, unspecified type E03.9 ; S/P gastric sleeve procedure Z90.3 and Weight loss counseling, encounter for Z71.3 [address] 07/18/2024 Marissa Svrcek Anemia, unspecified type D64.9 ; S/P gastric sleeve procedure Z90.3 and Hypothyroidism, unspecified type E03.9 [place] [address] 08/11/2024 Marissa Svrcek Morbid obesity E66.0 1 ; BMI 39.0-39.9,adult Z68.39 ; Anemia, unspecified type D64.9 ; Hypothyroidism, unspecified type E03.9 ; S/P gastric sleeve procedure Z90.3 ; Snoring R06.83 and Weight loss counseling, encounter for Z71.3 [address] [facility] [address] [place] [address] 03/24/[address] [facility] [address] [facility] [address] [place] [address] 07/12/[address] [facility] [address] [facility] [address] [place] [address] 08/11/2024 Marissa Marianela [address] [facility] [address] [facility] [address] [place] [address] 07/12/2024 Marissainder Bear Vitamin A deficiency E50.9 ASSESSMENTS Encounter Date Diagnosis Assessment Notes Treatment Notes Treatment Clinical Notes Section Notes 02/25/2024 Morbid obesity (ICD-10 - E66.01) #Morbid [...] Dictation was accomplished with the use of Med ePad voice recognition software, prone to medical misidentifications [...] Dictation was accomplished with the use of Med ePad voice recognition software, prone to medical misidentifications [...] Dictation was accomplished with the use of Med ePad voice recognition software, prone to medical misidentifications [...] Dictation was accomplished with the use of Med ePad voice recognition software, prone to medical misidentifications [...] Dictation was accomplished with the use of Med ePad voice recognition software, prone to medical misidentifications [...] Dictation was accomplished with the use of Med ePad voice recognition software, prone to medical misidentifications [...] Dictation was accomplished with the use of Med ePad voice recognition software, prone to medical misidentifications and grammatical errors. This is unintentional and the practitioner does try to identify and correct these, but some could still be present. Please do not hesitate to contact practitioner for clarification. All questions answered to patients satisfaction. Patient verbalized understanding of diagnosis and treatments explained. To call sooner prior to next visit it any questions/concerns arise. 05/11/2024 Morbid obesity (ICD-10 - E66.01) Patient is [...] focus was on elimination of refined carbohydrates and portion control Total time spent was 30 minutes with greater than 50% spent on counseling and coordinating care 05/11/2024 Hypothyroidism , unspecified type (ICD-10 - E03.9) [...] focus was on elimination of refined carbohydrates and portion control Total time spent was 30 minutes with greater than 50% spent on counseling and coordinating care 07/04/2024 Morbid obesity (ICD-10 - E66.01) #Morbid obesity. [...] Dictation was accomplished with the use of Med ePad voice recognition software, prone to medical misidentifications and grammatical errors. This is unintentional and the practitioner does try to identify and correct these, but some could still be present. Please do not hesitate to contact practitioner for clarification. All questions answered to patients satisfaction. Patient verbalized understanding of diagnosis and treatments explained. To call sooner prior to next visit it any questions/concerns arise. 07/04/2024 BMI 39.0-39.9,adul t (ICD-10 - Z68.39) #Morbid [...] Dictation was accomplished with the use of Med ePad voice recognition software, prone to medical misidentifications and grammatical errors. This is unintentional and the practitioner does try to identify and correct these, but some could still be present. Please do not hesitate to contact practitioner for clarification. All questions answered to patients satisfaction. Patient verbalized understanding of diagnosis and treatments explained. To call sooner prior to next visit it any questions/concerns arise. 07/12/2024 Vitamin A deficiency (ICD-10 - E50.9) 07/18/2024 Anemia, unspecified type (ICD-10 - D64.9) #Iron deficiency anemia. Most recent labs show hemoglobin 8.9 hematocrit 28.5. Has seen heme. She is awaiting transfusion and will follow up with them today. #Hypothyroidism. Will get updated labs follow-up pending results. #Status post gastric sleeve. Currently on vitamin A supplement. Discussed importance of monitoring labs. Will go today and follow-up pending results. Case discussed with collaborating physician Osmany who reviewed the assessment and plan. Chart, medications, labs, vital signs reviewed. Dictation was accomplished with the use of Med ePad voice recognition software, prone to medical misidentifications [...] next visit it any questions/concerns arise. 08/01/2024 Morbid obesity (ICD-10 - E66.01) #Morbid [...] Dictation was accomplished with the use of Med ePad voice recognition software, prone to medical misidentifications [...] Dictation was accomplished with the use of Med ePad voice recognition software, prone to medical misidentifications and grammatical errors. This is unintentional and the practitioner does try to identify and correct these, but some could still be present. Please do not hesitate to contact practitioner for clarification. All questions answered to patients satisfaction. Patient verbalized understanding of diagnosis and treatments explained. To call sooner prior to next visit it any questions/concerns arise. 08/11/2024 Morbid obesity (ICD-10 - E66.01) #Morbid obesity. 08/11/24: 213.7, BMI 39.6 Weight down 1 pound since last visit. She is currently on Contrave 1 pill a day. She did not tolerate increased dose of contrave. Will resubmit PA for Zepbound. She is an excellent candidate. If denied, will continue contrave 1 pill/day. Continue to work on protein intake and regular exercise including resistance training. Follow-up with me in 1 month sooner with any concerns. #Anemia. History of iron deficiency anemia. Now getting weekly infusions. #Hypothyroidism. Repeat TSH in range. #S/p Gastric sleeve procedure. She has had some weight regain since. S/p panniculectomy. #Snoring. High clinical suspicion for sleep apnea. WIll refer for sleep study. She would be an excellent candidate for Zepbound. The patient will continue exercise regimen with [...] Dictation was accomplished with the use of Med ePad voice recognition software, prone to medical misidentifications and grammatical errors. This is unintentional and the practitioner does try to identify and correct these, but some could still be present. Please do not hesitate to contact practitioner for clarification. All questions answered to patients satisfaction. Patient verbalized understanding of diagnosis and treatments explained. To call sooner prior to next visit it any questions/concerns arise. 08/11/2024 BMI 39.0-39.9,adul t (ICD-10 - Z68.39) #Morbid obesity. 08/11/24: 213.7, BMI 39.6 Weight down 1 pound since last visit. She is currently on Contrave 1 pill a day. She did not tolerate increased dose of contrave. Will resubmit PA for Zepbound. She is an excellent candidate. If denied, will continue contrave 1 pill/day. Continue to work on protein intake and regular exercise including resistance training. Follow-up with me in 1 month sooner with any concerns. #Anemia. History of iron deficiency anemia. Now getting weekly infusions. #Hypothyroidism. Repeat TSH in range. #S/p Gastric sleeve procedure. She has had some weight regain since. S/p panniculectomy. #Snoring. High clinical suspicion for sleep apnea. WIll refer for sleep study. She would be an excellent candidate for Zepbound. The patient will continue exercise regimen with [...] Dictation was accomplished with the use of Med ePad voice recognition software, prone to medical misidentifications [...] Dictation was accomplished with the use of Med ePad voice recognition software, prone to medical misidentifications and grammatical errors. This is unintentional and the practitioner does try to identify and correct these, but some could still be present. Please do not hesitate to contact practitioner for clarification. All questions answered to patients satisfaction. Patient verbalized understanding of diagnosis and treatments explained. To call sooner prior to next visit it any questions/concerns arise. 08/11/2024 Anemia, unspecified type (ICD-10 - D64.9) #Morbid obesity. 08/11/24: 213.7, BMI 39.6 Weight down 1 pound since last visit. She is currently on Contrave 1 pill a day. She did not tolerate increased dose of contrave. Will resubmit PA for Zepbound. She is an excellent candidate. If denied, will continue contrave 1 pill/day. Continue to work on protein intake and regular exercise including resistance training. Follow-up with me in 1 month sooner with any concerns. #Anemia. History of iron deficiency anemia. Now getting weekly infusions. #Hypothyroidism. Repeat TSH in range. #S/p Gastric sleeve procedure. She has had some weight regain since. S/p panniculectomy. #Snoring. High clinical suspicion for sleep apnea. WIll refer for sleep study. She would be an excellent candidate for Zepbound. The patient will continue exercise regimen with [...] Dictation was accomplished with the use of Med ePad voice recognition software, prone to medical misidentifications and grammatical errors. This is unintentional and the practitioner does try to identify and correct these, but some could still be present. Please do not hesitate to contact practitioner for clarification. All questions answered to patients satisfaction. Patient verbalized understanding of diagnosis and treatments explained. To call sooner prior to next visit it any questions/concerns arise. 07/18/2024 S/P gastric sleeve procedure (ICD-10 - Z90.3) #Iron deficiency anemia. Most recent labs show hemoglobin 8.9 hematocrit 28.5. Has seen heme. She is awaiting transfusion and will follow up with them today. #Hypothyroidism. Will get updated labs follow-up pending results. #Status post gastric sleeve. Currently on vitamin A supplement. Discussed importance of monitoring labs. Will go today and follow-up pending results. Case discussed with collaborating physician Osmany who reviewed the assessment and plan. Chart, medications, labs, vital signs reviewed. Dictation was accomplished with the use of Med ePad voice recognition software, prone to medical misidentifications and grammatical errors. This is unintentional and the practitioner does try to identify and correct these, but some could still be present. Please do not hesitate to contact practitioner for clarification. All questions answered to patients satisfaction. Patient verbalized understanding of diagnosis and treatments explained. To call sooner prior to next visit it any questions/concerns arise. 07/04/2024 Anemia, unspecified type (ICD-10 - D64.9) #Morbid [...] Dictation was accomplished with the use of Med ePad voice recognition software, prone to medical misidentifications and grammatical errors. This is unintentional and the practitioner does try to identify and correct these, but some could still be present. Please do not hesitate to contact practitioner for clarification. All questions answered to patients satisfaction. Patient verbalized understanding of diagnosis and treatments explained. To call sooner prior to next visit it any questions/concerns arise. 05/11/2024 Anemia, unspecified type (ICD-10 - D64.9) Patient is here for weight management followup. [...] focus was on elimination of refined carbohydrates and portion control Total time spent was 30 minutes with greater than 50% spent on counseling and coordinating care 03/24/2024 Anemia, unspecified type (ICD-10 - D64.9) [...] Dictation was accomplished with the use of Med ePad voice recognition software, prone to medical misidentifications [...] Dictation was accomplished with the use of Med ePad voice recognition software, prone to medical misidentifications [...] Dictation was accomplished with the use of Med ePad voice recognition software, prone to medical misidentifications [...] Dictation was accomplished with the use of Med ePad voice recognition software, prone to medical misidentifications [...] next visit it any questions/concerns arise. 02/25/2024 Hypothyroidism , unspecified type (ICD-10 - [...] Dictation was accomplished with the use of Med ePad voice recognition software, prone to medical misidentifications [...] Dictation was accomplished with the use of Med ePad voice recognition software, prone to medical misidentifications [...] Dictation was accomplished with the use of Med ePad voice recognition software, prone to medical misidentifications [...] Dictation was accomplished with the use of Med ePad voice recognition software, prone to medical misidentifications and grammatical errors. This is unintentional and the practitioner does try to identify and correct these, but some could still be present. Please do not hesitate to contact practitioner for clarification. All questions answered to patients satisfaction. Patient verbalized understanding of diagnosis and treatments explained. To call sooner prior to next visit it any questions/concerns arise. 05/11/2024 S/P gastric sleeve procedure (ICD-10 - Z90.3) Patient is here for weight management followup. [...] focus was on elimination of refined carbohydrates and portion control Total time spent was 30 minutes with greater than 50% spent on counseling and coordinating care 07/04/2024 Hypothyroidism , unspecified type (ICD-10 - E03.9) [...] Dictation was accomplished with the use of Med ePad voice recognition software, prone to medical misidentifications [...] Dictation was accomplished with the use of [employer] voice recognition software, prone to medical misidentifications and grammatical errors. This is unintentional and the practitioner does try to identify and correct these, but some could still be present. Please do not hesitate to contact practitioner for clarification. All questions answered to patients satisfaction. Patient verbalized understanding of diagnosis and treatments explained. To call sooner prior to next visit it any questions/concerns arise. 07/18/2024 Hypothyroidism , unspecified type (ICD-10 - E03.9) #Iron deficiency anemia. Most recent labs show hemoglobin 8.9 hematocrit 28.5. Has seen heme. She is awaiting transfusion and will follow up with them today. #Hypothyroidism. Will get updated labs follow-up pending results. #Status post gastric sleeve. Currently on vitamin A supplement. Discussed importance of monitoring labs. Will go today and follow-up pending results. Case discussed with collaborating physician Osmany who reviewed the assessment and plan. Chart, medications, labs, vital signs reviewed. Dictation was accomplished with the use of Gild[employer] voice recognition software, prone to medical misidentifications and grammatical errors. This is unintentional and the practitioner does try to identify and correct these, but some could still be present. Please do not hesitate to contact practitioner for clarification. All questions answered to patients satisfaction. Patient verbalized understanding of diagnosis and treatments explained. To call sooner prior to next visit it any questions/concerns arise. 08/11/2024 Hypothyroidism , unspecified type (ICD-10 - E03.9) #Morbid obesity. 08/11/24: 213.7, BMI 39.6 Weight down 1 pound since last visit. She is currently on Contrave 1 pill a day. She did not tolerate increased dose of contrave. Will resubmit PA for Zepbound. She is an excellent candidate. If denied, will continue contrave 1 pill/day. Continue to work on protein intake and regular exercise including resistance training. Follow-up with me in 1 month sooner with any concerns. #Anemia. History of iron deficiency anemia. Now getting weekly infusions. #Hypothyroidism. Repeat TSH in range. #S/p Gastric sleeve procedure. She has had some weight regain since. S/p panniculectomy. #Snoring. High clinical suspicion for sleep apnea. WIll refer for sleep study. She would be an excellent candidate for Zepbound. The patient will continue exercise regimen with [...] Dictation was accomplished with the use of Med ePad voice recognition software, prone to medical misidentifications [...] Dictation was accomplished with the use of Med ePad voice recognition software, prone to medical misidentifications and grammatical errors. This is unintentional and the practitioner does try to identify and correct these, but some could still be present. Please do not hesitate to contact practitioner for clarification. All questions answered to patients satisfaction. Patient verbalized understanding of diagnosis and treatments explained. To call sooner prior to next visit it any questions/concerns arise. 07/04/2024 S/P gastric sleeve procedure (ICD-10 - Z90.3) [...] Dictation was accomplished with the use of Med ePad voice recognition software, prone to medical misidentifications and grammatical errors. This is unintentional and the practitioner does try to identify and correct these, but some could still be present. Please do not hesitate to contact practitioner for clarification. All questions answered to patients satisfaction. Patient verbalized understanding of diagnosis and treatments explained. To call sooner prior to next visit it any questions/concerns arise. 05/11/2024 BMI 40.0-44.9, adult (ICD-10 - Z68.41) Patient [...] focus was on elimination of refined carbohydrates and portion control Total time spent was 30 minutes with greater than 50% spent on counseling and coordinating care 03/24/2024 S/P gastric sleeve procedure (ICD-10 - [...] Dictation was accomplished with the use of Med ePad voice recognition software, prone to medical misidentifications [...] Dictation was accomplished with the use of [employer]ild[employer] voice recognition software, prone to medical misidentifications [...] Dictation was accomplished with the use of Med ePad voice recognition software, prone to medical misidentifications [...] to next visit it any questions/concerns arise. 08/11/2024 S/P gastric sleeve procedure (ICD-10 - Z90.3) #Morbid obesity. 08/11/24: 213.7, BMI 39.6 Weight down 1 pound since last visit. She is currently on Contrave 1 pill a day. She did not tolerate increased dose of contrave. Will resubmit PA for Zepbound. She is an excellent candidate. If denied, will continue contrave 1 pill/day. Continue to work on protein intake and regular exercise including resistance training. Follow-up with me in 1 month sooner with any concerns. #Anemia. History of iron deficiency anemia. Now getting weekly infusions. #Hypothyroidism. Repeat TSH in range. #S/p Gastric sleeve procedure. She has had some weight regain since. S/p panniculectomy. #Snoring. High clinical suspicion for sleep apnea. WIll refer for sleep study. She would be an excellent candidate for Zepbound. The patient will continue exercise regimen with [...] Dictation was accomplished with the use of Med ePad voice recognition software, prone to medical misidentifications [...] Dictation was accomplished with the use of Med ePad voice recognition software, prone to medical misidentifications [...] Dictation was accomplished with the use of Med ePad voice recognition software, prone to medical misidentifications [...] Dictation was accomplished with the use of Med ePad voice recognition software, prone to medical misidentifications and grammatical errors. This is unintentional and the practitioner does try to identify and correct these, but some could still be present. Please do not hesitate to contact practitioner for clarification. All questions answered to patients satisfaction. Patient verbalized understanding of diagnosis and treatments explained. To call sooner prior to next visit it any questions/concerns arise. 07/04/2024 Weight loss counseling, encounter for (ICD-10 - [...] Dictation was accomplished with the use of Med ePad voice recognition software, prone to medical misidentifications [...] Dictation was accomplished with the use of Med ePad voice recognition software, prone to medical misidentifications and grammatical errors. This is unintentional and the practitioner does try to identify and correct these, but some could still be present. Please do not hesitate to contact practitioner for clarification. All questions answered to patients satisfaction. Patient verbalized understanding of diagnosis and treatments explained. To call sooner prior to next visit it any questions/concerns arise. 08/11/2024 Snoring (ICD-10 - R06.83) #Morbid obesity. 08/11/24: 213.7, BMI 39.6 Weight down 1 pound since last visit. She is currently on Contrave 1 pill a day. She did not tolerate increased dose of contrave. Will resubmit PA for Zepbound. She is an excellent candidate. If denied, will continue contrave 1 pill/day. Continue to work on protein intake and regular exercise including resistance training. Follow-up with me in 1 month sooner with any concerns. #Anemia. History of iron deficiency anemia. Now getting weekly infusions. #Hypothyroidism. Repeat TSH in range. #S/p Gastric sleeve procedure. She has had some weight regain since. S/p panniculectomy. #Snoring. High clinical suspicion for sleep apnea. WIll refer for sleep study. She would be an excellent candidate for Zepbound. The patient will continue exercise regimen with [...] Dictation was accomplished with the use of Med ePad voice recognition software, prone to medical misidentifications and grammatical errors. This is unintentional and the practitioner does try to identify and correct these, but some could still be present. Please do not hesitate to contact practitioner for clarification. All questions answered to patients satisfaction. Patient verbalized understanding of diagnosis and treatments explained. To call sooner prior to next visit it any questions/concerns arise. 08/11/2024 Weight loss counseling, encounter for (ICD-10 - Z71.3) #Morbid obesity. 08/11/24: 213.7, BMI 39.6 Weight down 1 pound since last visit. She is currently on Contrave 1 pill a day. She did not tolerate increased dose of contrave. Will resubmit PA for Zepbound. She is an excellent candidate. If denied, will continue contrave 1 pill/day. Continue to work on protein intake and regular exercise including resistance training. Follow-up with me in 1 month sooner with any concerns. #Anemia. History of iron deficiency anemia. Now getting weekly infusions. #Hypothyroidism. Repeat TSH in range. #S/p Gastric sleeve procedure. She has had some weight regain since. S/p panniculectomy. #Snoring. High clinical suspicion for sleep apnea. WIll refer for sleep study. She would be an excellent candidate for Zepbound. The patient will continue exercise regimen with [...] Dictation was accomplished with the use of Med ePad voice recognition software, prone to medical misidentifications [...] VITAMIN B12 02/25/2024 CBC with Differential 04/21/2024 TSH 07/18/2024 LIPID PANEL, STANDARD 02/25/2024 LIPID PANEL, STANDARD 12/31/2022 COMPREHENSIVE METABOLIC PANEL 02/25/2024 CBC (INCLUDES DIFF/PLT) 02/25/2024 HEMOGLOBIN A1c 12/31/2022 INSULIN 12/31/2022 VITAMIN D,25-OH,TOTAL,IA 02/25/2024 TSH+T3+Free T4+T3 Free 03/17/2024 Next Appt Details Provider Name:Marissa Bear, 0 09/13/2024 10:00:00 AM, [address], [address], [address], Provider Name:Marissa Bear, 0 11/21/2024 09:30:00 AM, [address], [place], [address], Insurance Providers Payer Name Payer Address Payer Phone Subscriber Number Group Number Insured Name Patient Relationship to Insured Coverage Start Date Coverage End Date Yayo Valenzuela [facility] [address] [place] [address] [phone] [id number] Zulema Lyman Self - patient is the insured 4 MEDICAL (GENERAL) HISTORY Medical History History ICD Code seasonal allergies weight change hemorrhoids thyroid disease anemia Surgical History Surgery Date(Month/Year) gastric bypass [place] Feb 2016 tubal ligation panniculectomy 2023
--- OUTSIDE RECORDS SUMMARY | 2024-09-02 13:18 | XMS_ITS ---
Author Organization [facility] Address [address] [place] [address] Care Team Providers Care Flexographic Press Operator Name Role Phone MOISÉS WALDROP Unavailable Marissa Bear Unavailable [phone] REASON FOR REFERRAL Reason Sleep Medicine [facility]; Sleep consult., snoring; r/o sleep apnea Diagnosis 1 Snoring (R06.83) Diagnosis 2 Sleep apnea in adult (G47.30) Referral Organization [place] [address] Referring Provider First Name Marissa Referring Provider Last Name Marianela Referring Provider Speciality Internal M edicine Referred Provider Specialty Sleep Medici ne General Notes [address] [facility].20 8, (p) [phone], (f) [phone] Clinical Notes Suly Gibson 11:08:08 AM > referral manually faxed with attachments Referral Priority Routine REASON FOR VISIT sleep referral Encounters Encounter Location Date Provider Diagnosis [facility] [address] [facility] [address] [place] [address] 08/11/2024 Marissa Bear PLAN OF TREATMENT Referrals Referral Date Details Sleep Medicine [facility]; Sleep consult., snoring; r/o sleep apnea Next Appt Details Provider Name:Marissa Bear, 0 09/13/2024 10:00:00 AM, [address] [facility] [address], [place], [address], Provider Name:Marissa Bear, 0 11/21/2024 09:30:00 AM, [address] [facility] [address], [place], [address], Progress Notes * Zulema KHOURYDOB: 1 (53 yo F)Acc No.[id number]:08/11/2024 Patient:??Zulema KHOURY :1970?Age:53 Y?Sex:Fe male Address:[address] [place] [address] Subjective: * Chief Complaints: * ?Sleep referral * Medical History:?? * Surgical History:?? * Hospitalization/Major Diagno stic Procedure:?? * Medications:?? Objective: Assessment: Plan: * Treatment: * Procedure Codes:?? * true * Date:?? Consultation Request Notes Referral Date Referring Provider Referred Provider Not walt 08/11/2024 Marissa Bear , Sleep Medicine Services; Sleep consult., snoring; r/o sleep apnea
--- OUTSIDE RECORDS SUMMARY | 2024-09-02 13:18 | XMS_ITS ---
Author Organization [facility] Address [address] [place] [address] Care Team Providers Care Manager Investigations Name Role Phone CLAUDE CHANTELLEMOISÉS Unavailable EricMarissa lyons Unavailable [phone] ALLERGIES Allergen (clinical drug ingredient) Drug/Non Drug Allergy documented on EMR Reaction Allergy Type Onset Date Status Shellfish (FN) Shellfish-derived Products Unknown Drug Allergy Active REASON FOR VISIT Patient seen in office for weight management follow up visit with ENIO., Patient stated she is unable to take more than one pill a day of contrave due to mood swings and GI upset. MEDICATIONS Medication SIG (Take, Route, Frequency, Duration) Notes Start Date End Date Status Zepbound 2.5 MG/0.5ML inject 2.5 Subcuta neous once a week for 30 days 05/11/2024 Not-Taki ng Vitamin A 2400 MCG (8000 UT) one tablet Orally twice a day for 30 days Active Progesterone 200 MG TAKE 1 CAPSULE BY [facility] AT BEDTIME ON DAYS 1 THROUGH 12 OF EACH MONTH Oral for 28 Days Active Vitamin A 2400 MCG (8000 UT) TAKE 1 CAPSULE BY MOUTH TWICE A DAY DIRECTED for 90 days Active Estradiol 0.0375 MG/24HR Transdermal for 28 Days Active Magnesium 200 MG 2 tablets with a filiberto l Orally Once a day Active Calcium 500 MG 1 tablet with meals Orally Twice a day Active Vitamin C 500 MG as directed Orally Active Zinc 100 MG 1 tablet Orally Once a day Active Probiotic 250 MG as directed Orally Active Contrave 8-90 MG 2 tablets Orally twi ce a day for 30 days Active VITAL SIGNS Blood pressure systolic 124 mm Hg 08/12/19 25 Blood pressure diastolic 78 mm Hg 025 Heart Rate 67 /min 08/11/2024 Height 61.75 in 08/11/2024 Weight 213 lbs 08/11/2024 BMI 39.27 kg/m2 08/11/2024 Oximetry 98 % 08/11/2024 Encounters Encounter Location Date Provider Diagnosis [address] [facility] [address] [place] [address] 08/11/2024 Marissainder Padillarojas Morbid obesity E66.0 1 ; BMI 39.0-39.9,adult Z68.39 ; Anemia, unspecified type D64.9 ; Hypothyroidism, unspecified type E03.9 ; S/P gastric sleeve procedure Z90.3 ; Snoring R06.83 and Weight loss counseling, encounter for Z71.3 ASSESSMENTS Encounter Date Diagnosis Assessment Notes Treatment Notes Treatment Clinical Notes Section Notes 08/11/2024 Morbid obesity (ICD-10 - E66.01) #Morbid [...] Dictation was accomplished with the use of Rebiotix voice recognition software, prone to medical misidentifications [...] Dictation was accomplished with the use of Rebiotix voice recognition software, prone to medical misidentifications [...] Dictation was accomplished with the use of Rebiotix voice recognition software, prone to medical misidentifications [...] Dictation was accomplished with the use of Rebiotix voice recognition software, prone to medical misidentifications [...] Dictation was accomplished with the use of Rebiotix voice recognition software, prone to medical misidentifications [...] Dictation was accomplished with the use of Rebiotix voice recognition software, prone to medical misidentifications [...] Dictation was accomplished with the use of Rebiotix voice recognition software, prone to medical misidentifications [...] day for 30 days Next Appt Details Follow Up: 4 Weeks, Reason: contrave Provider Name:Marissa Bear, 0 09/13/2024 10:00:00 AM, [address] [place] [address], [address], [address], Provider Name:Marissa Padillanevineloy, 0 11/21/2024 09:30:00 AM, [address] [place] [address], [address], [address], Progress Notes * PENG ZulemaDOB: 1 (53 yo F)Acc No.[id number]:08/11/2024 Patient:??Zulema KHOURY Provider:??Marissa Bear PA-C :1970?Age:53 Y?Sex:Fe male Date:08/11/2024 Address:[address] [place], [place] [id number] Subjective: * Chief Complaints: * ?1. Patient seen in off [place] for weight management follow up visit with ENIO.. 2. Patient stated she is unable to take more than one pill a day of contrave due to mood swings and GI upset.. * HPI: ?Constitutional:? Zulema is a 53-year-old female here today for weight management follow-up. She does have a past medical history significant for morbid obesity, status post gastric sleeve 7 years ago. She has a history of hypothyroidism however did not tolerate the levothyroxine. Unfortunately her insurance will not cover wegovy or zepbound. We will try re-submitting again. ?She has previously tried phentermine however failed this due to palpitations. She is currently on Contrave, one pill a day. She tried going up to 1 pill twice a day, but did not like how she felt- had mood changes. Feels ok on 1 pill a day and has some appetite suppression. She is worried about sleep apnea. Snoring a lot. Willing to do sleep study. She was able to start iron infusions. Has noticed some improvement in energy since. Improved protein to about 80 g a day, trying to increase walking. ?Highest weight: 283 ?Lowest weight: 155 (post gastric surgery) ?Current weight: 213.7, BMI 39.6 ?Weight last visit: 214.3, BMI 39.7 ?Walking 6 k steps/day ?Updated SECA reviewed today. Weight Is down 1 pounds. Fat mass and muscle stable. * ROS:?All Other Systems:?Review of Systems (ROS)??All others negative except those mentioned in HPI.? * Medical History:??Seasonal a llergies, Weight change, Hemorrhoids, Thyroid disease, Anemia. * Surgical History:??gastric b ypass [place] Feb 2016, tubal ligation , panniculectomy 2023. * Hospitalization/Major Diagno stic Procedure:??Denies Past Hospitalization. * Family History:??Father: dec eased.??Mother: .??1 sister(s) [...] one tablet Orally twice a day , Taking Contrave 8-90 MG Tablet Extended Release 12 Hour 2 tablets Orally twice a day , Not- Taking Zepbound 2.5 MG/0.5ML Solution Auto-injector inject 2.5 Subcutaneous once a week , Medication List reviewed and reconciled with the patient * Allergies:??Shellfish-derive d Products. Objective: * Vitals:??HR:67/min, BP:124/7 8mm Hg, Wt:213lbs, BMI:39.27Index, Ht: 61.75 in, Oxygen sat %:98%. * Physical Examination:?General: [...] type - E03.9??5.??S/P gastric sleeve procedure - Z90.3??6.??Snoring - R06.83??7.??Weight loss counseling, encounter for - Z71.3?? #Morbid obesity. 08/11/24: 213.7, BMI 39.6 Weight [...] Dictation was accomplished with the use of Rebiotix voice recognition software, prone to medical misidentifications [...] * Images: Billing Information: * Visit Code:?? 48875 Office Visit, Est Pt., Level 4. Modifiers: SA * Procedure Codes:?? G0447 FCE-FCE BEHAVRL CNSL OBESITY 15 MIN. Modifiers: 59 * Sign off status: Completed true * Provider:??Marissa Bear PA-C Date:??08/02 History and Physical Notes * HPI (History [...] insurance will not cover wegovy or zepbound. We will try re-submitting again. She has previously tried phentermine however failed this due to palpitations. She is currently on Contrave, one pill a day. She tried going up to 1 pill twice a day, but did not like how she felt- had mood changes. Feels ok on 1 pill a day and has some appetite suppression. She is worried about sleep apnea. Snoring a lot. Willing to do sleep study. She was able to start iron infusions. Has noticed some improvement in energy since. Improved protein to about 80 g a day, trying to increase walking. Highest weight: 283 Lowest weight: 155 (post gastric surgery) Current weight: 213.7, BMI 39.6 Weight last visit: 214.3, BMI 39.7 Walking 6 k steps/day Updated SECA reviewed today. Weight Is down 1 pounds. Fat mass and muscle stable. Physical Examination Category Sub-Category Detail Notes [...]
== END 2024-09-02 12:57 | disposition home or self-care (01) ==
LOC: HO.MAMMO 12:56
PROVIDERS: Visit Provider Internal Medicine
DX: Z12.31 Encounter for screening mammogram for malignant neoplasm of breast (principal)
CPT/HCPCS: 77063; 77067

== ENCOUNTER → 2024-09-02 13:00 | Outpatient (BNV) | payer BC, SELFPAY | PROVIDERS: Visit Provider Internal Medicine | DX: Z12.31 Encounter for screening mammogram for malignant neoplasm of breast (principal) | CPT/HCPCS: 77063; 77067 ==

== ENCOUNTER 2024-09-30 08:21 | Outpatient (REF) | payer BC, SELFPAY ==
--- NOTE | ~2024-09-30 | US_ITS ---
EXAMINATION: MM DIAGNOSTIC DIGITAL BREAST TOMOSYNTHESIS, RIGHT Right limited ultrasound. CLINICAL INFORMATION: Call back from screening for developing asymmetry in the superior right breast posterior depth on MLO view. COMPARISON: Mammography: Prior's on PACS. TECHNIQUE: Digital breast tomosynthesis is performed in both the craniocaudal and mediolateral oblique views along with computer-aided detection (CAD). Synthesized 2D images are generated from the tomosynthesis. FINDINGS: The breasts are heterogeneously dense, which may obscure small masses (ACR BI-RADS breast composition Category c). Asymmetry in the superior breast posterior depth on MLO view persists on additional imaging projections. No suspicious calcifications or other abnormal findings. Targeted color Doppler ultrasound scanning in the upper outer quadrant demonstrates normal dense fibronodular breast tissue. There is an incidental normal-appearing intramammary lymph node at 10:00 12 cm from the nipple. Otherwise there is no sonographic abnormal findings. US/US breast RT limited mamm only IMPRESSION: Asymmetry superior right breast on MLO view posterior depth slightly increasing comparison to multiple priors and without sonographic correlate. Recommend [facility] core needle biopsy at this time for confirmation. The findings and recommendations were discussed with the patient the procedure will be scheduled. ASSESSMENT: BI-RADS BI-RADS 4 - Suspicious finding RECOMMENDATION: Biopsy recommended Results were provided to the patient at time of visit by the technologist. This patient's information was entered into a reminder system with a target due date for their next mammogram. Electronically signed by: Teri Sanchez DO 09/30/2024 11:03 AM EDT
--- OUTSIDE RECORDS SUMMARY | 2024-09-30 08:23 | XMS_ITS | Patient Health Record ---
Author Organization [facility] Address [address] [place] [address] Care Team Providers Care Band Attacher Name Role Phone Derek Florence MDneth Primary Care Provider Rosanne Britt Unavailable [phone] Allergies Allergen (clinical drug ingredient) Drug/Non Drug Allergy documented on EMR Reaction Allergy Type Onset Date Status Adhesive Unknown Allergy Active Reason For Referral No Information Medications Medication SIG (Take, Route, Frequency, Duration) Notes Start Date End Date Status Vitamin A 3 MG (99394 UT) TAKE 1 CAPSULE BY MOUTH EVERY [...] Problem Status W/U Status Risk Notes Problem [id number] Hallux valgus (acquired), left foot (M20.12) Active confirmed Plan Of Treatment Pending Test Test Name Order Date X ray : Foot, left 3V 12/06/2021 Insurance Providers Payer Name Payer Address Payer Phone Subscriber Number Group Number Insured Name Patient Relationship to Insured Coverage Start Date Coverage End Date [facility] [address] [place] [address] [id number] Toy Lyman Spouse - patient is the spouse of the insured Medical (General) History Medical History History ICD Code Anemia asthma Chicken pox Surgical History Surgery Date(Month/Year) bariatric 03/03/2015 tubal ligation 1999
== END 2024-09-30 08:22 | disposition home or self-care (01) ==
LOC: HO.MAMMO 08:21
PROVIDERS: PCP Internal Medicine; Visit Provider Internal Medicine
DX: N64.89 Other specified disorders of breast (principal)
CPT/HCPCS: 76642; 77061; 77065

== ENCOUNTER → 2024-09-30 08:30 | Outpatient (BNV) | payer BC, SELFPAY | PROVIDERS: PCP Internal Medicine; Visit Provider Internal Medicine | DX: N64.89 Other specified disorders of breast (principal) | CPT/HCPCS: 76642; 77061; 77065 ==

== ENCOUNTER 2024-10-20 08:46 | Outpatient (REF) | payer BC, SELFPAY ==
--- NOTE | ~2024-10-20 | MM_ITS ---
EXAMINATION: STEREOTACTICALLY-GUIDED RIGHT BREAST BIOPSY CLINICAL INFORMATION: Developing focal asymmetry upper outer right breast. COMPARISON: Priors on PACS. INFORMED CONSENT: After the details of the procedure, as well as the risks (including, but not limited to, bleeding, hematoma formation, and infection), benefits and alternatives (including doing nothing, short-interval follow up, and surgery) to the procedure were explained to the patient in detail and all of her questions were answered, informed written consent was obtained. TECHNIQUE/FINDINGS: A timeout was performed. The lesion intended for biopsy was identified stereotactically and targeted. The skin of the right breast was then cleansed with sterile solution. Using stereotactic guidance, aseptic technique, and 1% lidocaine with and without epinephrine for local anesthesia, a total of 12 cores were obtained through the targeted area with a 9-gauge vacuum-assisted Eviva core biopsy device from a superior approach. Specimen radiography reveals the targeted calcifications in the sampled tissue. At the completion of tissue sampling, a single mini cork-shaped metallic clip was deposited at the biopsy site. Adequate sampling was achieved. The postprocedure 2-view direct digital mammogram reveals satisfactory positioning of the biopsy clip. The patient tolerated the procedure well and, after assuring adequate hemostasis, was discharged in good condition after reviewing postbiopsy breast care instructions. Final pathology results are pending. MM/MM stereotactic biopsy RT IMPRESSION: 1. Uncomplicated stereotactically-guided core biopsy of the right breast. The 2-view direct digital postprocedure mammogram reveals satisfactory positioning of the biopsy clip. 2. Final pathology results are pending. A separate report with final recommendations will be issued once these results are made available. Electronically signed by: Teri Sanchez DO 10/20/2024 11:34 AM EDT
--- OUTSIDE RECORDS SUMMARY | 2024-10-20 09:11 | XMS_ITS | Patient Health Record ---
Author Organization [facility] Address [address] [place] [address] Care Team Providers Care College Intern Name Role Phone Derek Florence MDneth Primary Care Provider Rosanne Britt Unavailable [phone] Allergies Allergen (clinical drug ingredient) Drug/Non Drug Allergy documented on EMR Reaction Allergy Type Onset Date Status Adhesive Unknown Allergy Active Reason For Referral No Information Medications Medication SIG (Take, Route, Frequency, Duration) Notes Start Date End Date Status Vitamin A 3 MG (88225 UT) TAKE 1 CAPSULE BY MOUTH EVERY [...] Problem Status W/U Status Risk Notes Problem [id number] Hallux valgus (acquired), left foot (M20.12) Active confirmed Plan Of Treatment Pending Test Test Name Order Date X ray : Foot, left 3V 12/06/2021 Insurance Providers Payer Name Payer Address Payer Phone Subscriber Number Group Number Insured Name Patient Relationship to Insured Coverage Start Date Coverage End Date [facility] [address] [place] [address] [id number] Toy Lyman Spouse - patient is the spouse of the insured Medical (General) History Medical History History ICD Code Anemia asthma Chicken pox Surgical History Surgery Date(Month/Year) bariatric 03/03/2015 tubal ligation 1999
[2024-10-20] MEDS: Sodium Bicarbonate 8.4% 50 MEQ/50 ML VIAL SUBCUT (10:37)
[2024-10-20] MEDS: Lidocaine HCl 1 % 20 ML VIAL 5 ML SUBCUT (10:38)
== END 2024-10-20 08:47 | disposition home or self-care (01) ==
LOC: HO.MAMMO 08:46
PROVIDERS: PCP Internal Medicine; Visit Provider Surgery
DX: R92.8 Other abnormal and inconclusive findings on diagnostic imaging of breast (principal)
CPT/HCPCS: 19081; 88305; A4648; J2003

== ENCOUNTER → 2024-10-20 09:00 | Outpatient (BNV) | payer BC, SELFPAY | PROVIDERS: PCP Internal Medicine; Visit Provider Internal Medicine | DX: N64.89 Other specified disorders of breast (principal) | CPT/HCPCS: 19081; 77065 ==

== ENCOUNTER 2024-10-25 11:16 | Outpatient (AMB) | payer BC, SELFPAY ==
--- NOTE | 2024-10-25 11:20 | A.OFFVIS_ITS ---
Vital Signs 10/25/24 11:34 Height 5 ft 1.5 in Weight 216 lb 6 oz BMI 40.2 BP 148/88 H Blood Pressure Location Lt brachial Position Sitting Pulse 64 Intake Visit Reasons: US bx from 10/20 Intake Note: Patient is seen in office for biopsy RESULTS following right breast upper outer quadrant for asymmetry. Pt c/o: did not feel any lump prior to bx, this was an incidental finding on mammogram, denies any prior breast surgeries or concerns, here for bx results, no fm hx of breast cancer Bx done: 10/20/24 Renewals Specialist Required: No Feeder Switchboard Operator: Feeder Switchboard Operator Present Accompanied by: Self / Same As Patient Allergies adhesive tape (ADHESIVE TAPE) Allergy (Intermediate, Verified 10/25/24 11:31) BLISTERS shellfish derived (SHELLFISH DERIVED) Allergy (Intermediate, Verified 10/25/24 11:31) HIVES silver (From TEGADERM AG MESH) Allergy (Intermediate, Verified 10/25/24 11:31) BLISTERS procaine (From Novocain) Allergy (Unknown, Verified 10/25/24 11:31) Unknown Medication List - Last Reconciled 10/25/24 by Manohar Martins MD ascorbic acid (vitamin C) 500 mg PO DAILY azithromycin For 250 mg dose pack: take 500 mg today (day 1), then 250 mg for 4 days (days 2-5) PO calcium carbonate (Calcium 500) 500 mg PO DAILY cholecalciferol (vitamin D3) 50 mcg PO DAILY epinephrine (EpiPen 2-Constantine) 0.3 mg (0.3 mL) IM Q4H PRN estradiol 1 patch transdermal QWEEK magnesium 250 mg PO BID progesterone micronized mg PO vitamin A 2 caps PO DAILY zinc acetate (Galzin) 50 mg PO DAILY HPI Comments Details: 54-year-old female presenting with a recent screening mammogram performed on 09/02/2024 with a additional mammogram views and ultrasound performed on 09/30/2024 which was significant for an asymmetry in the superior right breast noted on MLO view posterior depth without any sonographic correlate. This was felt to be suspicious for malignancy and stereotactic guided core biopsy recommended (BI- RADS 4). She denies any previous history of breast problems or breast surgery. Her family history is negative for breast cancer or ovarian cancer. She denied any breast symptoms including skin changes, breast pain, nipple discharge, or palpable mass. Her menarche was at 9, she is and had her 1st child to the age of 17. She did breastfeed for a short period of time. She is premenopausal and her last cycle was one-month ago. She underwent stereotactic guided core biopsy at the [facility] on 10/20/2024. This revealed benign breast tissue with focal stromal fibrosis. [facility] Medical History Upper respiratory tract infection Hypothyroid Anemia Vitamin D deficiency Vitamin A deficiency Obesity (BMI 30-39.9) Asthma PCOS (polycystic ovarian syndrome) Surgical History History of esophagogastroduodenoscopy (EGD) Hx of colonoscopy Hx of gastric bypass Hx of tubal ligation LAP-BAND surgery status Family History Father CAD (coronary artery disease) Mother Thyroid cancer TIA (transient ischemic attack) Alcoholism Sister Thyroid cancer Maternal Aunt History of breast cancer Other Substance abuse Social History Household Members: Spouse Housing: House Alcohol intake: never Patient Tobacco Use Status: Never used Tobacco Second Hand Smoke Exposure: Yes service: No Current occupational status: employed 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 Sexual orientation: Straight/Heterosexual Cognitive needs: No Hearing needs: No Vision needs: Yes Female Reproductive History Menstrual Age of Menarche: 9 Date of last menstrual period: 09/01/24 Total pregnancies: 2 Number of Living Children: 2 Review of Systems Const All systems reviewed & are unremarkable except as noted in HPI and below Physical Exam Vital Signs: Last Vital Signs Pulse 64 10/25/24 11:34 BP 148/88 H 10/25/24 11:34 BMI result Body Mass Index 40.2 Const General: cooperative and no acute distress Nutritional Appearance: well nourished Orientation/consciousness: patient oriented x3 Limitations: no limitations HEENT Head: Yes normocephalic and Yes atraumatic Ears: hearing grossly normal bilaterally Chest Other: Left breast: No skin change, no nipple retraction, no nipple discharge, no palpable mass, no enlarged lymph nodes. Right breast: Biopsy site in the upper outer quadrant with no other skin change, no nipple retraction, no nipple discharge, no palpable mass, no enlarged lymph nodes Resp Effort & Inspection: normal respiratory effort, no audible wheezes, no cough and no respiratory distress Cardio Jugular venous distension: no JVD GI Inspection: Yes normal to inspection Skin Other: Warm, dry, no rash Neuro General: patient oriented x3 Extrem General: Yes no clubbing, cyanosis or edema Assessment & Plan Assessment & Plan (1) Abnormal mammogram of right breast: Code(s): R92.8 - Other abnormal and inconclusive findings on diagnostic imaging of breast Category: Medical Plan 54-year-old female patient presenting with a recent mammogram which revealed an asymmetry in the upper outer portion of the right breast felt to be suspicious for malignancy. She denies a previous history of breast problems or breast surgery. Examination revealed no suspicious findings in either breast. She underwent a stereotactic guided core biopsy at the [facility] on 10/20/2024. Pathology revealed benign breast tissue. No surgical intervention is required at this time based on this pathology results. We are awaiting the final assessment from Radiology regarding follow-up imaging. I will pass this along to Ms. Lyman when available. Coding Level of Care Code New Pt Level 4 (45507) Diagnoses Abnormal mammogram of right breast R92.8
[2024-10-25 11:34] VITALS: BP 148/88; PULSE 64; BMI 40.2
--- OUTSIDE RECORDS SUMMARY | 2024-10-25 12:54 | XMS_ITS | Patient Health Record ---
Author Organization [facility] Address [address] [place] [address] Care Team Providers Care Hookman Name Role Phone Derek Florence MDneth Primary Care Provider Rosanne Britt Unavailable [phone] Allergies Allergen (clinical drug ingredient) Drug/Non Drug Allergy documented on EMR Reaction Allergy Type Onset Date Status Adhesive Unknown Allergy Active Reason For Referral No Information Medications Medication SIG (Take, Route, Frequency, Duration) Notes Start Date End Date Status Vitamin A 3 MG (65733 UT) TAKE 1 CAPSULE BY MOUTH EVERY [...] Problem Status W/U Status Risk Notes Problem [id number] Hallux valgus (acquired), left foot (M20.12) Active confirmed Plan Of Treatment Pending Test Test Name Order Date X ray : Foot, left 3V 12/06/2021 Insurance Providers Payer Name Payer Address Payer Phone Subscriber Number Group Number Insured Name Patient Relationship to Insured Coverage Start Date Coverage End Date [facility] [place] [address] [place] [address] [id number] Toy Lyman Spouse - patient is the spouse of the insured Medical (General) History Medical History History ICD Code Anemia asthma Chicken pox Surgical History Surgery Date(Month/Year) bariatric 03/03/2015 tubal ligation 1999
== END 2024-10-25 11:42 | disposition home or self-care (01) ==
LOC: HO.HGS 11:17
PROVIDERS: PCP Internal Medicine; Visit Provider Surgery
DX: R92.8 Other abnormal and inconclusive findings on diagnostic imaging of breast (principal)
CPT/HCPCS: 99204

== ENCOUNTER 2024-12-01 14:20 | Outpatient (AMB) | payer BC, SELFPAY ==
--- NOTE | 2024-12-01 14:23 | MHC.OFFVISWM ---
VS Expanded 12/01/24 14:34 BP 142/74 H Blood Pressure Location Rt brachial Blood Pressure Position Sitting Pulse 58 Pulse Source Pulse Oximeter Temp 96.9 F Temperature Source Temporal Artery Scan Pulse Oximetry 98 Oxygen Delivery Method Room Air Height 5 ft 1.5 in Weight 213 lb 3.2 oz BMI 39.6 Body Fat % 41.7 Body Fat Mass 88.8 Fat Free Mass 124.4 Visceral Fat Rating 12.0 Body Water % 41.5 Body Water Mass 88.4 Muscle Mass/Score 118.2 Basal Metabolic Rate/Score 1,717 Intake Visit Reasons: OV PO LSG 03/02/17 Allergies adhesive tape (ADHESIVE TAPE) Allergy (Intermediate, Verified 12/01/24 14:30) BLISTERS shellfish derived (SHELLFISH DERIVED) Allergy (Intermediate, Verified 12/01/24 14:30) HIVES silver (From TEGADERM AG MESH) Allergy (Intermediate, Verified 12/01/24 14:30) BLISTERS procaine (From Novocain) Allergy (Unknown, Verified 12/01/24 14:30) Unknown Medication List - Last Reconciled 12/01/24 by JASBIR Gomez ascorbic acid (vitamin C) 500 mg PO DAILY calcium carbonate (Calcium 500) 500 mg PO DAILY cholecalciferol (vitamin D3) 50 mcg PO DAILY epinephrine (EpiPen 2-Constantine) 0.3 mg (0.3 mL) IM Q4H PRN estradiol 1 patch transdermal QWEEK magnesium 250 mg PO BID progesterone micronized 200 mg PO DAILY vitamin A 2 caps PO DAILY zinc acetate (Galzin) 50 mg PO DAILY HPI Comments Details: This?is a?54?yo F who is s/p LSG 03/02/2017. Weight gain of 13.8lbs since last OV in Feb 2022. No complaints of nausea, emesis, abdominal pain or reflux, or constipation. Still works overnights, wants to work day shift. Did try Contrave, but says she did not tolerate it well. Present meal plan includes: knows she does not get enough protein 4-5 hours sleep, then will nap for an hour in the evening has a Atkins shake and got Pure protein Protein bars sometimes will have a Weight Watchers meal eats grain bread Exercise routine includes: has equipment- treadmill, bike, weights, rower likes the rower, does vibration plate every day PFSH Medical History (Updated 11/11/24 @ 09:40 by Daphney Wilkinson MD) Upper respiratory tract infection Hypothyroid Anemia Vitamin D deficiency Vitamin A deficiency Obesity (BMI 30-39.9) Asthma PCOS (polycystic ovarian syndrome) Surgical History (Updated 12/01/24 @ 14:32 by Diane Horton CMA) Hx of plastic surgery History of esophagogastroduodenoscopy (EGD) Hx of colonoscopy Hx of gastric bypass Hx of tubal ligation LAP-BAND surgery status Family History Father CAD (coronary artery disease) Mother Thyroid cancer TIA (transient ischemic attack) Alcoholism Sister Thyroid cancer Maternal Aunt History of breast cancer Other Substance abuse Social History Household Members: Spouse Housing: House Alcohol intake: never Patient Tobacco Use Status: Never used Tobacco Second Hand Smoke Exposure: Yes service: No Current occupational status: employed 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 Sexual orientation: Straight/Heterosexual Cognitive needs: No Hearing needs: No Vision needs: Yes Female Reproductive History Menstrual Age of Menarche: 9 Physical Exam Vital Signs: Last Vital Signs Temp 96.9 F 12/01/24 14:34 Pulse 58 12/01/24 14:34 BP 142/74 H 12/01/24 14:34 Pulse Ox 98 12/01/24 14:34 Oxygen Delivery Method Room Air 12/01/24 14:34 BMI result Body Mass Index 39.6 Assessment & Plan Assessment & Plan (1) Obesity (BMI 30-39.9): Code(s): E66.9 - Obesity, unspecified Category: Medical (2) S/P gastric bypass: Code(s): Z98.84 - Bariatric surgery status Category: Medical Plan Reviewed previous meal plan created by RD that pt reports worked well for her- 12am coffee and Pure protein bar 3am protein bar 6am yogurt sleeps 8am-1pm 2pm shake 5pm meal 2oz protein 2 oz veg 9pm hardboiled egg or fat free cheese for example, or fruit or veg Gave healthy foods handout. Also discussed RightBMi galilea option although I'm not sure it will be optimal fot pt based on her sleep schedule Labs ordered. RTC 3mo, also texted pt and encouraged her to reach out via text between appts with any questions. Orders: Orders Vitamin B1 Today Z98.84 - Bariatric surgery status Zinc Today Z98.84 - Bariatric surgery status Vitamin B12 and Folate Today Z98.84 - Bariatric surgery status Complete Blood Count Auto Diff Today Z98.84 - Bariatric surgery status Lipid Panel Today Z98.84 - Bariatric surgery status Insulin Today Z98.84 - Bariatric surgery status Vitamin D 25-OH Total Today Z98.84 - Bariatric surgery status Ferritin Today Z98.84 - Bariatric surgery status TSH reflex Free T4 Today Z98.84 - Bariatric surgery status C Reactive Protein Today Z98.84 - Bariatric surgery status Vitamin A Today Z98.84 - Bariatric surgery status Comprehensive Met. Panel Today Z98.84 - Bariatric surgery status IRON PROFILE Today Z98.84 - Bariatric surgery status Hemoglobin A1c Today Z98.84 - Bariatric surgery status
--- OUTSIDE RECORDS SUMMARY | 2024-12-01 14:32 | XMS_ITS ---
Author Name [facility] Organization Unknown Encounters Encounter Type Encounter Reason Primary Diagnosis Location Date Ambulatory [facility] 03/01/2024 Care Team Organization Name Specialty Phone Email Start Date End Da te [facility] [address] [facility] 02/11/2024
[2024-12-01 14:34] VITALS: BP 142/74; PULSE 58; TEMP 36.1; O2SAT 98; BMI 39.6
== END 2024-12-01 15:13 | disposition home or self-care (01) ==
LOC: HO.HBS 14:20
PROVIDERS: PCP Internal Medicine; Visit Provider Physician Assistant Surgical
DX: E66.9 Obesity, unspecified (principal); Z68.39 Body mass index [BMI] 39.0-39.9, adult; Z90.3 Acquired absence of stomach [part of]; Z98.84 Bariatric surgery status
CPT/HCPCS: 99214

== ENCOUNTER 2024-12-05 14:38 | Outpatient (REF) | payer BC, SELFPAY ==
--- OUTSIDE RECORDS SUMMARY | 2024-11-02 09:00 | XMS_ITS ---
Author Organization [facility] [address] Address [address] [place] [address] Care Team Providers Care Window Sash Installer Name Role Phone CLAUDE MOISÉS LOCKHART Unavailable [phone] Marissa Bear Unavailable [phone] Encounters Encounter Location Date Provider Diagnosis [facility] [phone] [address] 11/02/2024 Marissa Bear Plan Of Treatment No Information Progress Notes * Zulema KHOURYDOB: 1 (54 yo F)Acc No.[id number]:11/02/2024 Patient: Zulema GOLDSTEIN Provider: Rikki Bear PA-C :1970 A ge:54 Y S ex:Female Date:11/02/2024 Address:[address] [place], [place] [id number] Subjective: * Chief Complaints: * * Medical History: Objective: * Vitals: Assessment: Plan: * Treatment: * Images: Billing Information: * Visit Code: * Procedure Codes: * Electronic signature of Marissa Bear PA-C on 12/05/2024 at 02:41 PM EDT Sign off status: Pending * Provider: Rikki Bear PA-C Date: 11/02/2024 Generated for Inesi ng/Faxing/eTransmitting on: 12/05/2024 02:41 PM EDT
--- OUTSIDE RECORDS SUMMARY | 2024-12-05 14:41 | XMS_ITS | Patient Health Record ---
Author Organization [facility] Address [address] [place] [address] Care Team Providers Care Visual Education Teacher Name Role Phone Renetta Florence MDh Primary Care Provider Rosanne Britt Unavailable [phone] Allergies Allergen (clinical drug ingredient) Drug/Non Drug Allergy documented on EMR Reaction Allergy Type Onset Date Status Adhesive Unknown Allergy Active Reason For Referral No Information Medications Medication SIG (Take, Route, Frequency, Duration) Notes Start Date End Date Status Vitamin A 3 MG (56224 UT) TAKE 1 CAPSULE BY MOUTH EVERY DAY Oral; Duration: 90 Active Levothyroxine Sodium 25 MCG 1 tablet in the morning on an empty stomach Orally Once a day; Duration: 30 day(s) Active Loratadine 10 MG TAKE 1 TABLET BY CONY TH EVERY DAY Oral; Duration: 90 Active Loratadine 10 MG 1 tablet Orally Once a day; Duration: 30 day(s) Active Vitamin A Active Social [...] Problem Status W/U Status Risk Notes Problem Acquired hallux valgus (47543606) Hallux valgus (acquired), left foot (M20.12) Active confirmed Plan Of Treatment Pending Test Test Name Order Date X ray : Foot, left 3V 12/06/2021 Insurance Providers Payer Name Payer Address Payer Phone Subscriber Number Group Number Insured Name Patient Relationship to Insured Coverage Start Date Coverage End Date Yayo Dao Appling [address] [place] [address] [id number] Toy Lyman Spouse - patient is the spouse of the insured Medical (General) History Medical History History ICD Code Anemia asthma Chicken pox Surgical History Surgery Date(Month/Year) bariatric 03/03/2015 tubal ligation 1998
[2024-12-05 14:53] LABS: MANUAL DIFF FLAG NO
[2024-12-05 15:12] LABS: Hematocrit 38.3 % (37.0-47.0); Hemoglobin 12.8 g/dl (12.0-16.0); Imm Gran Abs Auto 0.01 X10*3/uL (0.00-0.03); Imm Gran Pct Auto 0.1 % (0.0-0.4); Lymphocytes Absolute Auto 1.8 X10*3/uL (1.2-4.9); Mean Corpuscular HGB Conc 33.4 g/dl (31.0-35.0); Mean Corpuscular Hemoglobin 29.4 pg (27.0-33.0); Mean Corpuscular Volume 88.0 fL (80.0-98.0); NRBC Abs Auto 0.000 X10*3/uL (0.0-0.012); NRBC Pct Auto 0.0 /100WBC (0.0-0.2); Platelet Count 234 X10*3/uL (160-400); Red Blood Count 4.35 X10*6/uL (4.20-5.50); White Blood Count 6.9 X10*3/uL (4.8-10.8)
[2024-12-05 15:21] LABS: Hemoglobin A1C 122.1175 umol/L; Total Hemoglobin (HGBA1C) 3374.0490 umol/L
[2024-12-05 15:46] LABS: Alanine Aminotransferase 27 U/L (0-31); Albumin Level 4.0 g/dL (3.5-5.0); Alkaline Phosphatase 80 U/L (39-117); Anion Gap 12 (12-20); Aspartate Amino Transferase 24 U/L (5-31); Blood Urea Nitrogen 16 mg/dL (9-16); Calcium 8.8 mg/dL (8.4-10.2); Carbon Dioxide 26 mmol/L (22-29); Chloride 108 mmol/L (96-108); Cholesterol 185 mg/dL (<200); Estimated Glomerular Filt Rate > 60; HDL Cholesterol 57 mg/dL (>40); Iron 113 mcg/dL (30-160); Percent Iron Saturation 38 % (15-50); Potassium 4.1 mmol/L (3.3-5.1); Sodium 142 mmol/L (135-145); Total Iron Binding Capacity 296 mcg/dL (228-428); Total Protein 6.9 g/dL (6.5-8.0); Triglycerides 63 mg/dL (<150); Unsaturated Iron Binding 183 ug/dL
[2024-12-05 15:56] LABS: Ferritin 41 ng/mL (10-250)
[2024-12-05 16:06] LABS: Folate > 20.0 ng/mL (> or = 4.0); Vitamin B12 770 pg/mL (200-900)
== END 2024-12-05 14:39 | disposition home or self-care (01) ==
LOC: HO.LAB 14:38
PROVIDERS: Visit Provider Physician Assistant Surgical
DX: Z13.6 Encounter for screening for cardiovascular disorders (principal); Z13.1 Encounter for screening for diabetes mellitus; Z13.29 Encounter for screening for other suspected endocrine disorder; Z98.84 Bariatric surgery status
CPT/HCPCS: 36415; 80053; 80061; 82306; 82607; 82728; 82746; 83036; 83525; 83540; 84425; 84443; 84590; 84630; 85025; 86140

== ENCOUNTER 2024-12-23 14:33 | Outpatient (AMB) | payer BC, SELFPAY ==
--- NOTE | 2024-12-23 14:40 | A.OFFPC_ITS ---
Vital Signs 12/23/24 14:44 Height 5 ft 1.5 in Weight 214 lb 4 oz BMI 39.8 BP 126/84 Blood Pressure Location Lt brachial Position Sitting Pulse 68 Pulse Source Pulse Oximeter Pulse Oximetry (%) 98 Oxygen Delivery Method Room Air Intake Visit Reasons: Steve zamudios Rn Pediatric Required: No Accompanied by: Self / Same As Patient Allergies adhesive tape (ADHESIVE TAPE) Allergy (Intermediate, Verified 12/23/24 15:34) BLISTERS shellfish derived (SHELLFISH DERIVED) Allergy (Intermediate, Verified 12/23/24 15:34) HIVES silver (From TEGADERM AG MESH) Allergy (Intermediate, Verified 12/23/24 15:34) BLISTERS procaine (From Novocain) Allergy (Unknown, Verified 12/23/24 15:34) Unknown Medication List - Last Reconciled 12/23/24 by Diogenes Florence MD ascorbic acid (vitamin C) 500 mg PO DAILY calcium carbonate (Calcium 500) 500 mg PO DAILY cholecalciferol (vitamin D3) 50 mcg PO DAILY epinephrine (EpiPen 2-Constantine) 0.3 mg (0.3 mL) IM Q4H PRN estradiol 1 patch transdermal QWEEK magnesium 250 mg PO BID progesterone micronized 200 mg PO DAILY vitamin A 2 caps PO DAILY zinc gluconate 30 mg PO DAILY zinc gluconate 30 mg PO DAILY Tobacco use date assessed: 12/23/24 Dental Screening Dental Screen Date: 12/23/24 Did you have a dental visit in the last 12 months?: Yes Did you have a dental problem in the last 6 months where you did not have access to dental care?: No Was dental information given to patient?: Patient has dentist HPI B12 robbs HPI Details Patient comes in today for her annual physical examination - was last seen by me in 04/2021 States that she feels okay She denies any headaches or dizziness Denies any chest pains, no SOB She reports experiencing nausea often but denies any vomiting; also denies any abdominal pain but reports frequent early satiety - states that she's had these for a few years now and thinks that they are mostly related to her Hx of gastric bypass surgery a few years ago No change in bowel habits noted She denies any acute urinary symptoms She had some follow up labs done a couple of weeks ago - to discuss her results States that she has noticed that her zinc level is low on her recent labs She is up-to-date with her cancer screenings - had her colonoscopy last done in October 2022 and was recommended to get repeat colonoscopy in 10 years (2032) She had her annual mammogram last done back in September 2024 and her yearly gynecology exam done with [facility] in May 2024 - states that she has an appointment with them again sometime early next year [facility] Medical History (Updated 12/25/24 @ 18:02 by Diogenes Florence MD) Hypothyroid Anemia Vitamin D deficiency Vitamin A deficiency Obesity (BMI 30-39.9) Asthma PCOS (polycystic ovarian syndrome) Surgical History (Updated 12/25/24 @ 17:39 by Diogenes Florence MD) Hx of plastic surgery History of esophagogastroduodenoscopy (EGD) Hx of colonoscopy Hx of gastric bypass Hx of tubal ligation LAP-BAND surgery status Family History Father CAD (coronary artery disease) Mother Thyroid cancer TIA (transient ischemic attack) Alcoholism Sister Thyroid cancer Maternal Aunt History of breast cancer Other Substance abuse Social History Household Members: Spouse Housing: House Alcohol intake: never Patient Tobacco Use Status: Never used Tobacco e-Cigarette/Vaping Use: Never Used Second Hand Smoke Exposure: Yes service: No Current occupational status: employed 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 1. Little interest or pleasure in doing things: not at all 2. Feeling down, depressed, or hopeless: not at all 3. Trouble falling or staying asleep, or sleeping too much: more than half the days 4. Feeling tired or having little energy: several days 5. Poor appetite or overeating: several days 6. Feeling bad about yourself - or that you are a failure or have let yourself or your family down: not at all 7. Trouble concentrating on things, such as reading the newspaper or watching television: several days 8. Moving or speaking so slowly that other people could have noticed. Or the opposite - being so fidgety or restless that you have been moving around a lot more than usual: not at all 9. Thoughts that you would be better off or of hurting yourself in some way: not at all Total score: 5 Depression Screening Interpretation: Positive Depression Screening Follow-up: Community Mental Health Worker F/U Depression Screening Done: Yes [id number] - PHQ-9 Billing: Yes Source: Developed by Drs. Ramírez Zurita, Zaida Kapoor, Avila Sheikh and colleagues, with an educational luis from [employer]. Thrive Questionnaire Date Thrive assessed: 12/23/24 I am a: Patient What is your living situation today?: I have a steady place to live Within the past 12 months, did the food you bought not last and you didn't have the money to get more?: Never true Within the past 12 months, did you worry whether your food would run out before you got money to buy more?: Never true Do you have trouble paying for medicines?: No Do you have trouble getting transportation to medical appointments?: No Do you have trouble paying your heating and electricity bill?: No Do you have trouble taking care of your child, family member or friend?: No Do you have trouble with day-to-day activities such as bathing, preparing meals, shopping, managing finances, etc.?: No Are you currently unemployed and looking for a job?: No Are you interested in more education?: Yes Please select the resources that you would like help with: Job search/training Currently or been in a relationship where the following occur: No concerns reported THRIVE Score: 0 AUDIT C Alcohol Use Questionnaire (AUDIT-C) 1. How often do you have a drink containing alcohol?: Monthly or less 2. How many drinks containing alcohol do you have on a typical day when you are drinking?: 1 or 2 3. How often do you have six or more drinks on one occasion?: Never Total Score: 1 Score Reviewed/Action Taken: Yes ELLE-7 AMB Questionnaire ELLE-7 Date ELLE - 7 assessed: 12/23/24 Feeling nervous, anxious, or on edge: 1 = Several days Not being able to stop or control worryin = Several days Worrying too much about different things: 0 = Not at all Trouble relaxin = Several days Being so restless that it is hard to sit still: 0 = Not at all Becoming easily annoyed or irritable: 1 = Several days Feeling afraid as if something awful might happen: 0 = Not at all Total ELLE-7 score (0-4 normal; 5-9 mild; 10-14 moderate; 15-21 severe): 4 Source: Developed by Drs. Ramírez Zurita, Zaida Kapoor, Avila Sheikh and colleagues, with an educational luis from [employer]. Review of Systems Const Denies chills, Reports fatigue, Denies fever(s), Denies headache(s) and Denies malaise Eyes Denies blurry vision, Denies change in vision, Denies irritation and Denies itchy eyes ENT Denies dysphagia, Denies dizziness, Denies otalgia, Denies headache(s), Denies nasal congestion, Denies neck pain, Denies odynophagia, Denies sinus pain and Denies sore throat Card Denies chest pain, Denies rapid heart rate, Denies irregular heart rhythm, Denies palpitations and Denies dyspnea Resp Denies chest congestion, Denies cough, Denies dyspnea and Denies wheezing GI Denies abdominal pain, Denies bloating, Denies constipation, Denies dysphagia, Reports early satiety, Denies heartburn, Denies diarrhea, Reports nausea (recurrent), Denies odynophagia and Denies vomiting Denies hematuria, Denies difficulty voiding, Denies nocturia, Denies dysuria, Denies urinary incontinence and Denies urinary urgency Musc Denies back pain, Denies arthralgias, Denies joint swelling, Denies muscle weakness and Denies neck pain Skin/Breast Denies breast pain, Denies breast mass, Denies change in pigmentation, Denies lesions, Denies rash and Denies unusual bruising Neuro Denies dizziness, Denies headache(s) and Denies paresthesias Psych Denies anxiety and Denies depression Endo Reports fatigue and Denies palpitations Tobi/Lymph Denies easy bruising Aller/Immun Denies itchy eyes and Denies wheezing Physical exam (Primary Care) Vital Signs: Last Vital Signs Pulse 68 12/23/24 14:44 BP 126/84 12/23/24 14:44 Pulse Ox 98 12/23/24 14:44 Oxygen Delivery Method Room Air 12/23/24 14:44 BMI result Body Mass Index 39.8 Tobacco/Smoking Status: Tobacco use Status Tobacco use date assessed 12/23/24 12/23/24 14:52 Patient Tobacco Use Status Never used Tobacco 12/23/24 14:41 e-Cigarette/Vaping Use Never Used 12/23/24 14:52 PHQ-9: PHQ-9 Score PHQ-9: Total score 5 12/23/24 15:56 Depression Screening Interpretation: Positive Depression Screening Follow-up: Community Mental Health Worker F/U Thrive Assessment: Date of Thrive Assessment Date Thrive assessed 12/23/24 12/23/24 14:52 Currently or been in a relationship where the following occur: No concerns reported Const General: no acute distress, alert and awake Orientation/consciousness: patient oriented x3 HENMT Head: Yes normocephalic and Yes atraumatic Ears: external ears normal, TM's normal bilaterally and EAC's normal General nose exam: No nasal discharge present Face and sinus: Yes normal facial exam and Yes sinuses nontender Teeth and gingiva: dentition normal Throat: Yes posterior oropharynx normal and Yes tonsils normal (no TP congestion) Eyes Eyelids: Yes eyelids normal Conjunctivae: conjunctivae normal Pupils: Equal, round and reactive pupils present EOM: EOMs intact bilaterally Neck Neck: Yes no lymphadenopathy and Yes supple Thyroid: Thyroid normal Resp Auscultation: clear to auscultation bilaterally, no rales and no wheezes Cardio Rate: regular rate Rhythm: regular rhythm Heart sounds: no murmurs GI Palpation (GI): Soft to palpation, nontender and No hepatosplenomegaly present Auscultation: normal bowel sounds General: Yes no CVA tenderness Back/Spine/Pelvis Back: no CVA tenderness Thoracic/Lumbar Spine: thoracic and lumbar spine normal to inspection Skin Lesions: no lesions Rashes: no rashes Neuro General: patient oriented x3, moves all extremities, no focal motor deficits and CN's II-XI intact bilaterally Cranial nerves: Yes Equal, round and reactive pupils present Cognition (Neuro): normal cognition Gait exam (Neuro): Normal gait present Extrem General: Yes no clubbing, cyanosis or edema Results Reviewed Results Reviewed: Laboratory Tests 12/05/24 14:51 WBC 6.9 Hgb 12.8 Hct 38.3 Plt Count 234 Sodium 142 Potassium 4.1 Creatinine 0.62 Estimated GFR > 60 Random Glucose 98 Hemoglobin A1c % 5.5 Insulin Level 9 Calcium 8.8 D Iron 113 TIBC 296 % Saturation 38 Ferritin 41 AST 24 ALT 27 C-Reactive Protein < 0.10 Triglycerides 63 Cholesterol 185 LDL Cholesterol, Calc 116 H HDL Cholesterol 57 Vitamin A 39 Vitamin B1 11 Vitamin B12 770 25-OH Vitamin D Total 67.1 TSH 1.54 Zinc 59 L Coding Level of Care Code Est Pt Prev Care 40-64y(74352) Diagnoses Annual physical exam Z00.00 Iron deficiency anemia secondary to inadequate dietary iron intake D50.8 Iron deficiency anemia type: inadequate dietary iron intake Mild intermittent asthma without complication J45.20 Asthma severity: mild Asthma persistence: intermittent Asthma complication type: uncomplicated Vitamin A deficiency E50.9 Vitamin D deficiency E55.9 History of hypothyroidism Z86.39 Obesity (BMI 30-39.9) E66.9 Additional Codes PHQ-9 - 02225 - PHQ-9 Billing: Yes ([id number]) Assessment & Plan Assessment & Plan (1) Annual physical exam: Code(s): Z00.00 - Encounter for general adult medical examination without abnormal findings Category: Medical Plan: Results of her labs done a couple of weeks ago reviewed and discussed with patient She is up-to-date with her cancer screenings - had her colonoscopy last done in October 2022 and was recommended to get repeat colonoscopy in 10 years (2032) She had her annual mammogram last done back in September 2024 and her yearly gynecology exam done with [facility] in May 2024 - states that she has an appointment with them again sometime early next year (2) Iron deficiency anemia: Code(s): D50.9 - Iron deficiency anemia, unspecified Category: Medical Qualifiers: Iron deficiency anemia type: inadequate dietary iron intake Qualified Code(s): D50.8 - Other iron deficiency anemias Plan: Her H/H were normal at 12.8/38.3 on her recent labs done a couple of weeks ago Patient gets IV iron infusion (Venofer) from hematology when needed Follow up with hematology (Dr. Wilkinson) as scheduled (3) Asthma: Code(s): J45.909 - Unspecified asthma, uncomplicated Category: Medical Qualifiers: Asthma severity: mild Asthma persistence: intermittent Asthma complication type: uncomplicated Qualified Code(s): J45.20 - Mild intermittent asthma, uncomplicated Plan: Controlled Continue Albuterol HFA 1 to 2 inhalations every 6 hours PRN (4) Vitamin A deficiency: Code(s): E50.9 - Vitamin A deficiency, unspecified Category: Medical Plan: Corrected - continue Vitamin A supplements daily (5) Vitamin D deficiency: Code(s): E55.9 - Vitamin D deficiency, unspecified Category: Medical Plan: Corrected - continue Vitamin D3 2000 units QD (6) History of hypothyroidism: Code(s): Z86.39 - Personal history of other endocrine, nutritional and metabolic disease Category: Medical Plan: Patient used to take Levothyroxine 75 mcg daily but appears to have come off the medication and has not been taking them over a year now Her serum TSH level on recent labs done a couple weeks ago was normal and patient currently appears clinically euthyroid so she likely does not require any thyroid hormone supplement at this time We will recheck her serum TSH/TFTs in 1 year for follow-up (7) Obesity (BMI 30-39.9): Code(s): E66.9 - Obesity, unspecified Category: Medical Plan: Reinforced diet/exercise as tolerated/lose weight S/P bariatric surgery back in 2017 Follow up with weight management as scheduled Plan To return in 1 year for her next annual physical examination Orders: Orders Complete Blood Count Auto Diff 1 Year D64.9 - Anemia, unspecified, Z00.00 - Encounter for general adult medical examination without abnormal findings, Z98.84 - Bariatric surgery status Comprehensive Marlin. Panel Fast 1 Year E78.00 - Pure hypercholesterolemia, unspecified, Z00.00 - Encounter for general adult medical examination without abnormal findings, Z98.84 - Bariatric surgery status Lipid Panel 1 Year E78.00 - Pure hypercholesterolemia, unspecified, Z00.00 - Encounter for general adult medical examination without abnormal findings, Z98.84 - Bariatric surgery status Vitamin B12 and Folate 1 Year E53.8 - Deficiency of other specified B group vitamins, Z00.00 - Encounter for general adult medical examination without abnormal findings, Z98.84 - Bariatric surgery status Vitamin A 1 Year E50.9 - Vitamin A deficiency, unspecified, Z00.00 - Encounter for general adult medical examination without abnormal findings, Z98.84 - Bariatric surgery status Vitamin B6 1 Year Z00.00 - Encounter for general adult medical examination without abnormal findings, Z98.84 - Bariatric surgery status Thyroid Stimulating Hormone 1 Year Z86.39 - Personal history of other endo crine, nutritional and metabolic disease IRON PROFILE 1 Year D50.9 - Iron deficiency anemia, unspecified, Z00.00 - Encounter for general adult medical examination without abnormal findings, Z98.84 - Bariatric surgery status UA CC w/rflx Micro + Cult 1 Year R30.0 - Dysuria, Z00.00 - Encounter for general adult medical examination without abnormal findings, Z98.84 - Bariatric surgery status Vitamin D 25-OH Total 1 Year E55.9 - Vitamin D deficiency, unspecified, Z00.00 - Encounter for general adult medical examination without abnormal findings, Z98.84 - Bariatric surgery status Vitamin B1 1 Year Z00.00 - Encounter for general adult medical examination without abnormal findings, Z98.84 - Bariatric surgery status Free T4 (Free Thyroxine) 1 Year Z86.39 - Personal history of other endocrine, nutritional and metabolic disease
[2024-12-23 14:44] VITALS: BP 126/84; PULSE 68; O2SAT 98; BMI 39.8
== END 2024-12-23 15:59 | disposition home or self-care (01) ==
PROVIDERS: PCP Internal Medicine; Visit Provider Internal Medicine
DX: Z00.00 Encounter for general adult medical examination without abnormal findings (principal); J45.20 Mild intermittent asthma, uncomplicated; E66.9 Obesity, unspecified; Z68.39 Body mass index [BMI] 39.0-39.9, adult; D50.8 Other iron deficiency anemias; E50.9 Vitamin A deficiency, unspecified; E55.9 Vitamin D deficiency, unspecified; Z86.39 Personal history of other endocrine, nutritional and metabolic disease

== ENCOUNTER → 2024-12-23 14:33 | Outpatient (BNVA) | payer BC, SELFPAY | PROVIDERS: PCP Internal Medicine; Visit Provider Internal Medicine | DX: Z00.00 Encounter for general adult medical examination without abnormal findings (principal); D50.8 Other iron deficiency anemias; J45.20 Mild intermittent asthma, uncomplicated; E50.9 Vitamin A deficiency, unspecified; E55.9 Vitamin D deficiency, unspecified; E66.9 Obesity, unspecified; Z68.39 Body mass index [BMI] 39.0-39.9, adult; Z86.39 Personal history of other endocrine, nutritional and metabolic disease | CPT/HCPCS: 96127 ==